=== PATIENT | female | born 1950 | race Caucasian/White ===

== ENCOUNTER → 2017-10-07 08:41 | Outpatient (CLI) | payer BC, SELFPAY ==
--- NOTE | 2017-10-07 08:47 | NM_ITS ---
CLINICAL: 66-year-old female with reported history of carcinoma of the breast. WHOLE BODY 99m Tc MDP RADIONUCLIDE BONE SCINTIGRAPHY COMPARISON: None available FINDINGS: Following the intravenous administration of 26.2 mCi of 99m Tc MDP, whole body bone images reveal: 1. Increased radiopharmaceutical concentration is multifocally apparent in the bilateral ribs, thoracic and lumbar spine, focally demonstrated in the proximal sternum, left acetabulum, right frontal-temporal and left occipital calvarium. 2. Enhanced uptake is visualized in the bilateral knees, right-left midfoot, the visualized left hand, wrist articulations bilaterally. 3. The remaining skeletal structures are scintigraphically unremarkable with normal-appearing renal images and urinary bladder activity identified. NM/Bone Scan Whole Body IMPRESSION: 1. The increased radiopharmaceutical concentration identified in the axial skeletal structures and bilateral calvarium is consistent with skeletal metastatic disease. 2. Degenerative arthritis is otherwise defined in the bilateral knees, mid foot bilaterally, left hand, both wrist articulations. Electronically Signed: Chet Villanueva DO at 12:01 EDT Tel , Service support ,
== END ==
PROVIDERS: Family Provider Internal Medicine; PCP Internal Medicine; Visit Provider Orthopaedic Surgery
DX: M54.5 Low back pain (principal); M54.6 Pain in thoracic spine
CPT/HCPCS: 78306

== ENCOUNTER 2017-11-10 12:03 | Observation (INO) | payer BC, MEDICARE, SELFPAY ==
[2017-11-10] VITALS (12 sets, daily range): BP systolic 105–126; BP diastolic 68–79; PULSE 80–137; RESP 14–18; TEMP 36.3–36.9; O2SAT 95–99; BMI 27.8
--- NOTE | 2017-11-10 12:08 | EKG12_ITS ---
Test Reason : SYNCOPE Blood Pressure : / mmHG Vent. Rate : 127 BPM Atrial Rate : 127 BPM P-R Int : 126 ms QRS Dur : 124 ms QT Int : 336 ms P-R-T Axes : 047 056 -13 degrees QTc Int : 488 ms Sinus tachycardia Right bundle branch block Abnormal ECG Confirmed by BHARGAV SHIN, BOUBACAR ([id number]), manager editorial BARBARA CHILDERS ([id number]) on 11/12/2017 1:28:28 PM Referred By: Confirmed By:BOUBACAR DURANT MD
--- NOTE | 2017-11-10 13:06 | ED.DCSUM_ITS ---
History of Present Illness Chief Complaint: Syncope Informant: Patient, Family Onset: Yesterday Narrative: Patient just finished radiation treatment for cancer in her spine and right femur. She had a lot of diarrhea yesterday, at one point during this, she was on the toilet, she felt lightheaded and passed out, her was nearby and caught her lowering her to the floor without injury, and dragged her to the bedroom where he allowed her to sleep for about an hour. She woke up and felt tired and weak, that was yesterday. Today, no more lightheadedness or passing out, but she feels persistently weak. She is able to stand but only with assistance, thought this was unusual for her, as she is not on chemotherapy, and brought her for these reasons. She has some nausea, feels queasy in her abdomen but no necessary pain, symptoms she has had before but are little more prominent right now. She has been having some reflux symptoms as a result of her radiation and has been put on Nexium twice daily, states that this morning she noticed some chest tightness that is now gone, it was when she was lying down. No vomiting or fevers. Since this episode yesterday, she has been eating and drinking well and good urine output. - Past Medical History (1) GERD (gastroesophageal reflux disease) Status: Chronic (2) Migraine Status: Chronic (3) Breast cancer metastasized to bone Status: Chronic Past Medical History - Allergies and Home Meds Allergies/Adverse Reactions: Allergies alcohol Allergy (Verified 11/10/17 12:06) Rash codeine Allergy (Verified 11/10/17 12:06) Other levofloxacin [From Levaquin] Allergy (Verified 11/10/17 12:06) Rash Penicillins Allergy (Verified 11/10/17 12:06) Rash clarithromycin [From Biaxin] Adverse Reaction (Verified 11/10/17 12:06) Other erythromycin base Adverse Reaction (Verified 11/10/17 12:06) Upset Stomach Home Medications: Home Medications Medication Instructions Recorded Calcium Carbonate/Vitamin D3 1 tab PO BID 12/21/16 [Calcium 500-Vit D3 200 Tablet] Cholecalciferol (Vitamin D3) 1 cap PO DAILY 12/21/16 [D3-2000] Esomeprazole Mag Trihydrate 40 mg PO DAILY 12/21/16 [Nexium] Famotidine [Pepcid AC] 20 mg PO QHS 12/21/16 Multivitamin 1 tab PO DAILY 12/21/16 Naproxen [Naprosyn] 500 mg PO BID PRN #20 tablet 12/21/16 Rizatriptan Benzoate [Maxalt] 10 mg PO PRN PRN 12/21/16 Topiramate [Topamax] 25 mg PO DAILY 12/21/16 Dexamethasone [Decadron] 2 mg PO DAILY 11/10/17 Primary Care Physician: Gretchen Hurt MD [Primary Care Provider] - Surgical History: - - R breast lumpectomy Lives: Spouse/ Significant Other Smoking Status: Never smoker Review of Systems All systems negative except as indicated General: Reports: Malaise. Denies: Fever Gastrointestinal: Reports: Nausea, Diarrhea - gone since yesterday. Denies: Abdominal pain Musculoskeletal: Reports: Back pain - chronic, no different. worse w/ movement. Denies: Swelling, Extremity Pain Physical Exam Vital Signs/Narrative: Vital Signs Temp Pulse Resp BP Pulse Ox 11/10/17 12:03 97.3 F L 137 H 14 108/79 96 Inital Vital Signs reviewed: Yes General: Well nourished, Well developed Head: Normocephalic, Atraumatic Eyes: Perrl, EOMI ENT: Moist mucous membranes, No rhinorrhea Neck: Supple, Nontender Cardiovascular: Regular rate, Regular rhythm, No murmurs, Tachycardia - mild Respiratory: No distress, CTA bilaterally, Chest nontender Abdomen: Soft, Nontender, Nondistended, Normal bowel sounds Back: Nontender, Normal Inspection, - - painful ROM, needs assistance to sit up , but able Extremities: Nontender, No edema Skin: Normal color, No rash Neurological: Alert, Oriented x3, Cranial nerves II-XII grossly intact, Normal Strength, Normal Sensation Psychological: Normal affect Diagnostic/Tx/Re-eval Laboratory Tests 11/10/17 11/10/17 12:15 12:15 WBC 1.5 L RBC 4.75 Hgb 13.8 Hct 38.9 MCV 81.9 MCH 29.1 MCHC 35.5 RDW 13.5 RDW Differential 38.6 Plt Count 116 L MPV 8.7 Immature Gran % (Auto) 2.000 H Neut % (Auto) 69.4 Lymph % (Auto) 12.9 L [place] % (Auto) 14.3 H Eos % (Auto) 0.7 Baso % (Auto) 0.7 Absolute Neuts (auto) 1.0 L Absolute Lymphs (auto) 0.19 L Total Counted Not Reportable Differential Comment SCANNED Diff Path Review May foll Sodium 131 L Potassium 2.6 L* Chloride 94 L Carbon Dioxide 26.0 Anion Gap 11 BUN 28 H Creatinine 0.68 Estim Creat Clear Calc 41.99 Est GFR (MDRD) Af Amer 111 Est GFR (MDRD) Non-Af 92 BUN/Creatinine Ratio 41.3 H Glucose 121 H Calcium 8.3 L Total Bilirubin 1.20 H AST 32 ALT 18 Alkaline Phosphatase 213 H Total Protein 5.7 L Albumin 2.5 L Globulin 3.2 Albumin/Globulin Ratio 0.8 L - Medical Decision Making Patient's potassium is 2.6. This would explain her significant weakness. She states that she could stand but only with significant assistance and feels too weak to go home. I discussed with Dr. Vicente for admission/inpatient observation , I started IV and oral potassium on her. Her kidney function is normal. ED Disposition - Plan for ED Patient: Disposition: Acute Care Hospital [facility] Chief Complaint: Syncope Diagnosis: Hypokalemia, Acute diarrhea, Generalized weakness
[2017-11-10] MEDS: 0.9% Normal Saline 1,000 ML 999 ML IV (13:33)
[2017-11-10] MEDS: Ondansetron ODT 4 MG Tablet 8 MG PO (13:34)
[2017-11-10] MEDS: Mag Hydrox/Al Hydrox/Simeth 30 ML UDC PO (13:34)
[2017-11-10 13:48] LABS: ALB/GLOB Ratio 0.8 RATIO (0.9-2.4); AST(SGOT) 32 U/L (15-37); Alanine Aminotransfer ALT/SGPT 18 U/L (13-56); Albumin, Serum 2.5 g/dL (3.2-5.0); Alkaline Phosphatase 213 U/L (45-117); Anion Gap 11 (5-15); BUN 28 mg/dL (7-18); BUN/Creat Ratio 41.3 RATIO (10-20); Calcium,Total 8.3 mg/dL (8.5-10.1); Chloride 94 mmol/L (98-107); Creatinine, Serum 0.68 mg/dL (0.55-1.02); EST Glomerular Filtration Rate 92 mL/min (>60); Est Glom Filt Rate - Afr Amer 111 mL/min (>60); Estimated Creatinine Clearance 41.99 ml/min; Globulin 3.2 g/dL (2.2-4.2); Glucose 121 mg/dL (74-106); Potassium 2.6 mmol/L (3.5-5.1); Protein, Total 5.7 g/dL (6.4-8.2); Sodium Level 131 mmol/L (136-145)
[2017-11-10 13:59] LABS: Absolute Lymphocyte Count 0.19 X10^3/ul (0.83-4.51); Basophil# 0.01 X10^3/uL; Basophil% 0.7 % (0-1); Eosinophil# 0.01 X10^3/uL; Eosinophils% 0.7 % (0-5); Hematocrit 38.9 % (37-47); Lymphocyte # 0.19 X10^3/ul (4.0); Lymphocyte % 12.9 % (19-41); Mean Corpuscular Volume 81.9 fL (81-99); Mean Platelet Vol. 8.7 fl (6.2-12.0); Monocyte# 0.21 X10^3/uL; Monocyte% 14.3 % (0-10); Neutrophil # 1.02 X10^3/uL (2.7-7.7); Neutrophil % 69.4 % (47-70); Platelet Count 116 K/mm3 (150-450); RBC Distribution Width CV 13.5 % (11.6-14.6); RBC Distribution Width SD 38.6 fl (35.1-43.9); Red Blood Count 4.75 M/mm3 (4.2-5.4); White Blood Count 1.5 K/mm3 (4.4-11.0)
[2017-11-10 14:00] LABS: Differential Indicated SCAN CRITERIA MET; POSITIVE COUNT YES; POSITIVE DIFFERENTIAL YES; POSITIVE MORPHOLOGY YES
[2017-11-10 14:01] LABS: Hemoglobin 13.8 g/dl (12.0-15.0); Mean Corp Hgb Conc 35.5 g/gl (32-36); Mean Corpuscular Hgb 29.1 pg (27.0-32.0)
[2017-11-10 14:10] LABS: Differential Comment SCANNED
--- NOTE | 2017-11-10 15:06 | NURSING ---
MED SURG OBS HYPOKALEMIA, DEHYDRATION AFTER CHEMO SELENE
--- NOTE | 2017-11-10 15:22 | NURSING ---
DR MORTON IN ER
[2017-11-10 15:25] LABS: Magnesium 1.9 mg/dL (1.6-2.6); Phosphorus 2.5 mg/dL (2.5-4.9)
--- NOTE | 2017-11-10 15:54 | HP.PCM_ITS ---
Problem List (1) GERD (gastroesophageal reflux disease) Status: Chronic (2) Migraine Status: Chronic (3) Breast cancer metastasized to bone Status: Chronic (4) Hypokalemia Status: Acute (5) Acute diarrhea Status: Acute (6) Generalized weakness Status: Acute History of Present Illness Date of Admission: 11/10/17 Chief Complaint: Generalized weakness and syncope yesterday The patient is a 67 year old F with history of seizure breast, diagnosed in 2010 , follows Dr. 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 She had 2-3 watery diarrhea and she also passed out when she stood up but her caught up and she did not fall. In ED, she was found very dehydrated. Orthostatic does not show postural hypotension. Potassium was found very low, K2.6 EKG shows sinus tachycardia with right bundle branch block at 1 27 bpm. Previous EKG in July 2012 shows sinus bradycardia with right bundle block. [] Past Medical History Past Medical History (Chronic Problems): Chronic Problems GERD (gastroesophageal reflux disease) (Chronic) Migraine (Chronic) Breast cancer metastasized to bone (Chronic) Allergies alcohol Allergy (Verified 11/10/17 12:06) Rash codeine Allergy (Verified 11/10/17 12:06) Other levofloxacin [From Levaquin] Allergy (Verified 11/10/17 12:06) Rash Penicillins Allergy (Verified 11/10/17 12:06) Rash clarithromycin [From Biaxin] Adverse Reaction (Verified 11/10/17 12:06) Other erythromycin base Adverse Reaction (Verified 11/10/17 12:06) Upset Stomach Home Medications: Ambulatory Orders Medication Instructions Recorded Calcium Carbonate/Vitamin D3 1 tab PO BID 12/21/16 [Calcium 500-Vit D3 200 Tablet] Cholecalciferol (Vitamin D3) 1 cap PO DAILY 12/21/16 [D3-2000] Esomeprazole Mag Trihydrate 40 mg PO DAILY 12/21/16 [Nexium] Famotidine [Pepcid AC] 20 mg PO QHS 12/21/16 Multivitamin 1 tab PO DAILY 12/21/16 Naproxen [Naprosyn] 500 mg PO BID PRN #20 tablet 12/21/16 Rizatriptan Benzoate [Maxalt] 10 mg PO PRN PRN 12/21/16 Topiramate [Topamax] 25 mg PO DAILY 12/21/16 Dexamethasone [Decadron] 2 mg PO DAILY 11/10/17 Surgical History: - - R breast lumpectomy Lives: Spouse/ Significant Other Smoking Status: Never smoker - *Family History Paternal History Items: No pertinent history Review of Systems Constitutional: Denies: Chills, Fever, Weight Change HEENT: Denies: Head Aches, Sinus Congestion, Sinus Drainage Cardiovascular: Reports: Syncope. Denies: Chest Pain, Palpitations Respiratory: Denies: Cough, Shortness of breath at rest, Sputum production Gastrointestinal: Reports: Diarrhea. Denies: Abdominal Pain, Nausea, Vomiting Genitourinary: Denies: Dysuria Musculoskeletal: Denies: Joint Pain, Joint Tenderness Skin: Denies: Rash, Wounds Neurological: Denies: Numbness, Tingling, Focal weakness Psychiatric: Denies: Anxiety, Depression, Homicidal Ideations, Suicidal Ideations Hematologic/ Lymphatic: Denies: Easy Bruising, Easy Bleeding VTE Information - Inpt Only VTE Present on Admission: No VTE Mechan Device Prophylaxis: SCD's VTE Pharm Prophylaxis ordered?: Yes Patient Problems: Active and Suspected Problems Hypokalemia (Acute) Acute diarrhea (Acute) Generalized weakness (Acute) - Physical Exam General: Alert, Oriented x3, Cooperative HEENT: Atraumatic, PERRLA, EOMI, Normocephalic Oral: Dry Mucosa Neck: Supple, No JVD, Negative Carotid Bruits Lungs: Clear to auscultation, Normal air movement, No rhonchi, No wheeze, No rales Cardiovascular: Regular rate, Regular Rhythm, Normal S1, Normal S2, No murmurs Abdomen: Bowel Sounds Present, Soft, Non Tender Extremities: No edema, Capillary Refill Less than 3 Seconds Skin: No rashes, No breakdown Musculoskeletal: Arthritic Changes, Muscle Wasting, Tenderness - Over thoracic spine Neurological: Cranial nerves II-XII grossly intact, Neuro grossly intact Psych/Mental Status: Normal Affect, Appropriate Vital Signs Temp Pulse Resp BP Pulse Ox 97.3 F L 85 14 106/70 99 11/10/17 12:03 11/10/17 15:09 11/10/17 15:09 11/10/17 15:09 11/10/17 15:09 Oxygen Delivery Method Room Air Assessment/Plan Active and Suspected Problems Hypokalemia (Acute) Acute diarrhea (Acute) Generalized weakness (Acute) The patient is a 67 year old F with history of seizure breast, diagnosed in 2010 , follows Dr. 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 She had 2-3 watery diarrhea and she also passed out when she stood up but her caught up and she did not fall. In ED, she was found very dehydrated. Orthostatic does not show postural hypotension. Potassium was found very low, K2.6 EKG shows sinus tachycardia with right bundle branch block at 1 27 bpm. Previous EKG in July 2012 shows sinus bradycardia with right bundle block. Patient denies chest pain, any change in breathing, palpitation or diaphoresis. No history of coronary artery disease. [] 1. Syncope most probably secondary to dehydration from diarrhea: Patient is being admitted in MedSur floor on telemetry. IV fluid rehydration with normal saline. Monitor intake and output. Orthostatic vital check tomorrow a.m. 2D echo tomorrow a.m. 2. Acute hypokalemia most probably from diarrhea: Potassium replacement. Monitor BMP tomorrow a.m. 3. Acute hypovolemic hypotonic hyponatremia: Sodium 131. Baseline runs around 139-141. On IV fluid normal saline as mentioned above 4. CA breast with metastases to bone, stage IV on radiotherapy. Patient follows Dr. Hoffman. Other chronic comorbidities include migraine, GERD. Controlled. Patient does not have headache now. Home medication reconciliation done. Patient is on PPI and famotidine. DVT prophylaxis, moderate risk: On heparin 500 Danae's twice daily and bilateral SCDs. Laboratory Results 11/10/17 12:15: WBC 1.5 L, RBC 4.75, Hgb 13.8, Hct 38.9, MCV 81.9, MCH 29.1, MCHC 35.5, RDW 13.5, RDW Differential 38.6, Plt Count 116 L, MPV 8.7, Immature Gran % (Auto) 2.000 H, Neut % (Auto) 69.4, Lymph % (Auto) 12.9 L, [place] % (Auto) 14.3 H, Eos % (Auto) 0.7, Baso % (Auto) 0.7, Absolute Neuts (auto) 1.0 L, Absolute Lymphs (auto) 0.19 L, Total Counted Not Reportable, Differential Comment SCANNED, Diff Path Review October11/10/17 12:15: Sodium 131 L, Potassium 2.6 L*, Chloride 94 L, Carbon Dioxide 26.0, Anion Gap 11, BUN 28 H, Creatinine 0.68, Estim Creat Clear Calc 41.99, Est GFR (MDRD) Af Amer 111, Est GFR (MDRD) Non-Af 92, BUN/Creatinine Ratio 41.3 H, Glucose 121 H, Calcium 8.3 L, Total Bilirubin 1.20 H, AST 32, ALT 18, Alkaline Phosphatase 213 H, Total Protein 5.7 L, Albumin 2.5 L, Globulin 3.2, Albumin/Globulin Ratio 0.8 L 11/10/17 12:15: Phosphorus 2.5, Magnesium 1.9 Code Visit OBSV E&M: 22813 Initial observation care L3
--- NOTE | 2017-11-10 16:11 | ECHOD_ITS ---
Reason For Study: Syncope Procedure This was a 2D Doppler, Color Flow transthoracic echocardiogram. The exam was of adequate technical quality. Exam performed portable in patient room. Left Ventricle Normal LV size. Left ventricular systolic function is hyperdynamic. The estimated ejection fraction is 75 %. No evidence for diastolic dysfunction. No regional wall motion abnormalities noted. Right Ventricle Normal RV size. Normal systolic function. Atria Normal left atrium. Normal right atrium. No doppler evidence for ASD. Mitral Valve There is no mitral annular calcification. Mild mitral valve prolapse. Trivial mitral valve insufficiency. Tricuspid Valve Normal tricuspid valve. Trivial tricuspid valve insufficiency. Aortic Valve Trisinus/trileaflet aortic valve. Normal aortic valve. Pulmonic Valve Normal pulmonic valve. Great Vessels Normal sized aortic root. Pericardium/Pleural No pericardial effusion. MMode/2D Measurements & Calculations LVIDd: 3.5 cm IVSd: 1.1 cm Ao root diam: 2.6 cm LVIDs: 1.6 cm LVPWd: 1.1 cm LA dimension: 2.7 cm FS: 54.5 % LAV(MOD-bp): 21.6 ml LA A4 area: 9.1 cm2 RA A4 area: 7.8 cm2 LAV(MOD-bp) Indexed: 12.7 ml/m2 LAV(MOD-sp2): 23.9 ml LAV(MOD-sp4): 18.8 ml Doppler Measurements & Calculations MV E max jerry: 60.0 cm/sec Lat Peak E' Jerry: 9.0 cm/sec Med Peak E' Jerry: 6.1 cm/sec MV A max jerry: 85.3 cm/sec E/E' lat: 6.7 E/E' med: 9.9 MV E/A: 0.70 Ao V2 max: 166.4 cm/sec LV V1 max: 126.1 cm/sec PA V2 max: 153.1 cm/sec Ao max P.1 mmHg LV V1 max P.4 mmHg Interpretation Summary Left ventricular systolic function is hyperdynamic. The estimated ejection fraction is 75 %. Mild mitral valve prolapse. Trivial mitral valve insufficiency. Trivial tricuspid valve insufficiency. No evidence for diastolic dysfunction. Ordering Physician: Eliseo Vicente Referring Physician: Gretchen Hurt Performed By: Kaylynn Zimmer RDCS
[2017-11-10] MEDS: 0.9% Normal Saline 1,000 ML 150 ML IV ×2 (16:30→22:13)
[2017-11-10] MEDS: Heparin Injection (Vial) 5,000 UNIT/ML VIAL 5000 UNIT SC (18:43)
[2017-11-10 18:57] LABS: Bacteria 0 SEEN /hpf (None Seen); Mucous, Urine 0 SEEN /hpf (<or=2+); Red Blood Cells-Urine 0 SEEN /hpf (0-5)
[2017-11-10 19:13] LABS: Color, Urine Yellow (Yellow); Glucose, Dipstick Normal (Normal); Ketone-Dipstick Negative (Negative); Leukocyte Esterase-Dipstick Negative /ul (Negative); Nitrite-Dipstick Negative (Negative); Occult Blood-Urine Negative /ul (Negative); Protein-Dipstick Negative (Negative); Urine Bilirubin Dipstick Negative (Negative); Urine Clarity Sl. Cloudy (Clear); Urine Urobilinogen Normal (Normal)
[2017-11-10 19:19] LABS: Squamous Epithelial Cells - UA 0-5 SEEN /hpf (5-10); White Blood Cells 0-5 SEEN /hpf (0-5)
[2017-11-10] MEDS: Famotidine 20 MG Tablet PO (22:15)
[2017-11-10] MEDS: Calcium Carb/Vitamin D 1 TABLET Tablet PO (22:15)
[2017-11-10] MEDS: Topiramate 25 MG Tablet PO (22:54)
[2017-11-11] VITALS (15 sets, daily range): BP systolic 117–143; BP diastolic 59–106; PULSE 80–130; RESP 16–18; TEMP 36.4–37.1; O2SAT 96–99
[2017-11-11] MEDS: 0.9% Normal Saline 1,000 ML 150 ML IV (04:57)
--- NOTE | 2017-11-11 06:10 | NURSING ---
while doing orthostatic vitals pt became very anxious. when returned to bed calmed down heart rate wnl
[2017-11-11 06:39] LABS: Hematocrit 32.7 % (37-47); Hemoglobin 11.5 g/dl (12.0-15.0); Mean Corp Hgb Conc 35.2 g/gl (32-36); Mean Corpuscular Hgb 29.6 pg (27.0-32.0); Mean Corpuscular Volume 84.3 fL (81-99); Mean Platelet Vol. 8.2 fl (6.2-12.0); Platelet Count 73 K/mm3 (150-450); RBC Distribution Width SD 42.2 fl (35.1-43.9); Red Blood Count 3.88 M/mm3 (4.2-5.4)
[2017-11-11 06:40] LABS: Differential Indicated MANUAL DIFF; POSITIVE COUNT YES; POSITIVE DIFFERENTIAL YES; POSITIVE MORPHOLOGY YES; White Blood Count 1.2 K/mm3 (4.4-11.0)
[2017-11-11 06:41] LABS: Anion Gap 7 (5-15); BUN 16 mg/dL (7-18); Calcium,Total 7.6 mg/dL (8.5-10.1); Chloride 105 mmol/L (98-107); Creatinine, Serum 0.32 mg/dL (0.55-1.02); EST Glomerular Filtration Rate 218 mL/min (>60); Est Glom Filt Rate - Afr Amer 263 mL/min (>60); Estimated Creatinine Clearance 41.99 ml/min; Glucose 76 mg/dL (74-106); Potassium 3.3 mmol/L (3.5-5.1); Sodium Level 138 mmol/L (136-145)
[2017-11-11 07:28] LABS: Lymphocyte 22 % (19-41); Metamyelocyte 1 % (0-1); Neutrophil-Band 35 % (0-5); Neutrophil-Segmented 42 % (47-70); Nucleated Red Bld Cells,Manual 3 % (0-5); Total Cells Counted 100 (MANUAL DIFF)
[2017-11-11 07:29] LABS: Platelet Estimate SLT DEC (ADEQ); Red Cell Morphology NORM C+C NORMAL (NORM C&C)
[2017-11-11 07:30] LABS: Differential Comment M
[2017-11-11] MEDS: Multivitamins,Therapeutic Tablet 1 TABLET PO (07:44)
--- NOTE | 2017-11-11 09:35 | PN_ITS ---
Patient Problems: Active and Suspected Problems Hypokalemia (Acute) Acute diarrhea (Acute) Generalized weakness (Acute) Subjective: Chief complaint: Follow-up after admission for syncopal episode, acute diarrheal illness, hypokalemia, hyponatremia, leukopenia, neutropenia and thrombocytopenia. Patient seen and examined. No acute events overnight. She is still complaining of diarrhea, 3 times since last night. Denied nausea vomiting. She complains of mild abdominal cramps. Denies fever chills. Denies urinary symptoms. No chest pain or shortness of breath. Denied dizziness or lightheadedness. She is afebrile, blood pressure stable, pulse ox is maintained on room air. - Physical Exam General: Alert, Oriented x3, Cooperative, No apparent distress HEENT: Atraumatic, PERRLA, EOMI Oral: Moist Mucosa, No Gingival or Mucosal Lesions/ Ulcerations Neck: Supple, No JVD, Negative Carotid Bruits, Trachea Midline, Thyroid Normal Size and Texture Lungs: Clear to auscultation, No rhonchi, No wheeze, No rales, Diminished Cardiovascular: Regular rate, Regular Rhythm, Normal S1, Normal S2, No murmurs Abdomen: Bowel Sounds Present, Soft, Non Tender, Non-Distended, No Hepato- splenomegaly Extremities: No clubbing, No cyanosis, No edema Skin: No rashes, No breakdown Lymphatic: No Cervical, Supraclavicular, or Inguinal Adenopathy Neurological: Cranial nerves II-XII grossly intact, Motor Exam 5/5 strength throughout Psych/Mental Status: Normal Affect, Appropriate, Alert and oriented to time, place, person, mood and affect Vital Signs Temp Pulse Resp BP Pulse Ox 98.3 F 90 16 133/83 H 99 11/11/17 02:31 11/11/17 06:50 11/11/17 02:31 11/11/17 06:50 11/11/17 06:50 Oxygen Delivery Method Room Air Weight: 151 lb 14.376 oz Body Mass Index (BMI) 27.8 Orthostatic Vital Signs Start: 11/10/17 16:50 Freq: 0600 Status: Active Protocol: Activity Type Activity Date Activity User E-Sign Co-Sign Detail Recorded Client Recorded Date Recorded By Document 11/11/17 06:08 [facility] [id number] 11/11/17 06:10 [place] 11/11/17 06:08 Orthostatic Vitals Standing -Blood Pressure (90/60-120/80) 140/100 H -Extremity Use Left Arm -Pulse Rate (60-100) 130 H Sitting -Blood Pressure (90/60-120/80) 143/106 H -Extremity Use Left Arm -Pulse Rate (60-100) 106 H Lying -Blood Pressure (90/60-120/80) 134/74 H -Extremity Use Left Arm -Pulse Rate (60-100) 87 Intake and Output for Last 24 Hours 11/09/17 11/10/17 11/11/17 23:59 23:59 23:59 Intake Total 585 / 585 1805 / 1805 Output Total 250 / 250 300 / 300 Balance 335 / 335 1505 / 1505 Laboratory Tests Past 24 Hrs 11/10/17 11/10/17 11/11/17 16:46 18:45 05:44 WBC 1.2 L* RBC 3.88 L Hgb 11.5 L Hct 32.7 L MCV 84.3 MCH 29.6 MCHC 35.2 RDW 14.0 RDW Differential 42.2 Plt Count 73 L MPV 8.2 Neut % (Auto) Not Reportable Absolute Neuts (auto) Not Reportable Total Counted 100 Neutrophils % (Manual) 42 L Band Neutrophils % 35 H Lymphocytes % (Manual) 22 Metamyelocytes % 1 Nucleated RBCs/100 WBC 3 Differential Comment M Diff Path Review May foll Platelet Estimate SLT DEC RBC Morphology NORM C+C Sodium Potassium Chloride Carbon Dioxide Anion Gap BUN Creatinine Estim Creat Clear Calc Est GFR (MDRD) Af Amer Est GFR (MDRD) Non-Af BUN/Creatinine Ratio Glucose Calcium Troponin I 0.036 Urine Color Yellow Urine Clarity Sl. Cloudy Urine pH 7.0 Ur Specific [place] 1.010 Urine Protein Negative Urine Glucose (UA) Normal Urine Ketones Negative Urine Occult Blood Negative Urine Nitrite Negative Urine Bilirubin Negative Urine Urobilinogen Normal Ur Leukocyte Esterase Negative Urine RBC 0 SEEN Urine WBC 0-5 SEEN Ur Squamous Epith Cells 0-5 SEEN Urine Bacteria 0 SEEN Urine Mucus 0 SEEN 11/11/17 05:44 WBC RBC Hgb Hct MCV MCH MCHC RDW RDW Differential Plt Count MPV Neut % (Auto) Absolute Neuts (auto) Total Counted Neutrophils % (Manual) Band Neutrophils % Lymphocytes % (Manual) Metamyelocytes % Nucleated RBCs/100 WBC Differential Comment Diff Path Review Platelet Estimate RBC Morphology Sodium 138 Potassium 3.3 L Chloride 105 Carbon Dioxide 26.0 Anion Gap 7 BUN 16 Creatinine 0.32 L Estim Creat Clear Calc 41.99 Est GFR (MDRD) Af Amer 263 Est GFR (MDRD) Non-Af 218 BUN/Creatinine Ratio 50.0 H Glucose 76 Calcium 7.6 L Troponin I Urine Color Urine Clarity Urine pH Ur Specific [place] Urine Protein Urine Glucose (UA) Urine Ketones Urine Occult Blood Urine Nitrite Urine Bilirubin Urine Urobilinogen Ur Leukocyte Esterase Urine RBC Urine WBC Ur Squamous Epith Cells Urine Bacteria Urine Mucus Medical Necessity - Tobacco Use Smoking Status: Never smoker Tobacco Use: Non-smoker Assessment/Plan Active and Suspected Problems Hypokalemia (Acute) Acute diarrhea (Acute) Generalized weakness (Acute) This is a 67 years old female patient presented to the emergency room because of syncope, weakness and diarrhea and she was found to have severe hypokalemia, hyponatremia, leukopenia, neutropenia and thrombocytopenia. #1 syncopal episode: Dehydration because of acute diarrhea. Today, blood pressure stabilized. She denied dizziness or lightheadedness. She is on IV fluids. 2D echocardiogram revealed ejection fraction 75%, LV function is hyperdynamic. Plan: Encourage oral intake, change IV fluids to normal saline with potassium chloride at 75 cc/h, repeat orthostatic vitals tomorrow morning, repeat CBC and BMP tomorrow morning, PT OT evaluation and treatment. #2 acute diarrheal illness: She still symptomatic having diarrhea. Denied abdominal pain, nausea vomiting. Denies fever chills. Plan: Stool for C. difficile, stool for enteric pathogens, continue hydration. #3 hypokalemia/hyponatremia: Attributed to acute diarrhea in addition to HCTZ that she has been taking. Serum phosphorus and magnesium are normal. She is on potassium replacement orally as well as IV fluids. Potassium improved from 2.6 on admission up to 3.2 this morning. Plan: Change IV fluids to normal saline with IV potassium chloride at 75 cc/h, DC. Potassium, repeat BMP tomorrow morning. #4 leukopenia/neutropenia/thrombocytopenia: Likely because of radiation therapy and breast cancer that metastasized to bone, thoracic spine and also could be worsened by hemodilution she has been on large amounts of IV fluids.. She is afebrile, no evidence of infection. No evidence of bleeding. Plan: Neutropenic precautions, repeat CBC with differential tomorrow morning. #5 metastatic breast cancer, with metastases to bone, stage IV: Completed radiation therapy, plan to start chemotherapy in the near future, she follows up with Dr. Hoffman as outpatient. #6 DVT prophylaxis: Subcu heparin. This note was generated with [employer] dictation software. It may contain incorrect words, spelling, and punctuation that were not noted in checking the note before signing. Code Visit Inpatient E&M: 99643 Subs Hosp L3
[2017-11-11] MEDS: Pantoprazole Sodium 40 MG Tablet PO (10:07)
[2017-11-11] MEDS: Calcium Carb/Vitamin D 1 TABLET Tablet PO ×2 (10:08→22:07)
[2017-11-11] MEDS: Heparin Injection (Vial) 5,000 UNIT/ML VIAL 5000 UNIT SC ×2 (10:08→22:07)
[2017-11-11 11:06] LABS: Pathologist Review Reviewed
[2017-11-11 11:08] LABS: Pathologist Review Reviewed
--- NOTE | 2017-11-11 12:36 | CASEMGMT ---
Social Work Note NORA Linares updated this worker that pt has weakness and that PT has seen pt and that the recommendation is for further skilled therapy. NORA Linares states that pt is agreeable to home health care. SW updated NORA Dougherty of this. Plan: MARISA Coronado PRODUCTION TEAM MANAGER, PIGMENT MAKING SUPERVISOR
--- NOTE | 2017-11-11 14:23 | CASEMGMT ---
RN TERRANCE DC Planning Assessment completed, see link. Home care recommended by PT/OT. -Intro role of CM to patient in room. States she is normally independent, however increased weakness recently. R -RN TERRANCE discussed home care. pt is agreeable, no preference. [facility] and able to staff. Referral faxed. Pt updated and agency/phone # entered in DC appointments. Copy given to pt. [facility] PH: [phone] FX: [phone]
--- NOTE | 2017-11-11 16:16 | CHAPLAIN ---
Type of Pastoral Visit _x__ Initial Visit ___ Follow-up Visit ___ On-call Visit ___ General Patient Visit ___ Spiritual Assessment ___ Family Conference ___ Bereavement ___ Rapid Response ___ Code Blue ___ Other (describe below) Pastoral Care Referral From _x__ Patient ___ Family ___ Nurse ___ Physician ___ Avionics Manager ___ Election Supervisor ___ Other (describe below) Sacrament/Intervention _x__ Active listening ___ Anointing ___ Congregational ___ Bereavement ___ Communion ___ Lorenza exploration ___ ___ Life review _x__ Prayer ___ Reconciliation ___ Sacrament of Sick _x__ Supportive presence ___ Wedding ___ Other (describe below) Pastoral Comments
[2017-11-11] MEDS: Topiramate 25 MG Tablet PO (22:07)
[2017-11-11] MEDS: Famotidine 20 MG Tablet PO (22:07)
[2017-11-12] VITALS (9 sets, daily range): BP systolic 120–140; BP diastolic 55–101; PULSE 90–146; RESP 16–18; TEMP 37.1–37.2; O2SAT 97–98
[2017-11-12 05:58] LABS: Hematocrit 31.8 % (37-47); Mean Corp Hgb Conc 34.6 g/gl (32-36); Mean Corpuscular Hgb 29.6 pg (27.0-32.0); Mean Corpuscular Volume 85.5 fL (81-99); Mean Platelet Vol. 8.3 fl (6.2-12.0); Platelet Count 67 K/mm3 (150-450); RBC Distribution Width CV 14.4 % (11.6-14.6); RBC Distribution Width SD 43.8 fl (35.1-43.9); Red Blood Count 3.72 M/mm3 (4.2-5.4)
[2017-11-12 06:11] LABS: Anion Gap 8 (5-15); BUN 14 mg/dL (7-18); BUN/Creat Ratio 60.1 RATIO (10-20); Calcium,Total 7.6 mg/dL (8.5-10.1); Chloride 107 mmol/L (98-107); Creatinine, Serum 0.23 mg/dL (0.55-1.02); EST Glomerular Filtration Rate 314 mL/min (>60); Est Glom Filt Rate - Afr Amer 380 mL/min (>60); Estimated Creatinine Clearance 41.99 ml/min; Glucose 89 mg/dL (74-106); Potassium 4.2 mmol/L (3.5-5.1); Sodium Level 140 mmol/L (136-145)
--- NOTE | 2017-11-12 06:13 | NURSING ---
while standing to preform orthostatic BP pt's heart rate and BP became elevate. Improved after returning to bed
[2017-11-12 06:52] LABS: Lymphocyte 16 % (19-41); Neutrophil-Band 20 % (0-5); Neutrophil-Segmented 64 % (47-70); Total Cells Counted 25 (MANUAL DIFF)
[2017-11-12 06:55] LABS: Differential Indicated MANUAL DIFF; POSITIVE COUNT YES; POSITIVE DIFFERENTIAL YES; POSITIVE MORPHOLOGY YES; White Blood Count 1.4 K/mm3 (4.4-11.0)
[2017-11-12 07:04] LABS: Absolute Neutrophil Count 1.1 X10^3/uL (2.0-7.7)
[2017-11-12 07:05] LABS: Absolute Lymphocyte Count 0.22 X10^3/ul (0.83-4.51)
--- NOTE | 2017-11-12 07:56 | PCM.PROGNOTE ---
Patient Problems: Active and Suspected Problems Hypokalemia (Acute) Acute diarrhea (Acute) Generalized weakness (Acute) Subjective: Chief complaint: Follow-up after admission for syncopal episode, acute diarrheal illness, abdominal pain/cramping, hypokalemia, hyponatremia, leukopenia, neutropenia and thrombocytopenia. Patient seen and examined. No acute events overnight. She is still complaining of abdominal pain described as cramping, could not eat for the last few days. Denied nausea or vomiting. She has no more diarrhea. Her vital signs are stable. - Physical Exam General: Alert, Oriented x3, Cooperative, No apparent distress HEENT: Atraumatic, PERRLA, EOMI Oral: Moist Mucosa, No Gingival or Mucosal Lesions/ Ulcerations Neck: Supple, No JVD, Negative Carotid Bruits, Trachea Midline, Thyroid Normal Size and Texture Lungs: Clear to auscultation, No rhonchi, No wheeze, No rales, Diminished Cardiovascular: Regular rate, Regular Rhythm, Normal S1, Normal S2, No murmurs, PMI Normal Abdomen: Bowel Sounds Present, Soft, Non-Distended, No Hepato-splenomegaly, Tender - Generalized mild tenderness, no guarding or rigidity. Extremities: No clubbing, No cyanosis, No edema Skin: No rashes, No breakdown Lymphatic: No Cervical, Supraclavicular, or Inguinal Adenopathy Neurological: Cranial nerves II-XII grossly intact, Neuro grossly intact Psych/Mental Status: Normal Affect, Appropriate Vital Signs Temp Pulse Resp BP Pulse Ox 98.7 F 90 16 122/70 H 97 11/12/17 02:15 11/12/17 06:20 11/12/17 02:15 11/12/17 06:20 11/12/17 02:15 Oxygen Delivery Method Room Air Weight: 151 lb 14.376 oz Body Mass Index (BMI) 27.8 Orthostatic Vital Signs Start: 11/10/17 16:50 Freq: 0600 Status: Active Protocol: Activity Type Activity Date Activity User E-Sign Co-Sign Detail Recorded Client Recorded Date Recorded By Document 11/12/17 06:11 [facility] [id number] 11/12/17 06:12 [facility] 11/12/17 06:11 Orthostatic Vitals Standing -Blood Pressure (90/60-120/80) 140/101 H -Extremity Use Right Arm -Pulse Rate (60-100) 146 H Sitting -Blood Pressure (90/60-120/80) 120/95 H -Extremity Use Right Arm -Pulse Rate (60-100) 134 H Lying -Blood Pressure (90/60-120/80) 124/80 H -Extremity Use Right Arm -Pulse Rate (60-100) 108 H Intake and Output for Last 24 Hours 11/10/17 11/11/17 11/12/17 23:59 23:59 23:59 Intake Total 585 / 585 4367 / 4367 875 / 875 Output Total 250 / 250 300 / 300 Balance 335 / 335 4067 / 4067 875 / 875 Laboratory Tests Past 24 Hrs 11/11/17 11/12/17 11/12/17 05:44 05:24 05:24 WBC 1.4 L* RBC 3.72 L Hgb 11.0 L Hct 31.8 L MCV 85.5 MCH 29.6 MCHC 34.6 RDW 14.4 RDW Differential 43.8 Plt Count 67 L MPV 8.3 Neut % (Auto) Not Reportable Absolute Neuts (auto) 1.1 L Absolute Lymphs (auto) 0.22 L Total Counted 25 Neutrophils % (Manual) 64 Band Neutrophils % 20 H Lymphocytes % (Manual) 16 L Diff Path Review Reviewed October Sodium 140 Potassium 4.2 Chloride 107 Carbon Dioxide 25.0 Anion Gap 8 BUN 14 Creatinine 0.23 L Estim Creat Clear Calc 41.99 Est GFR (MDRD) Af Amer 380 Est GFR (MDRD) Non-Af 314 BUN/Creatinine Ratio 60.1 H Glucose 89 Calcium 7.6 L Medical Necessity - Tobacco Use Smoking Status: Never smoker Tobacco Use: Non-smoker Assessment/Plan Active and Suspected Problems Hypokalemia (Acute) Acute diarrhea (Acute) Generalized weakness (Acute) This is a 67 years old female patient presented to the emergency room because of syncope, weakness and diarrhea and she was found to have severe hypokalemia, hyponatremia, leukopenia, neutropenia and thrombocytopenia. #1 syncopal episode: Dehydration because of acute diarrhea. Today, blood pressure stabilized. She denied dizziness or lightheadedness. Repeat orthostatic vitals this morning was unremarkable. She is on IV fluids. 2D echocardiogram revealed ejection fraction 75%, LV function is hyperdynamic. Patient is not eating because of abdominal cramps and discomfort. Plan to start her on Bentyl, diet as tolerated. #2 acute diarrheal illness: No stool sample sent for C. difficile or enteric pathogens. Denied abdominal pain, nausea vomiting. Denies fever chills. Resolved. 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 [employer] is not working. She has not been eating for the last 2 days. She is on Decadron. After discussion with Dr. Hoffman, we will start her on Bentyl every 6 hours, IV morphine ?1. #4 hypokalemia/hyponatremia: Attributed to acute diarrhea in addition to HCTZ that she has been taking. Serum phosphorus and magnesium are normal. Potassium replaced and corrected, today's potassium is 4.2. #5 leukopenia/neutropenia/thrombocytopenia: Likely because of radiation therapy and breast cancer that metastasized to bone, thoracic spine. No evidence of bleeding, infection. Absolute neutrophil count is 1100, it was not reportable yesterday. #6 metastatic breast cancer, with metastases to bone, stage IV: Completed radiation therapy, plan to start chemotherapy in the near future, she follows up with Dr. Hoffman as outpatient. #7 DVT prophylaxis: Subcu heparin. This note was generated with [employer] software. It may contain incorrect words, spelling, and punctuation that were not noted in checking the note before signing.
[2017-11-12] MEDS: Dicyclomine 10 MG Capsule PO ×2 (08:17→11:51)
[2017-11-12] MEDS: Morphine 4 MG/ML Syringe 1 MG IV (08:17)
[2017-11-12] MEDS: 0.9% Normal Saline 1,000 ML 75 ML IV (08:18)
[2017-11-12] MEDS: Multivitamins,Therapeutic Tablet 1 TABLET PO (08:19)
[2017-11-12] MEDS: Pantoprazole Sodium 40 MG Tablet PO (10:50)
[2017-11-12] MEDS: Calcium Carb/Vitamin D 1 TABLET Tablet PO (10:50)
[2017-11-12] MEDS: Heparin Injection (Vial) 5,000 UNIT/ML VIAL 5000 UNIT SC (10:50)
[2017-11-12 12:16] LABS: Pathologist Review Reviewed
--- NOTE | 2017-11-12 12:52 | PCM.DC ---
- Discharge Diagnoses Current Active Problems: Current Active and Chronic Problems GERD (gastroesophageal reflux disease) (Chronic) Migraine (Chronic) Breast cancer metastasized to bone (Chronic) Hypokalemia (Acute) Acute diarrhea (Acute) Generalized weakness (Acute) You will use the following diet at home:: Other - light diet, advance as tolerated. Your food should be the consistency of: Regular Discharge Activity: Return to Normal Activity Weight Bearing Status: Weight bearing as tolerated Call your doctor if you observe: Fever of 101 or Higher, Shortness of breath, Dizziness, Fainting spells, Chest pain, Increased palpitations (irregular heartbeat), Uncontrolled pain Allergies/Adverse Reactions: Allergies alcohol Allergy (Verified 11/10/17 12:06) Rash codeine Allergy (Verified 11/10/17 12:06) Other levofloxacin [From Levaquin] Allergy (Verified 11/10/17 12:06) Rash Penicillins Allergy (Verified 11/10/17 12:06) Rash clarithromycin [From Biaxin] Adverse Reaction (Verified 11/10/17 12:06) Other erythromycin base Adverse Reaction (Verified 11/10/17 12:06) Upset Stomach Medications to take at Discharge Calcium Carbonate/Vitamin D3 [Calcium 500-Vit D3 200 Tablet] 1 tab PO DAILY 12/21/16 Cholecalciferol (Vitamin D3) [D3-2000] 2,000 unit PO DAILY 12/21/16 Esomeprazole Mag Trihydrate [Nexium] 40 mg PO DAILY 12/21/16 Famotidine [Pepcid AC] 20 mg PO QHS 12/21/16 Rizatriptan Benzoate [Maxalt] 10 mg PO PRN PRN 12/21/16 Topiramate [Topamax] 25 mg PO QHS 12/21/16 Dexamethasone [Decadron] 2 mg PO DAILY 11/10/17 Hydrochlorothiazide [Hctz] 25 mg PO DAILY 11/10/17 Multivitamins,Therapeutic [Multivitamin] 1 tablet PO DAILY 11/10/17 Potassium Chloride [Klor-Con M20] 20 meq PO BID 11/10/17 Dicyclomine HCl [Bentyl] 10 mg PO Q6H PRN PRN #30 cap 11/12/17 The following prescriptions were given: Dicyclomine HCl [Bentyl] 10 mg PO Q6H PRN PRN #30 cap PRN Reason: abdominal pain, cramps. Primary Care Physician: Gretchen Hurt MD [Primary Care Provider] - Please follow up with your Primary Care Physician in: 1 week. Please Follow Up With: Poncho Hoffman DO When: please call his office. Please Follow Up With: [facility] When: [phone]
--- NOTE | 2017-11-12 15:30 | PCM.DC.SUM ---
Discharge Date and Diagnosis Date of Admission: 11/10/17 Date of Discharge: 11/12/17 - Primary Discharge Diagnosis #1 syncopal episode, attributed to vasovagal syncope due to dehydration and acute diarrhea. 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 #3 hypokalemia/hyponatremia. #4 leukopenia/neutropenia/thrombocytopenia. - Secondary Discharge Diagnosis Chronic Problems GERD (gastroesophageal reflux disease) (Chronic) Migraine (Chronic) Breast cancer metastasized to bone (Chronic) Hospital Course and Treatment Operations: None Procedures: None Summary of Care Provided: This is a 67 years old female patient presented to the emergency room because of syncope, abdominal pain and cramps, weakness and diarrhea and she was found to have severe hypokalemia, hyponatremia, leukopenia, neutropenia and thrombocytopenia. #1 syncopal episode: Attributed to vasovagal syncope due to dehydration and low blood pressure. Treated with IV fluids for hydration and her blood pressure did improve. Repeat orthostatic vitals were negative for orthostatic hypotension. 2D echocardiogram revealed ejection fraction 75%, LV function is hyperdynamic. Patient discharged home in a stable medical condition, recommended to make sure that she hydrated herself, continued on her chronic home medication without any changes. 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 No stool sample sent for C. difficile or enteric pathogens because patient has no more diarrhea.Patient treated with IV fluids, IV antiemetics and Bentyl. On the day of discharge, started on Bentyl and did work and her abdominal pain and cramps improved and she was able to eat and tolerate regular diet. #4 hypokalemia/hyponatremia: Attributed to acute diarrhea in addition to HCTZ that she has been taking. Both potassium and sodium replaced and corrected appropriately. Serum phosphorus and magnesium are normal. #5 leukopenia/neutropenia/thrombocytopenia: Likely because of radiation therapy and breast cancer that metastasized to bone, thoracic spine. No evidence of bleeding, infection. Absolute neutrophil count is 1100 on the day of discharge. #6 metastatic breast cancer, with metastases to bone, stage IV: Completed radiation therapy, plan to start chemotherapy in the near future, she follows up with Dr. Hoffman as outpatient. Patient discharged home in a stable medical condition, discharged on Bentyl 10 mg every 6 as needed, continued on her chronic home medication without any changes including Decadron and potassium supplement, plan to follow-up with PCP in 1 week, order given to repeat CBC and BMP in 5 days, recommended follow-up with oncology according to the Dr. Hoffman. This note was generated with [employer] dictation software. It may contain incorrect words, spelling, and punctuation that were not noted in checking the note before signing. Discharge Activity: Return to Normal Activity Weight Bearing Status: Weight bearing as tolerated Call your doctor if you observe: Fever of 101 or Higher, Shortness of breath, Dizziness, Fainting spells, Chest pain, Increased palpitations (irregular heartbeat), Uncontrolled pain Home Medications: Medications to take at Discharge Calcium Carbonate/Vitamin D3 [Calcium 500-Vit D3 200 Tablet] 1 tab PO DAILY 12/21/16 Cholecalciferol (Vitamin D3) [D3-2000] 2,000 unit PO DAILY 12/21/16 Esomeprazole Mag Trihydrate [Nexium] 40 mg PO DAILY 12/21/16 Famotidine [Pepcid AC] 20 mg PO QHS 12/21/16 Rizatriptan Benzoate [Maxalt] 10 mg PO PRN PRN 12/21/16 Topiramate [Topamax] 25 mg PO QHS 12/21/16 Dexamethasone [Decadron] 2 mg PO DAILY 11/10/17 Hydrochlorothiazide [Hctz] 25 mg PO DAILY 11/10/17 Multivitamins,Therapeutic [Multivitamin] 1 tablet PO DAILY 11/10/17 Potassium Chloride [Klor-Con M20] 20 meq PO BID 11/10/17 Dicyclomine HCl [Bentyl] 10 mg PO Q6H PRN PRN #30 cap 11/12/17 Following Prescrptions Were Given to Patient: Dicyclomine HCl [Bentyl] 10 mg PO Q6H PRN PRN #30 cap PRN Reason: abdominal pain, cramps. Primary Care Physician: Gretchen Hurt MD [Primary Care Provider] - Please follow up with your Primary Care Physician in: 1 week. Please Follow Up With: Poncho Hoffman DO When: please call his office. [facility] When[facility] [phone] Disposition: Home with Home Health Minutes spent on discharge:: 32 Patient Condition:: Stable Medical Necessity - Tobacco Use Smoking Status: Never smoker Tobacco Use: Non-smoker Meaningful Use Info Meaningful Use Diagnoses (Choose all that apply): None applicable Code Visit Inpatient E&M: 83838 Disch Hosp
--- NOTE | 2017-11-12 15:35 | DS.PCM_ITS ---
Discharge Date and Diagnosis Date of Admission: 11/10/17 Date of Discharge: 11/12/17 - Primary Discharge Diagnosis #1 syncopal episode, attributed to vasovagal syncope due to dehydration and acute diarrhea. 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 #3 hypokalemia/hyponatremia. #4 leukopenia/neutropenia/thrombocytopenia. - Secondary Discharge Diagnosis Chronic Problems GERD (gastroesophageal reflux disease) (Chronic) Migraine (Chronic) Breast cancer metastasized to bone (Chronic) Hospital Course and Treatment Operations: None Procedures: None Summary of Care Provided: This is a 67 years old female patient presented to the emergency room because of syncope, abdominal pain and cramps, weakness and diarrhea and she was found to have severe hypokalemia, hyponatremia, leukopenia, neutropenia and thrombocytopenia. #1 syncopal episode: Attributed to vasovagal syncope due to dehydration and low blood pressure. Treated with IV fluids for hydration and her blood pressure did improve. Repeat orthostatic vitals were negative for orthostatic hypotension. 2D echocardiogram revealed ejection fraction 75%, LV function is hyperdynamic. Patient discharged home in a stable medical condition, recommended to make sure that she hydrated herself, continued on her chronic home medication without any changes. 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 No stool sample sent for C. difficile or enteric pathogens because patient has no more diarrhea.Patient treated with IV fluids, IV antiemetics and Bentyl. On the day of discharge, started on Bentyl and did work and her abdominal pain and cramps improved and she was able to eat and tolerate regular diet. #4 hypokalemia/hyponatremia: Attributed to acute diarrhea in addition to HCTZ that she has been taking. Both potassium and sodium replaced and corrected appropriately. Serum phosphorus and magnesium are normal. #5 leukopenia/neutropenia/thrombocytopenia: Likely because of radiation therapy and breast cancer that metastasized to bone, thoracic spine. No evidence of bleeding, infection. Absolute neutrophil count is 1100 on the day of discharge. #6 metastatic breast cancer, with metastases to bone, stage IV: Completed radiation therapy, plan to start chemotherapy in the near future, she follows up with Dr. Hoffman as outpatient. Patient discharged home in a stable medical condition, discharged on Bentyl 10 mg every 6 as needed, continued on her chronic home medication without any changes including Decadron and potassium supplement, plan to follow-up with PCP in 1 week, order given to repeat CBC and BMP in 5 days, recommended follow-up with oncology according to the Dr. Hoffman. This note was generated with [employer] dictation software. It may contain incorrect words, spelling, and punctuation that were not noted in checking the note before signing. Discharge Activity: Return to Normal Activity Weight Bearing Status: Weight bearing as tolerated Call your doctor if you observe: Fever of 101 or Higher, Shortness of breath, Dizziness, Fainting spells, Chest pain, Increased palpitations (irregular heartbeat), Uncontrolled pain Home Medications: Medications to take at Discharge Calcium Carbonate/Vitamin D3 [Calcium 500-Vit D3 200 Tablet] 1 tab PO DAILY Cholecalciferol (Vitamin D3) [D3-2000] 2,000 unit PO DAILY 12/21/16 Esomeprazole Mag Trihydrate [Nexium] 40 mg PO DAILY 12/21/16 Famotidine [Pepcid AC] 20 mg PO QHS 12/21/16 Rizatriptan Benzoate [Maxalt] 10 mg PO PRN PRN 12/21/16 Topiramate [Topamax] 25 mg PO QHS 12/21/16 Dexamethasone [Decadron] 2 mg PO DAILY 11/10/17 Hydrochlorothiazide [Hctz] 25 mg PO DAILY 11/10/17 Multivitamins,Therapeutic [Multivitamin] 1 tablet PO DAILY 11/10/17 Potassium Chloride [Klor-Con M20] 20 meq PO BID 11/10/17 Dicyclomine HCl [Bentyl] 10 mg PO Q6H PRN PRN #30 cap 11/12/17 Following Prescrptions Were Given to Patient: Dicyclomine HCl [Bentyl] 10 mg PO Q6H PRN PRN #30 cap PRN Reason: abdominal pain, cramps. Primary Care Physician: Gretchen Hurt MD [Primary Care Provider] - Please follow up with your Primary Care Physician in: 1 week. Please Follow Up With: Poncho Hoffman DO When: please call his office. [facility]: [phone] Disposition: Home with Home Health Minutes spent on discharge:: 32 Patient Condition:: Stable Medical Necessity - Tobacco Use Smoking Status: Never smoker Tobacco Use: Non-smoker Meaningful Use Info Meaningful Use Diagnoses (Choose all that apply): None applicable Code Visit Inpatient E&M: 36995 Disch Hosp
== END 2017-11-12 13:44 | disposition home health service (06) ==
LOC: ED 14:35 → MS3 15:27
PROVIDERS: Admitting Provider Internal Medicine; Emergency Provider Emergency Medicine; Family Provider Internal Medicine; PCP Internal Medicine; Visit Provider Hospitalist
DX: R55 Syncope and collapse (principal); E86.0 Dehydration; K21.9 Gastro-esophageal reflux disease without esophagitis; C50.919 Malignant neoplasm of unspecified site of unspecified female breast; C79.51 Secondary malignant neoplasm of bone; E87.6 Hypokalemia; E87.1 Hypo-osmolality and hyponatremia; G43.909 Migraine, unspecified, not intractable, without status migrainosus; R19.7 Diarrhea, unspecified; D69.6 Thrombocytopenia, unspecified; D70.9 Neutropenia, unspecified; D72.819 Decreased white blood cell count, unspecified; Z79.899 Other long term (current) drug therapy
CPT/HCPCS: 36415; 80048; 80053; 81001; 83735; 84100; 84484; 85025; 93005; 93306; 96361; 96372; 96374; 97110; 97162; 97165; 97802; 99218; 99284; J7030; G0378

== ENCOUNTER 2018-11-06 10:25 | Emergency (ER) | payer MEDICARE, OTHER, SELFPAY ==
[2018-11-06] VITALS (7 sets, daily range): BP systolic 140–176; BP diastolic 91–101; PULSE 94–118; RESP 16–27; TEMP 36.8; O2SAT 95–99; BMI 27.4
--- NOTE | 2018-11-06 10:48 | EKG12_ITS ---
Test Reason : SOB Blood Pressure : / mmHG Vent. Rate : 099 BPM Atrial Rate : 099 BPM P-R Int : 144 ms QRS Dur : 142 ms QT Int : 398 ms P-R-T Axes : 030 020 -02 degrees QTc Int : 510 ms Normal sinus rhythm Right bundle branch block Cannot rule out Inferior infarct , age undetermined Abnormal ECG Confirmed by EVA SHIN, TARIK ([id number]), editor managing newspaper FLORENTIN LEYVA ([id number]) on 11/09/2018 1:46:07 PM Referred By: VERA Confirmed By:TARIK VELASQUEZ MD
--- NOTE | 2018-11-06 10:48 | CT_ITS ---
STUDY: CTA CHEST REASON FOR EXAM: Female, 68 years old. Shortness of breath RADIATION DOSAGE (If Supplied By Facility): CTDIvol = ( 11.23 ) mGy, DLP = ( 348.27 ) mGycm TECHNIQUE: The examination was performed with the intravenous administration of 75CC IV Isovue 370. Post-processing of the angiographic images was performed, with multiplanar reformation and 3D reconstruction. Individualized dose optimization techniques were used for this CT. COMPARISON: None. FINDINGS: Normal enhancement of the main pulmonary artery and right and left pulmonary arteries. Normal enhancement of the bilateral peripheral pulmonary arteries. There is no demonstrated pulmonary embolism. Normal thoracic aorta and visualized great vessels. There is no demonstrated aortic dissection. Normal heart and pericardium. Mediastinal and left hilar calcifications. Normal visualized trachea and bronchi. The lungs are well expanded. Mild patchy groundglass densities are noted of the upper lobes. Mild bibasilar atelectasis. Moderate bilateral pleural effusions. Normal chest wall structures. Diffuse bony metastasis. Small hiatal hernia. CT/CTA Chest W/WO Contrast IMPRESSION: No demonstrated pulmonary embolism or arterial dissection. Moderate bilateral pleural effusions with mild basilar atelectasis. Mild patchy groundglass densities in the upper lobes. Small hiatal hernia. Diffuse bony metastasis. Electronically Signed: Iker Thompson DO at 12:38 EDT Tel [phone], Service support ,
--- NOTE | 2018-11-06 10:55 | ED.DCSUM_ITS ---
- ER Visit Summary Date of Service: 11/06/18 Chief Complaint: Shortness of breath History of Present Illness: The patient is a 68 F presents for shortness of breath for the last 2 days. Patient is short of breath at rest and it is worse with exertion. Patient has had a cough for 1 week and also has lightheadedness. She was seen at the urgent care 3 days ago, and a chest x-ray was read as negative for pneumonia but possible fluid around the lungs. 1 week ago she had ultrasounds of her lower extremities evaluate for DVT due to leg swelling. Patient is on a chemotherapy medication that Dr. Hoffman was concerned could be contributing to the extremity edema and she discontinued it 2 days ago. Patient is being treated for metastatic breast cancer. She is not on any blood thinners. She is currently on an antibiotic for the cough but does not know the name. No fever, chest pain, abdominal pain, nausea or vomiting or other complaints at this time. Physical Examination: Vital signs: afebrile, hemodynamically stable, 95% on nasal cannula 2 L General: well nourished, well developed, in mild distress Skin: warm, dry, no rash, no pallor HEENT: normocephalic and atraumatic; PERRL, EOMI, moist mucous membranes Cardiovascular: Tachycardic rate and rhythm without murmurs, mild nonpitting peripheral edema, 2+ pulses all distal extremities Respiratory: Mild increased work of breathing, lungs are clear to auscultation bilaterally, no rales, rhonchi or wheezing Abdominal: Abdomen is soft, nontender with normoactive bowel sounds, no guarding or rebound, no masses MSK: Moves all extremities, no deformities, normal strength Neuro: Awake and alert, oriented ?4. No facial droop, sensation and motor function intact and symmetric Test Results: Abnormal Lab Results 11/06/18 11/06/18 11/06/18 11:00 11:00 11:00 WBC 5.0 RBC 4.68 Hgb 12.9 Hct 37.1 MCV 79.3 L MCH 27.6 MCHC 34.8 RDW 14.3 RDW Differential 40.1 Plt Count 289 MPV 8.3 Immature Gran % (Auto) 0.200 Neut % (Auto) 68.0 Lymph % (Auto) 15.7 L [place] % (Auto) 9.1 Eos % (Auto) 6.8 H Baso % (Auto) 0.2 Absolute Neuts (auto) 3.4 Absolute Lymphs (auto) 0.79 L Total Counted Not Reportable PT 13.7 INR 1.1 APTT 38.2 H Sodium 134 L Potassium 3.1 L Chloride 99 Carbon Dioxide 25.0 Anion Gap 10 BUN 5 L Creatinine 0.67 Estim Creat Clear Calc 41.40 Est GFR (MDRD) Af Amer 112 Est GFR (MDRD) Non-Af 93 BUN/Creatinine Ratio 7.5 L Glucose 116 H Calcium 8.4 L Troponin I < 0.015 Clinical Impression(s) from Imaging Studies Chest CTA 11/06/18 10:48 IMPRESSION: No demonstrated pulmonary embolism or arterial dissection. Moderate bilateral pleural effusions with mild basilar atelectasis. Mild patchy groundglass densities in the upper lobes. Small hiatal hernia. Diffuse bony metastasis. Electronically Signed: Iker Thompson DO at 12:38 EDT Tel [phone], Service support , Medications Given Discontinued Medications Diphenhydramine HCl (Benadryl) 50 mg IV X1 ONE Stop: 11/06/18 10:50 Last Admin: 11/06/18 11:14 Dose: 50 mg Sodium Chloride () 500 mls @ 999 mls/hr IV .Q31M ONE Last Admin: 11/06/18 11:12 Dose: 999 mls/hr Methylprednisolone (Solu-Medrol) 125 mg IV X1 ONE Stop: 11/06/18 10:50 Last Admin: 11/06/18 11:12 Dose: 125 mg Emergency Department Course and Treatment: Patient's presentation with shortness of breath and metastatic cancer is concerning for possible pulmonary embolism. Patient developed a rash from contrast dye but has successfully tolerated it with pretreatment. Patient was given methylprednisolone and Benadryl as pretreatment for contrast. EKG showed a right bundle branch block, consistent with patient's prior EKGs. No leukocytosis. Labs were unremarkable. Troponin negative. CTA showed bilateral moderate-sized pleural effusions but no evidence of pulmonary embolism or dissection. Also no evidence of pneumonia. Patient had no adverse effects from the dye. Patient was discussed with Dr. Fernando, who stated patient could follow-up outpatient for further management of the pleural effusions. Patient was reevaluated and ambulated without becoming symptomatic. She did not have any significant acute desaturation during ambulation. Patient felt comfortable going home. She has an appointment in the morning with Dr. Hoffman already. She will keep this appointment and will return if any worsening of condition. Discharged home in no distress. Treatment Plan: [] Disposition: [] Impression: Dyspnea, bilateral pleural effusions, metastatic breast cancer This note was generated with [employer] dictation software. It may contain incorrect words, spelling, and punctuation that were not noted in review of the chart prior to signing ED Disposition - Plan for ED Patient: Disposition: Home or Assisted Living Instructions: ED Dyspnea Shortness of Breath, ED Effusion Pleural Referrals: Gretchen Hurt MD [Primary Care Provider] - Poncho Hoffman DO [STAFF PHYSICIAN] - 1 Day for another exam Additional Instructions: Please keep your appointment tomorrow morning with Dr. Hoffman. If at any time you have worsening shortness of breath or any other concerning symptoms, return immediately to the emergency department for another evaluation.
[2018-11-06 11:08] LABS: Absolute Lymphocyte Count 0.79 X10^3/ul (0.83-4.51); Absolute Neutrophil Count 3.4 X10^3/uL (2.0-7.7); Basophil# 0.01 X10^3/uL; Basophil% 0.2 % (0-1); Eosinophil# 0.34 X10^3/uL; Eosinophils% 6.8 % (0-5); Hematocrit 37.1 % (37-47); Hemoglobin 12.9 g/dl (12.0-15.0); Lymphocyte # 0.79 X10^3/ul (4.0); Lymphocyte % 15.7 % (19-41); Mean Corp Hgb Conc 34.8 g/gl (32-36); Mean Corpuscular Hgb 27.6 pg (27.0-32.0); Mean Corpuscular Volume 79.3 fL (81-99); Mean Platelet Vol. 8.3 fl (6.2-12.0); Monocyte# 0.46 X10^3/uL; Monocyte% 9.1 % (0-10); Neutrophil # 3.42 X10^3/uL (2.7-7.7); POSITIVE COUNT NO; POSITIVE DIFFERENTIAL NO; POSITIVE MORPHOLOGY NO; Platelet Count 289 K/mm3 (150-450); RBC Distribution Width CV 14.3 % (11.6-14.6); RBC Distribution Width SD 40.1 fl (35.1-43.9); Red Blood Count 4.68 M/mm3 (4.2-5.4)
[2018-11-06] MEDS: DiphenhydrAMINE 50 MG/ML Syringe IV (11:14)
[2018-11-06 11:31] LABS: Anion Gap 10 (5-15); BUN 5 mg/dL (7-18); BUN/Creat Ratio 7.5 RATIO (10-20); Calcium,Total 8.4 mg/dL (8.5-10.1); Chloride 99 mmol/L (98-107); Creatinine, Serum 0.67 mg/dL (0.55-1.02); EST Glomerular Filtration Rate 93 mL/min (>60); Est Glom Filt Rate - Afr Amer 112 mL/min (>60); Glucose 116 mg/dL (74-106); Potassium 3.1 mmol/L (3.5-5.1); Sodium Level 134 mmol/L (136-145)
[2018-11-06 11:57] LABS: International Normalized Ratio 1.1; Prothrombin Time (Protime)PT. 13.7 SECONDS (11.7-14.9)
[2018-11-06 11:58] LABS: Partial Thromboplast Time 38.2 Seconds (24.1-36.2)
--- NOTE | 2018-11-06 14:49 | ED.RN ---
pt tolerated ambulation with pulse ox. denies dizziness. steady gait.
== END 2018-11-06 14:51 | disposition home or self-care (01) ==
PROVIDERS: Emergency Provider Emergency Medicine; Family Provider Internal Medicine; PCP Internal Medicine
DX: J90 Pleural effusion, not elsewhere classified (principal); R06.00 Dyspnea, unspecified; C50.919 Malignant neoplasm of unspecified site of unspecified female breast; C79.51 Secondary malignant neoplasm of bone; R42 Dizziness and giddiness; R60.0 Localized edema; K44.9 Diaphragmatic hernia without obstruction or gangrene; J98.11 Atelectasis; I45.10 Unspecified right bundle-branch block; Z79.899 Other long term (current) drug therapy; R06.02 Shortness of breath
CPT/HCPCS: 71275; 80048; 84484; 85025; 85610; 85730; 93005; 96361; 96374; 96375; 99284; J7030; J7040; Q9967; A4216

== ENCOUNTER 2019-02-14 11:43 | Inpatient (IN) | payer MEDICARE, OTHER, SELFPAY ==
[2018-11-06 10:26] VITALS: BMI 27.4
[2019-02-14] VITALS (10 sets, daily range): BP systolic 113–139; BP diastolic 65–102; PULSE 91–115; RESP 16–20; TEMP 36.6–37.1; O2SAT 92–99; BMI 27.2; BMI 26.9
--- NOTE | 2019-02-14 12:05 | EKG12_ITS ---
Test Reason : SOB Blood Pressure : / mmHG Vent. Rate : 103 BPM Atrial Rate : 103 BPM P-R Int : 118 ms QRS Dur : 134 ms QT Int : 390 ms P-R-T Axes : 033 007 -20 degrees QTc Int : 510 ms Sinus tachycardia Right bundle branch block T wave abnormality, consider inferior ischemia Abnormal ECG Confirmed by LOWELL RUTH ([id number]), video effects editor JAMESON VALENCIA ([id number]) on 02/20/2019 2:20:54 PM Referred By: Angelique Lezama Confirmed By:LOWELL RUTH
[2019-02-14 13:12] LABS: Absolute Lymphocyte Count 1.82 X10^3/uL (0.83-4.51); Absolute Neutrophil Count 16.2 X10^3/uL (2.0-7.7); Basophil# 0.15 X10^3/uL; Basophil% 0.7 % (0-1); Eosinophil# 0.05 X10^3/uL; Eosinophils% 0.2 % (0-5); Hematocrit 33.5 % (37-47); Hemoglobin 10.9 g/dL (12.0-15.0); Lymphocyte # 1.82 X10^3/ul (4.0); Lymphocyte % 8.4 % (19-41); Mean Corp Hgb Conc 32.5 g/dL (32-36); Mean Corpuscular Hgb 32.7 pg (27.0-32.0); Mean Corpuscular Volume 100.6 fL (81-99); Mean Platelet Vol. 10.8 fl (6.2-12.0); Monocyte# 2.48 X10^3/uL; Monocyte% 11.4 % (0-10); Neutrophil # 16.24 X10^3/uL (2.7-7.7); Neutrophil % 75.1 % (47-70); POSITIVE COUNT YES; POSITIVE DIFFERENTIAL YES; POSITIVE MORPHOLOGY YES; Platelet Count 73 K/mm3 (150-450); RBC Distribution Width CV 25.4 % (11.6-14.6); RBC Distribution Width SD 92.1 fl (35.1-43.9); Red Blood Count 3.33 M/mm3 (4.2-5.4); White Blood Count 21.7 K/mm3 (4.4-11.0)
[2019-02-14 13:13] LABS: NRBC Flagged by Analyzer 5.9 % (0-5)
[2019-02-14 13:14] LABS: Differential Indicated SCAN CRITERIA MET
--- NOTE | 2019-02-14 13:25 | RAD_ITS ---
STUDY: X-RAY CHEST REASON FOR EXAM: Female, 68 years old. Metastatic breast cancer TECHNIQUE: PA and lateral views of the chest. COMPARISON: CT scan of 11/06/2018 FINDINGS: New mild to moderate left and small right pleural effusion. There is new focus of linear atelectasis in the left midlung. Mild to moderate left and mild right subsegmental atelectasis versus infiltrate in the lung bases. Course interstitial prominence which may be due to chronic changes. Heart size is prominent. There are diffuse degenerative changes of the visualized thoracic spine. Scattered foci of metastatic osseous lesions. There is no demonstrated abnormality of the visualized soft tissue structures of the upper abdomen. RAD/Chest PA and Lateral IMPRESSION: New mild to moderate left and small right pleural effusion. There is new focus of linear atelectasis in the left midlung. Mild to moderate left and mild right subsegmental atelectasis versus infiltrate in the lung bases. Course interstitial prominence which may be due to chronic changes. Scattered foci of metastatic osseous lesions. Electronically Signed: Eric Mcgrath MD at 13:43 EDT Tel [phone], Service support ,
[2019-02-14 13:28] LABS: Anion Gap 7 (5-15); BUN 16 mg/dL (7-18); BUN/Creat Ratio 23.5 RATIO (10-20); Calcium,Total 8.9 mg/dL (8.5-10.1); Chloride 107 mmol/L (98-107); Creatinine, Serum 0.68 mg/dL (0.55-1.02); EST Glomerular Filtration Rate 91 mL/min (>60); Est Glom Filt Rate - Afr Amer 110 mL/min (>60); Glucose 98 mg/dL (74-106); Potassium 3.4 mmol/L (3.5-5.1); Sodium Level 139 mmol/L (136-145)
[2019-02-14 13:40] LABS: Anisocytosis 2+; Polychromasia 1+
[2019-02-14 13:41] LABS: BNP,B-Type NATRIURETIC PEPTIDE 73.1 pg/mL (0-100); Platelet Estimate MOD DEC (ADEQ)
[2019-02-14] MEDS: Ceftriaxone 1 GM/50 ML BAG IV (14:15)
--- NOTE | 2019-02-14 14:19 | NURSING ---
DR DUMONT FOR DR CHAMBERS
--- NOTE | 2019-02-14 14:26 | PCM.HP.STD ---
Problem List (1) Dyspnea Status: Acute Qualifiers: Dyspnea type: unspecified Qualified Code(s): R06.00 - Dyspnea, unspecified (2) GERD (gastroesophageal reflux disease) Status: Chronic Qualifiers: Esophagitis presence: esophagitis presence not specified Qualified Code(s): K21.9 - Gastro-esophageal reflux disease without esophagitis (3) Migraine Status: Chronic Qualifiers: Migraine type: unspecified Intractability: not intractable (4) Breast cancer metastasized to bone Status: Chronic Qualifiers: Laterality: right Qualified Code(s): C50.911 - Malignant neoplasm of unspecified site of right female breast; C79.51 - Secondary malignant neoplasm of bone (5) Hypokalemia Status: Acute History of Present Illness Date of Admission: 02/14/19 Chief Complaint: Progressive SOB on going for months The patient is a 68 year old F with past medical history of metastatic breast CA, ER positive, on taxol chemotherapy, status post palliative radiation therapy, follows with Dr. Hoffman, in the outpatient who comes in with progressive shortness of breath. Patient was sent from 's office with progressive shortness of breath. Patient is currently on Taxol therapy. (See Dr. Hoffman's office note in chart). She complains of having shortness of breath ongoing for more than 3 months. Over the last 1 to 2 weeks she has been extra fatigued and very short of breath with minimal exertion. She denied any chest pain. She has minimal cough which is unproductive. She denied any fever. She was empirically treated with antibiotics 1 week prior to her admission. Work-up in the outpatient has suggested no PE but showed bilateral pleural effusion. Patient has been on Lasix which was recently increased. She also recently completed a brief prednisone taper for potential pneumonitis induced by Everolimus. The prednisone treatment was tapered due to severe acid reflux. She was sent here from the oncology office for possible thoracocentesis. In the ED, her vitals was temp 97.8F, HR 115, RR 20, BP 130/87, Spo2 86% on room air. Her blood work showed WBC count of 21.7, down from 23.3 in the outpatient, neutrophilia present, hemoglobin 10.9, platelet count was 73, Na 139, potassium 3.4, chloride 107, bicarbonate 25, BUN 16, creatinine 0.68, calcium was 1.5, troponin was 0.015, BNP 73.1 Chest x-ray showed new mild to moderate left and small right pleural effusion, new focus of linear atelectasis in the left midlung, mild to moderate left and mild right subsegmental atelectasis versus infiltrate, diffuse degenerative changes of the thoracic spine with scattered foci of metastatic osseous lesions. Past Medical History Past Medical History (Chronic Problems): Chronic Problems GERD (gastroesophageal reflux disease) (Chronic) Migraine (Chronic) Breast cancer metastasized to bone (Chronic) Allergies alcohol Allergy (Verified 02/14/19 11:47) Rash codeine Allergy (Verified 02/14/19 11:47) Other doxycycline Allergy (Verified 02/14/19 11:47) Swelling levofloxacin [From Levaquin] Allergy (Verified 02/14/19 11:47) Rash Penicillins Allergy (Verified 02/14/19 11:47) Rash clarithromycin [From Biaxin] Adverse Reaction (Verified 02/14/19 11:47) Other erythromycin base Adverse Reaction (Verified 02/14/19 11:47) Upset Stomach Home Medications: Ambulatory Orders Medication Instructions Recorded Cholecalciferol (Vitamin D3) 2,000 unit PO DAILY 12/21/16 [D3-2000] Esomeprazole Mag Trihydrate 40 mg PO DAILY 12/21/16 [Nexium] Topiramate [Topamax] 25 mg PO QHS 12/21/16 Multivitamins,Therapeutic 1 tablet PO DAILY 11/10/17 [Multivitamin] Rizatriptan Benzoate [Maxalt] 10 mg PO DAILY PRN PRN 11/06/18 traMADol [Ultram (G)] 50 mg PO Q6H PRN PRN 11/06/18 Famotidine [Pepcid AC] 20 mg PO QHS 02/14/19 Furosemide [Lasix] 20 mg PO BID 02/14/19 Losartan Potassium [Cozaar] 25 mg PO DAILY 02/14/19 Surgical History: hysterectomy, total knee arthroplasty - Bilateral knee replacement, tonsillectomy, - - R breast lumpectomy, status post tubal ligation, Psychiatric History: No pertinent psych hx Lives: Spouse/ Significant Other Smoking Status: Never smoker Tobacco Use: Non-smoker Alcohol: None Drugs: None - *Family History Paternal History Items: No pertinent history Maternal History Items: Cancer - Breast cancer, Diabetes Sibling History Items: Cancer - Breast cancer Review of Systems Constitutional: Reports: Weakness, Fatigue. Denies: Anorexia, Chills, Fever, Malaise, Weight Change Eyes: Denies: Blurred vision, Cataracts, Conjunctivae Inflammation, Double vision, Pain, Redness, Vision Change HEENT: Denies: Difficulty Hearing, Difficulty Swallowing, Head Aches, Hearing Changes, Sinus Congestion, Sinus Drainage Cardiovascular: Denies: Chest Pain, Claudication, Orthopnea, Palpitations, Paroxysmal Noc. Dyspnea Respiratory: Reports: Cough, Shortness of Breath, Shortness of breath at rest, Shortness of breath upon exertion. Denies: Sputum production Gastrointestinal: Denies: Abdominal Pain, Constipation - Occasional, Hematemesis, Nausea, Vomiting Genitourinary: Denies: Dysuria Musculoskeletal: Denies: Joint Pain, Joint stiffness, Joint swelling, Joint Tenderness Skin: Denies: Rash, Wounds Neurological: Denies: Numbness, Tingling, Focal weakness Psychiatric: Denies: Anxiety, Depression, Homicidal Ideations, Suicidal Ideations Hematologic/ Lymphatic: Denies: Easy Bruising, Easy Bleeding VTE Information - Inpt Only VTE Present on Admission: No VTE Pharm Prophylaxis ordered?: Yes Patient Problems: Active and Suspected Problems Dyspnea (Acute) - Physical Exam General: Alert, Oriented x3, Cooperative, No apparent distress, - - on 2L oxygen HEENT: Atraumatic, PERRLA, EOMI, Normocephalic, - - chemotherapy related alopecia Oral: Moist Mucosa Neck: Supple Lungs: Clear to auscultation, Normal air movement Cardiovascular: Regular rate, Regular Rhythm, Normal S1, Normal S2, No murmurs Abdomen: Bowel Sounds Present, Soft, Non Tender, Non-Distended, No Hepato-splenomegaly Extremities: Edema - Trace bilateral edema Skin: No rashes, No breakdown Musculoskeletal: No Tenderness to Palpation of Joints or Extremities Lymphatic: No Cervical, Supraclavicular, or Inguinal Adenopathy Neurological: Cranial nerves II-XII grossly intact, Neuro grossly intact Psych/Mental Status: Normal Affect, Appropriate Vital Signs Temp Pulse Resp BP Pulse Ox 97.9 F 101 H 18 139/86 H 96 02/14/19 12:05 02/14/19 12:05 02/14/19 12:05 02/14/19 12:05 02/14/19 12:05 Oxygen Delivery Method Room Air Weight: 67.585 kg Body Mass Index (BMI) 27.2 Laboratory Tests Past 24 Hrs 02/14/19 02/14/19 02/14/19 13:00 13:00 13:00 WBC 21.7 H RBC 3.33 L Hgb 10.9 L Hct 33.5 L MCV 100.6 H MCH 32.7 H MCHC 32.5 RDW Std Deviation 92.1 H RDW Coeff of Gus 25.4 H Plt Count 73 L MPV 10.8 Immature Gran % (Auto) 4.200 H Neut % (Auto) 75.1 H Lymph % (Auto) 8.4 L [place] % (Auto) 11.4 H Eos % (Auto) 0.2 Baso % (Auto) 0.7 Absolute Neuts (auto) 16.2 H Absolute Lymphs (auto) 1.82 Nucleated RBC % 5.9 H Diff Path Review May foll Platelet Estimate MOD DEC Polychromasia 1+ Anisocytosis 2+ Sodium 139 Potassium 3.4 L Chloride 107 Carbon Dioxide 25.0 Anion Gap 7 BUN 16 Creatinine 0.68 Estim Creat Clear Calc 41.40 Est GFR (MDRD) Af Amer 110 Est GFR (MDRD) Non-Af 91 BUN/Creatinine Ratio 23.5 H Glucose 98 Lactic Acid Calcium 8.9 Troponin I < 0.015 B-Natriuretic Peptide 73.1 02/14/19 13:50 WBC RBC Hgb Hct MCV MCH MCHC RDW Std Deviation RDW Coeff of Gus Plt Count MPV Immature Gran % (Auto) Neut % (Auto) Lymph % (Auto) [place] % (Auto) Eos % (Auto) Baso % (Auto) Absolute Neuts (auto) Absolute Lymphs (auto) Nucleated RBC % Diff Path Review Platelet Estimate Polychromasia Anisocytosis Sodium Potassium Chloride Carbon Dioxide Anion Gap BUN Creatinine Estim Creat Clear Calc Est GFR (MDRD) Af Amer Est GFR (MDRD) Non-Af BUN/Creatinine Ratio Glucose Lactic Acid Pending Calcium Troponin I B-Natriuretic Peptide Assessment/Plan All Active Problems Hypokalemia (Acute) Acute diarrhea (Acute) Generalized weakness (Acute) Dyspnea (Acute) 68 year old F with past medical history of metastatic breast CA, ER positive, on taxol chemotherapy, status post palliative radiation therapy, follows with Dr. Hoffman, in the outpatient who comes in with progressive shortness of breath 1. Dyspnea likely related to probable CAP vs atelectasis vs bilateral pleural effusions vs cardiomyopathy, chronic, progressively getting worse over last 2 weeks. Patient is currently saturating well on 2L oxygen. Previous 2D echo showed EF of 75%. Plan: Admit to PCU, monitor on telemetry, continue on oxygen therapy, encourage use of incentive spirometer and PEEP, wean off for SPO2 more than 94% Pulmonology consult, ultrasound-guided thoracocentesis with diagnostic labs, 2d-CHO 2. Probable sepsis secondary to CAP, has elevated heart rate, WBC count of 21.7, possible source of infection - Pneumonia. Although her white cell count seems to be coming down compared to labs in the outpatient. Patient reportedly also recently completed a short course of steroid and empiric antibiotics No fevers reported by patient. However in the light of patient's immunocompromise state, and persistence of symptoms, will continue treatment for community-acquired pneumonia with IV ceftriaxone and azithromycin, blood cultures are pending, will check urine legionella and streptococcal antigen. Continue to encourage use of incentive spirometer. 3. Hypokalemia, K 3.4, replace, recheck in a.m. 4. Thrombocytopenia, plt count is 76, likely chemotherapy related, will hold off use of heparin products for DVT prophylaxis 5. Metastatic breast CA, ER positive, on Taxol chemotherapy, status post palliative radiation, follows with oncology in the outpatient 6. Hypertension, controlled, continue on losartan, continue to monitor vitals 7. DVT PPx-SCDs, on account of thrombocytopenia. 8. Code Status: Discussed in detail with the patient explaining the various types of CODE STATUS-full code, DNR CCA, DNR CC. Her who is the POA was present. Patient states she is sure she wants to be a DNR. At thisw point, she is not uncertain if she will be a CCA or CC. She will discuss with her further and let the team know. All other questions were answered. Time spent discussing CODE STATUS 17 minutes Code Visit Inpatient E&M: 44846 Init Hosp L3 Procedures: 59679 Advncd Care Plan 30 Min
[2019-02-14 14:29] LABS: Lactic Acid 1.5 mmol/L (0.4-2.0)
--- NOTE | 2019-02-14 14:29 | NURSING ---
PCU SEPSIS, CAP PAINTSIL
--- NOTE | 2019-02-14 14:31 | ED.VISSUMM ---
- ER Visit Summary Date of Service: 02/14/19 Chief Complaint: [Shortness of breath] History of Present Illness: The patient is a 68 F [presents with shortness of breath started 2 weeks ago. Patient has had a cough but mostly nonproductive. She denies any fever. Denies any chest pain. Patient's last chemotherapy was 4 weeks ago and she is currently being treated for metastatic breast cancer. Patient several weeks ago was believed to have pneumonitis related to her p.o. chemotherapy regimen that seem to respond to prednisone. Patient recently had a CTA of the chest to rule out PE within the last 2 weeks that was negative for PE but did show some small bilateral pleural effusions. Patient complains of exertional dyspnea and dyspnea at rest at times.] Physical Examination: [HEENT-PERRLA, EOMI. Cranial nerves II through XII grossly intact. TMs clear. Mucous membranes moist. No adenopathy. Cardiovascular-regular rate and rhythm without murmur or ectopy Lungs-diminished in the bases bilaterally with rales in both bases. No accessory muscle use or retractions. No conversational dyspnea. Abdomen-normoactive bowel sounds, soft, nontender, no rebound or rigidity, no peritoneal signs. Extremities-intact ?4, normal range of motion, normal pulses, atraumatic] Test Results: [EKG obtained arrival shows sinus tachycardia with a ventricular rate of [address] changes and a right bundle branch block. CBC with differential and awaken at 21.7, hemoglobin 11, hematocrit 33, platelets 73. Chemistries unremarkable. Troponin is less than 0.015. BNP was 73. Chest x-ray was obtained and showed small bilateral effusions with possible bibasilar infiltrates.] Emergency Department Course and Treatment: [She was started on Rocephin and Zithromax. Patient had blood cultures ordered.] Treatment Plan: [Patient will be admitted as with ambulation in the department her O2 sat dropped to 87 to 88% on room air.] Disposition: [Admit] Impression: Pneumonia Hypoxemia ] This note was generated with [employer] dictation software. It may contain incorrect words, spelling, and punctuation that were not noted in review of the chart prior to signing ED Disposition - Plan for ED Patient: Referrals: Gretchen Hurt MD [Primary Care Provider] -
[2019-02-14] MEDS: 0.9% Normal Saline 1,000 ML 15 ML IV (14:42)
--- NOTE | 2019-02-14 15:33 | ECHOD_ITS ---
Reason For Study: Dyspnea/SOB Procedure This was a 2D Doppler, Color Flow transthoracic echocardiogram. Myocardial strain analysis was performed in this exam to aid in the assessment of cardiac function. Exam performed portable in patient room. Left Ventricle Normal size and thickness. The estimated ejection fraction is 75 %. Stage 1 diastolic dysfunction. The global longitudinal strain = -20.9 % (normal). No regional wall motion abnormalities noted. Right Ventricle Normal size and thickness. Normal systolic function. Atria Normal left atrium. Normal right atrium. Normal atrial septum. Mitral Valve The mitral valve is structurally normal. No prolapse or stenosis seen. Tricuspid Valve Normal tricuspid valve. Unable to estimate RV systolic pressure due to insufficient tricuspid regurgitant envelope. Aortic Valve Normal aortic valve. Trisinus/trileaflet aortic valve. Pulmonic Valve Normal pulmonic valve. Great Vessels Normal aortic root. Normal arch. Normal inferior vena cava. Inferior vena cava collapse with sniff. Pericardium/Pleural No pericardial effusion. MMode/2D Measurements & Calculations LVIDd: 4.1 cm IVSd: 0.92 cm LA dimension: 3.5 cm LVIDs: 1.9 cm LVPWd: 1.0 cm RVDd: 2.9 cm FS: 54.8 % LAV(MOD-bp): 38.7 ml LA A4 area: 15.3 cm2 RA A4 area: 11.1 cm2 LAV(MOD-bp) Indexed: 23.0 ml/m2 LAV(MOD-sp2): 35.8 ml LAV(MOD-sp4): 39.9 ml Time Measurements MV dec time: 0.19 sec Doppler Measurements & Calculations MV E max jerry: 66.3 cm/sec Lat Peak E' Jerry: 14.8 cm/sec Med Peak E' Jerry: 7.9 cm/sec MV A max jerry: 100.8 cm/sec E/E' lat: 4.5 E/E' med: 8.4 MV E/A: 0.66 MV V2 max: 113.9 cm/sec MV P1/2t max jerry: 90.6 cm/sec Ao V2 max: 165.5 cm/sec MV max P.2 mmHg MV P1/2t: 69.3 msec Ao max P.0 mmHg MV V2 mean: 65.5 cm/sec MV dec slope: 383.1 cm/sec2 Ao V2 mean: 105.1 cm/sec MV mean P.0 mmHg MVA(P1/2t): 3.2 cm2 Ao mean P.2 mmHg MV V2 VTI: 23.9 cm Ao V2 VTI: 28.8 cm LV V1 max: 137.0 cm/sec PA V2 max: 104.2 cm/sec LV V1 max P.5 mmHg LV V1 mean P.0 mmHg LV V1 mean: 78.1 cm/sec LV V1 VTI: 22.0 cm Interpretation Summary The estimated ejection fraction is 75 %. Stage 1 diastolic dysfunction. Unable to estimate RV systolic pressure due to insufficient tricuspid regurgitant envelope. The global longitudinal strain = -20.9 % (normal). Compared to echo report dated 11/11/2017, no appreciable changes noted. Ordering Physician: Angelique Lezama Referring Physician: Gretchen Hurt Performed By: Vinnie Gavin RCS
[2019-02-14] MEDS: 0.9% Normal Saline 1,000 ML 100 ML IV (16:38)
[2019-02-14] MEDS: Ondansetron 4 MG/2 ML Vial IV (17:18)
[2019-02-14] MEDS: Potassium Chloride 10mEq/100mL 10 MEQ/100 ML IV.SOLN. 100 MEQ IV BOLUS ×2 (18:32→19:20)
[2019-02-14] MEDS: Topiramate 25 MG Tablet PO (21:26)
[2019-02-14] MEDS: Famotidine 20 MG Tablet PO (21:26)
[2019-02-14] MEDS: traMADol 50 MG Tablet PO (22:56)
[2019-02-15] VITALS (14 sets, daily range): BP systolic 102–134; BP diastolic 52–77; PULSE 99–110; RESP 16–18; TEMP 36.5–36.9; O2SAT 91–95
[2019-02-15] MEDS: 0.9% Normal Saline 1,000 ML 100 ML IV (02:35)
[2019-02-15 06:22] LABS: Absolute Lymphocyte Count 1.51 X10^3/uL (0.83-4.51); Absolute Neutrophil Count 13.2 X10^3/uL (2.0-7.7); Basophil# 0.12 X10^3/uL; Basophil% 0.7 % (0-1); Eosinophil# 0.16 X10^3/uL; Eosinophils% 0.9 % (0-5); Hematocrit 27.6 % (37-47); Hemoglobin 8.9 g/dL (12.0-15.0); International Normalized Ratio 1.6; Lymphocyte # 1.51 X10^3/ul (4.0); Lymphocyte % 8.2 % (19-41); Mean Corp Hgb Conc 32.2 g/dL (32-36); Mean Corpuscular Hgb 33.6 pg (27.0-32.0); Mean Corpuscular Volume 104.2 fL (81-99); Mean Platelet Vol. 12.2 fl (6.2-12.0); Monocyte# 2.62 X10^3/uL; Monocyte% 14.2 % (0-10); Neutrophil # 13.15 X10^3/uL (2.7-7.7); Neutrophil % 71.3 % (47-70); POSITIVE COUNT YES; POSITIVE DIFFERENTIAL YES; POSITIVE MORPHOLOGY YES; Platelet Count 60 K/mm3 (150-450); Prothrombin Time (Protime)PT. 18.5 SECONDS (11.7-14.9); RBC Distribution Width CV 25.4 % (11.6-14.6); RBC Distribution Width SD 94.3 fl (35.1-43.9); Red Blood Count 2.65 M/mm3 (4.2-5.4); White Blood Count 18.4 K/mm3 (4.4-11.0)
[2019-02-15 06:23] LABS: Partial Thromboplast Time 50.6 Seconds (24.1-36.2)
[2019-02-15 06:39] LABS: AST(SGOT) 145 U/L (15-37); Alanine Aminotransfer ALT/SGPT 71 U/L (13-56); Albumin, Serum 2.1 g/dL (3.2-5.0); Alkaline Phosphatase 264 U/L (45-117); Anion Gap 7 (5-15); BUN 13 mg/dL (7-18); BUN/Creat Ratio 23.5 RATIO (10-20); Calcium,Total 8.1 mg/dL (8.5-10.1); Chloride 110 mmol/L (98-107); Creatinine, Serum 0.55 mg/dL (0.55-1.02); EST Glomerular Filtration Rate 115 mL/min (>60); Est Glom Filt Rate - Afr Amer 140 mL/min (>60); Globulin 2.2 g/dL (2.2-4.2); Glucose 82 mg/dL (74-106); LDH 363 U/L (84-246); Potassium 3.8 mmol/L (3.5-5.1); Protein, Total 4.3 g/dL (6.4-8.2); Sodium Level 141 mmol/L (136-145)
[2019-02-15 06:44] LABS: NRBC Flagged by Analyzer 6.4 % (0-5)
[2019-02-15 06:45] LABS: Differential Indicated SCAN CRITERIA MET
[2019-02-15 06:50] LABS: Macrocytosis 3+; Platelet Estimate MOD DEC (ADEQ); Polychromasia 1+
[2019-02-15 06:51] LABS: Differential Comment SCANNED
[2019-02-15] MEDS: Multivitamins,Therapeutic Tablet 1 TABLET PO (08:32)
[2019-02-15] MEDS: Ceftriaxone 1 GM/50 ML BAG IV (09:46)
--- NOTE | 2019-02-15 09:50 | CON.PCM_ITS ---
Problem List (1) Pleural effusion Status: Acute (2) GERD (gastroesophageal reflux disease) Status: Chronic Qualifiers: Esophagitis presence: esophagitis presence not specified Qualified Code(s): K21.9 - Gastro-esophageal reflux disease without esophagitis (3) Migraine Status: Chronic Qualifiers: Migraine type: unspecified Intractability: not intractable (4) Breast cancer metastasized to bone Status: Chronic Qualifiers: Laterality: right Qualified Code(s): C50.911 - Malignant neoplasm of unspecified site of right female breast; C79.51 - Secondary malignant neoplasm of bone (5) Hypokalemia Status: Acute (6) Acute diarrhea Status: Acute (7) Generalized weakness Status: Acute (8) Dyspnea Status: Acute Qualifiers: Dyspnea type: unspecified Qualified Code(s): R06.00 - Dyspnea, unspecified Reason for Consult Date of Consultation: 02/15/19 Reason for Consultation: Pleural effusion History of Present Illness: The patient is a 68 year old F, with past medical history listed below, who presented [facility] on 02/14/2019 secondary to progressive shortness of breath. Patient reportedly has had a protracted course of approximately 2 to 4 weeks. Patient does have metastatic breast cancer and is being followed by Dr. Hoffman. Patient reportedly had had some pneumonitis related to some p.o. chemo 2 to 4 weeks ago. Patient was placed on prednisone therapy with significant improvement, but developed significant GERD symptoms and was unable to continue. Patient did have a CTA of the chest at [facility] 2 weeks ago that was reportedly negative for PE, but did show bilateral pleural effusions. Patient states that over the course the last 2 weeks patient has had worsening dyspnea on exertion and even dyspnea at rest at times. Patient does have a cough that is nonproductive in nature. Patient does report that deep inhalation leads to more cough. In the ER, patient was noted to have tachycardia at 103 bpm and an elevated leukocytosis of 21.7. Platelets were low at 73, but no bleeding was reported. Chest x-ray did show bilateral pleural effusions. Patient was initiated on empiric antibiotics and admitted to the hospital for evaluation. Since admission to the hospital, patient reports she is subjectively unchanged compared to previous. Patient has been doing well on room air at rest. Patient states that she is never had a pleural effusion previously. Patient has never had a thoracentesis. Did discuss with Dr. Hoffman at the bedside to confirm recent history. Patient denies any history of smoking or illicit drug use. Patient does report occasional alcohol intake. Patient denies any exposure to asbestos or TB. Patient did have a bird for a brief period in the past. Patient states that she has had an albuterol inhaler before and pulmonary function test, but she is unaware of the results. Patient reportedly has had significant lower extremity edema. Patient estimates that she has been on Lasix therapy for approximately 3 weeks with some improvement in lower extremity edema. Did review CODE STATUS with patient. Patient states I want to get another 10 years and is willing to do whatever is necessary. Patient will be made a full code. Past Medical History Past Medical History (Chronic Problems): Chronic Problems GERD (gastroesophageal reflux disease) (Chronic) Migraine (Chronic) Breast cancer metastasized to bone (Chronic) Allergies alcohol Allergy (Verified 02/14/19 15:39) Rash--alcohol wipes doxycycline Allergy (Verified 02/14/19 15:07) Angioedema levofloxacin [From Levaquin] Allergy (Verified 02/14/19 11:47) Rash Penicillins Allergy (Verified 02/14/19 11:47) Rash clarithromycin [From Biaxin] Adverse Reaction (Verified 02/14/19 15:39) stomach pains codeine Adverse Reaction (Verified 02/14/19 15:39) Upset Stomach erythromycin base Adverse Reaction (Verified 02/14/19 11:47) Upset Stomach Home Medications: Ambulatory Orders Medication Instructions Recorded Cholecalciferol (Vitamin D3) 2,000 unit PO DAILY 12/21/16 [D3-2000] Esomeprazole Mag Trihydrate 40 mg PO DAILY 12/21/16 [Nexium] Topiramate [Topamax] 25 mg PO QHS 12/21/16 Multivitamins,Therapeutic 1 tablet PO DAILY 11/10/17 [Multivitamin] Rizatriptan Benzoate [Maxalt] 10 mg PO DAILY PRN PRN 11/06/18 traMADol [Ultram (G)] 50 mg PO Q6H PRN PRN 11/06/18 Famotidine [Pepcid AC] 20 mg PO QHS 02/14/19 Furosemide [Lasix] 20 mg PO BID 02/14/19 Losartan Potassium [Cozaar] 25 mg PO DAILY 08/20/19 Surgical History: hysterectomy, total knee arthroplasty - Bilateral knee replacement, tonsillectomy, - - R breast lumpectomy, status post tubal ligation, Psychiatric History: No pertinent psych hx Lives: Spouse/ Significant Other Smoking Status: Never smoker Tobacco Use: Non-smoker Alcohol: None Drugs: None - *Family History Paternal History Items: No pertinent history Maternal History Items: Cancer - Breast cancer, Diabetes Sibling History Items: Cancer - Breast cancer Review of Systems Comment: See HPI, otherwise negative x10 systems. Patient Problems: Active and Suspected Problems Dyspnea (Acute) Pleural effusion (Acute) Objective: Chest x-ray was personally reviewed and does show bilateral pleural effusions, left greater than right. CT scan mentioned in HPI was not available for personal review. - Physical Exam General: Alert, Oriented x3, Cooperative, No apparent distress, Well developed, Well nourished, - - Alopecia. Appears stated age. No conversational dyspnea. HEENT: Atraumatic, PERRLA, EOMI, Normocephalic, - - Slightly pale conjunctiva. Oral: Moist Mucosa, No Gingival or Mucosal Lesions/ Ulcerations Neck: Supple, No JVD, No Nodes, Trachea Midline Lungs: No rhonchi, No wheeze, Diminished - Left greater than right base, Rales - Left base, - - Dullness to percussion on the left base Cardiovascular: Regular rate, Regular Rhythm, Normal S1, Normal S2, No murmurs, No rub noted, No Gallop Abdomen: Bowel Sounds Present, Soft, Non Tender, Non-Distended Extremities: No clubbing, No cyanosis, Edema - Left greater than right lower extremity Skin: No rashes, No breakdown Musculoskeletal: No Tenderness to Palpation of Joints or Extremities Lymphatic: No Cervical, Supraclavicular, or Inguinal Adenopathy Neurological: Cranial nerves II-XII grossly intact, Neuro grossly intact, Motor Exam 5/5 strength throughout Psych/Mental Status: Alert and oriented to time, place, person, mood and affect Vital Signs Temp Pulse Resp BP Pulse Ox 36.9 C 99 18 102/52 L 94 02/15/19 03:25 02/15/19 07:53 02/15/19 03:25 02/15/19 03:25 02/15/19 07:46 Oxygen Flow Rate (L/min) 2 Oxygen Delivery Method Room Air Weight: 68.4 kg Body Mass Index (BMI) 26.9 Intake and Output for Last 24 Hours 02/13/19 02/14/19 02/15/19 23:59 23:59 23:59 Intake Total 1713.33 / 1713.33 606.67 / 606.67 Output Total 150 / 150 Balance 1563.33 / 1563.33 606.67 / 606.67 Laboratory Tests Past 24 Hrs 02/14/19 02/14/19 02/14/19 13:00 13:00 13:00 WBC 21.7 H RBC 3.33 L Hgb 10.9 L Hct 33.5 L MCV 100.6 H MCH 32.7 H MCHC 32.5 RDW Std Deviation 92.1 H RDW Coeff of Gus 25.4 H Plt Count 73 L MPV 10.8 Immature Gran % (Auto) 4.200 H Neut % (Auto) 75.1 H Lymph % (Auto) 8.4 L Rhea % (Auto) 11.4 H Eos % (Auto) 0.2 Baso % (Auto) 0.7 Absolute Neuts (auto) 16.2 H Absolute Lymphs (auto) 1.82 Nucleated RBC % 5.9 H Differential Comment Diff Path Review May foll Platelet Estimate MOD DEC Polychromasia 1+ Anisocytosis 2+ Macrocytosis PT INR APTT Sodium 139 Potassium 3.4 L Chloride 107 Carbon Dioxide 25.0 Anion Gap 7 BUN 16 Creatinine 0.68 Estim Creat Clear Calc 41.40 Est GFR (MDRD) Af Amer 110 Est GFR (MDRD) Non-Af 91 BUN/Creatinine Ratio 23.5 H Glucose 98 Lactic Acid Calcium 8.9 Total Bilirubin AST ALT Alkaline Phosphatase Lactate Dehydrogenase Troponin I < 0.015 B-Natriuretic Peptide 73.1 Total Protein Albumin Globulin Albumin/Globulin Ratio Blood Type Antibody Screen 02/14/19 02/15/19 02/15/19 13:50 05:30 05:30 WBC 18.4 H RBC 2.65 L Hgb 8.9 L Hct 27.6 L MCV 104.2 H MCH 33.6 H MCHC 32.2 RDW Std Deviation 94.3 H RDW Coeff of Gus 25.4 H Plt Count 60 L MPV 12.2 H Immature Gran % (Auto) 4.700 H Neut % (Auto) 71.3 H Lymph % (Auto) 8.2 L Rhea % (Auto) 14.2 H Eos % (Auto) 0.9 Baso % (Auto) 0.7 Absolute Neuts (auto) 13.2 H Absolute Lymphs (auto) 1.51 Nucleated RBC % 6.4 H Differential Comment SCANNED Diff Path Review May foll Platelet Estimate MOD DEC Polychromasia 1+ Anisocytosis Macrocytosis 3+ PT INR APTT Sodium 141 Potassium 3.8 Chloride 110 H Carbon Dioxide 24.0 Anion Gap 7 BUN 13 Creatinine 0.55 Estim Creat Clear Calc 41.40 Est GFR (MDRD) Af Amer 140 Est GFR (MDRD) Non-Af 115 BUN/Creatinine Ratio 23.5 H Glucose 82 Lactic Acid 1.5 Calcium 8.1 L Total Bilirubin 1.70 H AST 145 H ALT 71 H Alkaline Phosphatase 264 H Lactate Dehydrogenase 363 H Troponin I B-Natriuretic Peptide Total Protein 4.3 L Albumin 2.1 L Globulin 2.2 Albumin/Globulin Ratio 1.0 Blood Type Antibody Screen 02/15/19 02/15/19 05:30 09:40 WBC RBC Hgb Hct MCV MCH MCHC RDW Std Deviation RDW Coeff of Gus Plt Count MPV Immature Gran % (Auto) Neut % (Auto) Lymph % (Auto) Rhea % (Auto) Eos % (Auto) Baso % (Auto) Absolute Neuts (auto) Absolute Lymphs (auto) Nucleated RBC % Differential Comment Diff Path Review Platelet Estimate Polychromasia Anisocytosis Macrocytosis PT 18.5 H INR 1.6 APTT 50.6 H Sodium Potassium Chloride Carbon Dioxide Anion Gap BUN Creatinine Estim Creat Clear Calc Est GFR (MDRD) Af Amer Est GFR (MDRD) Non-Af BUN/Creatinine Ratio Glucose Lactic Acid Calcium Total Bilirubin AST ALT Alkaline Phosphatase Lactate Dehydrogenase Troponin I B-Natriuretic Peptide Total Protein Albumin Globulin Albumin/Globulin Ratio Blood Type Pending Antibody Screen Pending Clinical Impression(s) from Imaging Studies Chest X-Ray 02/14/19 13:25 IMPRESSION: New mild to moderate left and small right pleural effusion. There is new focus of linear atelectasis in the left midlung. Mild to moderate left and mild right subsegmental atelectasis versus infiltrate in the lung bases. Course interstitial prominence which may be due to chronic changes. Scattered foci of metastatic osseous lesions. Electronically Signed: Eric Mcgrath MD at 13:43 EDT Tel [phone], Service support , Assessment/Plan All Active Problems Hypokalemia (Acute) Acute diarrhea (Acute) Generalized weakness (Acute) Dyspnea (Acute) Pleural effusion (Acute) RECOMMENDATIONS: 1. Agree with diagnostic/therapeutic thoracentesis 2. Will add culture and cytology to diagnostic studies 3. Walking oximetry prior to discharge 4. Defer transfusions to oncology IMPRESSIONS: 1. Respiratory insufficiency secondary to CAP versus bilateral pleural effusions versus cardiomyopathy Unclear etiology at this time. Patient does have significant bilateral pleural effusions that are noted. Patient does have a recent history of pneumonitis secondary to chemotherapy. Patient has never had a thoracentesis, so a diagnostic and therapeutic thoracentesis would be reasonable at this time. Previous echocardiograms have shown diastolic dysfunction, so this can also be an etiology. Will add cytology and culture given patient's immunocompromised status and history of metastatic breast cancer. If cytology is positive, evaluation for Pleurx catheter could be investigated if this recurs. Patient is undergoing active chemotherapy at this time. Further recommendations pending thoracentesis results. 2. Possible community-acquired pneumonia in immunocompromised state Patient is currently receiving IV antibiotics. Patient appears to be tolerating penicillin well without any difficulties. Antigens are currently pending. Patient does have a pleural effusion, which makes evaluation of infiltrates difficult. This would be very difficult to differentiate from pneum onitis secondary to chemotherapy in the acute setting. 3. Metastatic breast cancer/hypertension/hypokalemia/anemia/thrombocytopenia Complicates care, management, recovery and prognosis. Oncology has seen the patient. Blood pressure is well controlled at this time. Defer any transfusions to oncology. Code Visit Inpatient E&M: 38231 Init Hosp L3
[2019-02-15] MEDS: Losartan Potassium 25 MG Tablet PO (09:51)
[2019-02-15] MEDS: Pantoprazole Sodium 40 MG Tablet PO (09:51)
[2019-02-15] MEDS: Ondansetron 4 MG/2 ML Vial IV (11:41)
--- NOTE | 2019-02-15 13:04 | CASEMGMT ---
RN CM REPORTING CONSULTANT CM to room to meet with patient for initial transition planning/care coordination assessment. NORA CARLOS introduced self and role at [facility]. Pt voices understanding and consents to assessment at this time. Pt resting in bed in no distress at this time. Pt is A/O at this time and answers all questions appropriately. Care providers, pharmacy, and demographics verified/updated at this time. PCP: Blu Specialists: Yasmin Reeves Pharmacy: [facility] Insurance: MCR, MMO [facility] Prescription Benefit: Yes Living Will/HPOA: Has both LW and HCPOA, who is her , Toan. She states her is planning on bringing in copies to be placed in pt's file. LNOK: Living Arrangements: Lives with in one-story home w/2 steps to enter. States is independent with personal ADL's. and pt share home mgmt tasks. Transportation: Pt states drives self and states no transportation concerns at this time. will drive pt home @ D/C. DME: Denies using any DME and denies needs. States if she would need anything @ discharge, she has no preference of DME company. HHC/SNF: No history of SNF. [facility]. Denies needs for HHC @ discharge. PT/OT evals pending. Pt wishes to return home and states has no concerns with going home at time of discharge. Pt voices no further concerns/needs at this time. Advised pt to ask for CM if any further questions/concerns/needs arise. Voices understanding. PLAN: Home w/family support and discharge plans in place. CM to follow for any further discharge planning/needs. PT/OT evals pending. Citlali SHI RN, CM
--- NOTE | 2019-02-15 13:28 | PCM.PROGNOTE ---
Patient Problems: Active and Suspected Problems Dyspnea (Acute) Pleural effusion (Acute) Subjective: Patient seen and examined. Undergoing echocardiogram. Lying flat and denies significant shortness of breath. On room air. Reports her shortness of breath is worsened with activity. - Physical Exam General: Alert, Oriented x3, Cooperative HEENT: Atraumatic, PERRLA, EOMI, Normocephalic Neck: Supple, No JVD, Negative Carotid Bruits Lungs: Clear to auscultation, Diminished Cardiovascular: Regular rate, Regular Rhythm, Normal S1, Normal S2, No murmurs Abdomen: Bowel Sounds Present, Soft, Non Tender, Non-Distended Extremities: No clubbing, No cyanosis, No edema, Capillary Refill Less than 3 Seconds Skin: No rashes, No breakdown Musculoskeletal: No Tenderness to Palpation of Joints or Extremities Neurological: Cranial nerves II-XII grossly intact, Neuro grossly intact Psych/Mental Status: Normal Affect, Appropriate Vital Signs Temp Pulse Resp BP Pulse Ox 97.7 F L 101 H 16 124/77 H 95 02/15/19 13:18 02/15/19 13:18 02/15/19 13:18 02/15/19 13:18 02/15/19 13:18 Oxygen Flow Rate (L/min) 2 Oxygen Delivery Method Room Air Weight: 150 lb 12.739 oz Body Mass Index (BMI) 26.9 Intake and Output for Last 24 Hours 02/13/19 02/14/19 02/15/19 23:59 23:59 23:59 Intake Total 1713.33 / 1713.33 1315.00 / 1315.00 Output Total 150 / 150 Balance 1563.33 / 1563.33 1315.00 / 1315.00 Laboratory Tests Past 24 Hrs 02/14/19 02/14/19 02/14/19 13:00 13:00 13:00 WBC RBC Hgb Hct MCV MCH MCHC RDW Std Deviation RDW Coeff of Gus Plt Count MPV Immature Gran % (Auto) Neut % (Auto) Lymph % (Auto) Sheridan % (Auto) Eos % (Auto) Baso % (Auto) Absolute Neuts (auto) Absolute Lymphs (auto) Nucleated RBC % Differential Comment Diff Path Review May foll Platelet Estimate MOD DEC Polychromasia 1+ Anisocytosis 2+ Macrocytosis PT INR APTT Sodium 139 Potassium 3.4 L Chloride 107 Carbon Dioxide 25.0 Anion Gap 7 BUN 16 Creatinine 0.68 Estim Creat Clear Calc 41.40 Est GFR (MDRD) Af Amer 110 Est GFR (MDRD) Non-Af 91 BUN/Creatinine Ratio 23.5 H Glucose 98 Lactic Acid Calcium 8.9 Total Bilirubin AST ALT Alkaline Phosphatase Lactate Dehydrogenase Troponin I < 0.015 B-Natriuretic Peptide 73.1 Total Protein Albumin Globulin Albumin/Globulin Ratio Blood Type Antibody Screen 02/14/19 02/15/19 02/15/19 13:50 05:30 05:30 WBC 18.4 H RBC 2.65 L Hgb 8.9 L Hct 27.6 L MCV 104.2 H MCH 33.6 H MCHC 32.2 RDW Std Deviation 94.3 H RDW Coeff of Gus 25.4 H Plt Count 60 L MPV 12.2 H Immature Gran % (Auto) 4.700 H Neut % (Auto) 71.3 H Lymph % (Auto) 8.2 L Sheridan % (Auto) 14.2 H Eos % (Auto) 0.9 Baso % (Auto) 0.7 Absolute Neuts (auto) 13.2 H Absolute Lymphs (auto) 1.51 Nucleated RBC % 6.4 H Differential Comment SCANNED Diff Path Review May foll Platelet Estimate MOD DEC Polychromasia 1+ Anisocytosis Macrocytosis 3+ PT INR APTT Sodium 141 Potassium 3.8 Chloride 110 H Carbon Dioxide 24.0 Anion Gap 7 BUN 13 Creatinine 0.55 Estim Creat Clear Calc 41.40 Est GFR (MDRD) Af Amer 140 Est GFR (MDRD) Non-Af 115 BUN/Creatinine Ratio 23.5 H Glucose 82 Lactic Acid 1.5 Calcium 8.1 L Total Bilirubin 1.70 H AST 145 H ALT 71 H Alkaline Phosphatase 264 H Lactate Dehydrogenase 363 H Troponin I B-Natriuretic Peptide Total Protein 4.3 L Albumin 2.1 L Globulin 2.2 Albumin/Globulin Ratio 1.0 Blood Type Antibody Screen 02/15/19 02/15/19 05:30 09:40 WBC RBC Hgb Hct MCV MCH MCHC RDW Std Deviation RDW Coeff of Gus Plt Count MPV Immature Gran % (Auto) Neut % (Auto) Lymph % (Auto) Sheridan % (Auto) Eos % (Auto) Baso % (Auto) Absolute Neuts (auto) Absolute Lymphs (auto) Nucleated RBC % Differential Comment Diff Path Review Platelet Estimate Polychromasia Anisocytosis Macrocytosis PT 18.5 H INR 1.6 APTT 50.6 H Sodium Potassium Chloride Carbon Dioxide Anion Gap BUN Creatinine Estim Creat Clear Calc Est GFR (MDRD) Af Amer Est GFR (MDRD) Non-Af BUN/Creatinine Ratio Glucose Lactic Acid Calcium Total Bilirubin AST ALT Alkaline Phosphatase Lactate Dehydrogenase Troponin I B-Natriuretic Peptide Total Protein Albumin Globulin Albumin/Globulin Ratio Blood Type B POSITIVE Antibody Screen NEGATIVE Medical Necessity - Tobacco Use Smoking Status: Never smoker Tobacco Use: Non-smoker Assessment/Plan All Active Problems Hypokalemia (Acute) Acute diarrhea (Acute) Generalized weakness (Acute) Dyspnea (Acute) Pleural effusion (Acute) 1. Probable sepsis secondary to community acquired pneumonia-chest x-ray on admission with mild to moderate left and small pleural effusion. Mild right subsegmental atelectasis versus infiltrate in the lung bases. Patient with leukocytosis, tachycardia and tachypnea on admission. Not noted to be hypoxic. Afebrile. Continue IV Rocephin and IV azithromycin. Albuterol and DuoNeb aerosols. Blood cultures pending. 2. Progressive dyspnea-suspect multifactorial, secondary to #1 versus pleural effusions. Echo with diastolic dysfunction as well. Echocardiogram demonstrates an EF of 75%, stage I diastolic dysfunction. Chest x-ray with pleural effusions as noted above. Plan to undergo diagnostic and therapeutic thoracentesis. 2 units of FFP ordered given elevated INR and low platelets. 3. Hypokalemia-replaced per protocol, resolved. 4. Elevated liver profile-unclear etiology. Will obtain liver ultrasound. 5. Metastatic breast CA- follows with Dr. Hoffman. Oncology consulted. 6. Pancytopenia secondary to chemotherapy- trend CBC. 7. Hypertension-stable, continue home losartan regimen. DVT prophylaxis-SCDs, pharmacologic prophylaxis contraindicated This patient was seen by ERNESTINE Shah under the supervision of Dr. Rutledge.
[2019-02-15 13:46] LABS: Pathologist Review Reviewed
[2019-02-15 13:49] LABS: Pathologist Review Reviewed
--- NOTE | 2019-02-15 13:49 | US_ITS ---
STUDY: ABDOMINAL ULTRASOUND - RIGHT UPPER QUADRANT REASON FOR VISIT: Female, 68 years old. Elevated LFTs TECHNIQUE: Ultrasound evaluation of the right upper quadrant was performed with real-time and static carlos-scale imaging. TECHNICAL QUALITY: Adequate. COMPARISON: None. FINDINGS: Liver: The liver measures 16.1 cm. There is diffusely increased echogenicity of the liver. The bile ducts are within normal limits. There is hepatic color flow. The direction of portal flow is hepatopetal. There is no demonstrated mass lesion. Gallbladder: Normal distended gallbladder. The gallbladder wall measures 2 mm. There is a negative sonographic Marley's sign. There is no pericholecystic fluid. There are no gallstones. Common Bile Duct (C.B.D.): The common bile duct measures 5 mm. Pancreas: Normal size of the head, body and tail of the pancreas. There is normal echogenicity of the pancreas. There is no demonstrated pancreatic mass or cyst. Right Kidney: Normal size of the right kidney. The right kidney measures 10 x 4.6 x 4.1 cm. Normal renal cortex. The right cortex measures 1 cm. There is a cyst measuring 1.5 x 1.3 cm. There is no right hydronephrosis. US/Liver IMPRESSION: Enlarged fatty infiltrated liver.. Small right renal cyst Incidental finding of mild ascites and mild pleural fluid Electronically Signed: Dez Paulino MD at 20:28 EDT , Service support ,
--- NOTE | 2019-02-15 14:21 | CHAPLAIN ---
introduction to patient and role of logistics supply officer; pt has visitors at this time and asks logistics supply officer to come back tomorrow
[2019-02-15] MEDS: Topiramate 25 MG Tablet PO (23:05)
[2019-02-15] MEDS: Famotidine 20 MG Tablet PO (23:05)
[2019-02-16] VITALS (7 sets, daily range): BP systolic 103–133; BP diastolic 52–83; PULSE 98–107; RESP 14–16; TEMP 36.6–37.3; O2SAT 92–98
[2019-02-16 06:07] LABS: Hematocrit 28.3 % (37-47); Hemoglobin 9.1 g/dL (12.0-15.0); Mean Corp Hgb Conc 32.2 g/dL (32-36); Mean Corpuscular Hgb 33.6 pg (27.0-32.0); Mean Corpuscular Volume 104.4 fL (81-99); POSITIVE MORPHOLOGY YES; Platelet Count 55 K/mm3 (150-450); RBC Distribution Width CV 25.5 % (11.6-14.6); RBC Distribution Width SD 94.2 fl (35.1-43.9); Red Blood Count 2.71 M/mm3 (4.2-5.4); White Blood Count 17.2 K/mm3 (4.4-11.0)
[2019-02-16 06:09] LABS: Scan Indicated on CBC? Y/N YES- FLAGS NOTED
[2019-02-16 06:13] LABS: International Normalized Ratio 1.4; Prothrombin Time (Protime)PT. 17.3 SECONDS (11.7-14.9)
[2019-02-16 06:35] LABS: Differential Comment SCANNED
--- NOTE | 2019-02-16 07:49 | PN_ITS ---
Patient Problems: Active and Suspected Problems Dyspnea (Acute) Pleural effusion (Acute) Subjective: Patient did okay overnight. No subjective change in overall condition. Patient is reportedly to receive a thoracentesis early this morning. Patient is excited to get it done. Patient denies any pleuritic chest pain at this time. No bleeding has been reported. Patient has remained on room air overnight. Objective: Echocardiogram shows an EF of 75% with diastolic dysfunction and little signifi cant change compared to previous. Liver ultrasound showed a fatty liver with some mild ascites. - Physical Exam General: Alert, Oriented x3, Cooperative, No apparent distress, Well developed, Well nourished, - - Alopecia. No conversational dyspnea. HEENT: Atraumatic, PERRLA, EOMI, Normocephalic, - - No scleral icterus or injection noted. Oral: Moist Mucosa, No Gingival or Mucosal Lesions/ Ulcerations Neck: Supple, No JVD, No Nodes, Trachea Midline Lungs: No rhonchi, No wheeze, Diminished - Left greater than right base Cardiovascular: Regular rate, Regular Rhythm, Normal S1, Normal S2, No murmurs, No rub noted, No Gallop Abdomen: Bowel Sounds Present, Soft, Non Tender, Non-Distended Extremities: No clubbing, No cyanosis, Capillary Refill Less than 3 Seconds, Edema - Slightly improved Skin: No rashes, No breakdown Musculoskeletal: No Tenderness to Palpation of Joints or Extremities Lymphatic: No Cervical, Supraclavicular, or Inguinal Adenopathy Neurological: Cranial nerves II-XII grossly intact, Neuro grossly intact, Motor Exam 5/5 strength throughout Psych/Mental Status: Alert and oriented to time, place, person, mood and affect Vital Signs Temp Pulse Resp BP Pulse Ox 37.3 C 106 H 16 103/52 L 92 02/16/19 03:13 02/16/19 03:13 02/16/19 03:13 02/16/19 03:13 02/16/19 03:13 Oxygen Flow Rate (L/min) 2 Oxygen Delivery Method Room Air Weight: 69.7 kg Body Mass Index (BMI) 26.9 Intake and Output for Last 24 Hours 02/14/19 02/15/19 02/16/19 23:59 23:59 23:59 Intake Total 1713.33 / 1713.33 1835.00 / 1835.00 0 / 0 Output Total 150 / 150 150 / 150 Balance 1563.33 / 1563.33 1835.00 / 1835.00 -150 / -150 Laboratory Tests Past 24 Hrs 02/14/19 02/15/19 02/15/19 13:00 05:30 09:40 WBC RBC Hgb Hct MCV MCH MCHC RDW Std Deviation RDW Coeff of Gus Plt Count MPV Differential Comment Diff Path Review Reviewed Reviewed PT INR Blood Type B POSITIVE Antibody Screen NEGATIVE 02/16/19 02/16/19 05:50 05:50 WBC 17.2 H RBC 2.71 L Hgb 9.1 L Hct 28.3 L MCV 104.4 H MCH 33.6 H MCHC 32.2 RDW Std Deviation 94.2 H RDW Coeff of Gus 25.5 H Plt Count 55 L MPV 11.0 Differential Comment SCANNED Diff Path Review PT 17.3 H INR 1.4 Blood Type Antibody Screen Clinical Impression(s) from Imaging Studies Liver Ultrasound 02/15/19 13:49 IMPRESSION: Enlarged fatty infiltrated liver.. Small right renal cyst Incidental finding of mild ascites and mild pleural fluid Electronically Signed: Dez Paulino MD at 20:28 EDT , Service support , Medical Necessity - Tobacco Use Smoking Status: Never smoker Tobacco Use: Non-smoker Assessment/Plan All Active Problems Hypokalemia (Acute) Acute diarrhea (Acute) Generalized weakness (Acute) Dyspnea (Acute) Pleural effusion (Acute) RECOMMENDATIONS: 1. Agree with diagnostic/therapeutic thoracentesis 2. Await diagnostic studies 3. Walking oximetry prior to discharge 4. Defer transfusions to oncology IMPRESSIONS: 1. Respiratory insufficiency secondary to CAP versus bilateral pleural effusions versus cardiomyopathy Unclear etiology at this time. Patient does have significant bilateral pleural effusions that are noted. Patient does have a recent history of pneumonitis secondary to chemotherapy. Patient has never had a thoracentesis, so a diagnostic and therapeutic thoracentesis would be reasonable at this time. Current echocardiogram has shown diastolic dysfunction, so this can also be an etiology. Will add cytology and culture given patient's immunocompromised status and history of metastatic breast cancer. If cytology is positive, evaluation for Pleurx catheter could be investigated as an outpatient if this recurs. Patient is undergoing active chemotherapy at this time. Light's criteria can be altered by diuresis. Further recommendations pending thoracentesis results. 2. Possible community-acquired pneumonia in immunocompromised state Patient is currently receiving IV antibiotics. Patient appears to be tolerating penicillin well without any difficulties. Antigens are currently pending. Patient does have a pleural effusion, which makes evaluation of in filtrates difficult. This would be very difficult to differentiate from pneumonitis secondary to chemotherapy in the acute setting. 3. Metastatic breast cancer/hypertension/hypokalemia/anemia/thrombocytopenia Complicates care, management, recovery and prognosis. Oncology has seen the patient. Blood pressure is well controlled at this time. Defer any transfusions to oncology. Code Visit Inpatient E&M: 90705 Subs Hosp L2
--- NOTE | 2019-02-16 08:00 | US_ITS ---
PROCEDURE: ULTRASOUND GUIDED THORACENTESIS. DATE: 02/16/2019. CLINICAL INDICATION: Pleural effusion. PHYSICIAN: Dr. Eric Mcgrath M.D. PROCEDURE: The risks, benefits, and alternatives to the procedure were explained to the patient. The specific risks of bleeding, infection, and pneumothorax requiring chest tube insertion were discussed and accepted. Written informed consent was obtained. Ultrasonographic evaluation of the left lower pleural space was carried out. An adequate pocket was identified. The patient was placed in the sitting, upright position. The overlying skin was prepped and draped in sterile fashion. 1% lidocaine was administered subcutaneously for local anesthesia. Under ultrasound guidance, a 5 Ni[place]an thoracentesis needle/catheter system was advanced into the left posterior lower pleural fluid collection. Approximately 350 mL of whitish fluid was drained. The catheter was removed, and a sterile dressing was applied. A specimen was collected and sent to the laboratory for analysis, as requested by the referring clinician. The patient tolerated the procedure well. A chest x-ray was ordered, with no pneumothorax observed posterior arthrodesis. US/Thoracentesis W US IMPRESSION: Successful ultrasound guided left thoracentesis with total of 350 cc of whitish fluid obtained from the left inferior pleural space. Electronically Signed: Eric Mcgrath MD at 11:33 EDT Tel [phone], Service support ,
--- NOTE | 2019-02-16 08:45 | RAD_ITS ---
STUDY: X-RAY CHEST REASON FOR EXAM: Female, 68 years old. Post thoracentesis, after removal of 350 cc of whitish pleural fluid from the left side TECHNIQUE: Inspiration view COMPARISON: None. FINDINGS: No evidence of mediastinal shift or pneumothorax. Significant improvement of the left pleural effusion. Residual atelectasis versus infiltrate in the left lower lung, and to a lesser extent in the right lower lung. Small remaining pleural effusion bilaterally. Course interstitial prominence which may be due to chronic changes. Heart size is prominent. There are diffuse degenerative changes of the visualized thoracic spine. Scattered foci of metastatic osseous lesions. There is no demonstrated abnormality of the visualized soft tissue structures of the upper abdomen. RAD/Chest Insp/Exp 2 View IMPRESSION: No evidence of mediastinal shift or pneumothorax post left thoracentesis. Significant improvement of the left pleural effusion. Residual atelectasis versus infiltrate in the left lower lung, and to a lesser extent in the right lower lung. Small remaining pleural effusion bilaterally. Electronically Signed: Eric Mcgrath MD at 9:31 EDT Tel [phone], Service support ,
--- NOTE | 2019-02-16 09:00 | FLU_PTH ---
PATIENT: SEAMUS LINDER LOC: [facility] U#:[id number] AGE/SX: 68/F ROOM: [facility] RE02/14/[address]: Dr. Shawn Garsia DO : 1950 BED: 1 DIS: 02/16/2019 SPEC #: [id number] RECD: 02/16/19 10:19 STATUS: SHORTY REQ #: [id number] DARRELL: 02/16/19 09:[address]: Shawn Garsia DEPT: CYTOLOGY RECD BY: Chidi Tobias ENTERED: 02/16/19 10:19 SP TYPE: Fluid OTHR DR: MD Dr. Sukhdeep King MD Dr. Chitra Ganta, MD Dr. Paul Masci, DO Tissues: THORACIC FLUID Procedures: Special Stain Group II Surgery Specimen Level IV Cytospin Fluid HEADER OPERATION: Thoracentesis PRE-OP DIAGNOSIS: Pleural effusion TISSUE SUBMITTED: Thoracentesis fluid for cytology DIAGNOSIS CYTOLOGY Thoracentesis fluid for cytology (cytospin): Negative for malignant cells. SJ:rg 02/17/19 COMMENT Clinical correlation and appropriate follow up are necessary. CYTOLOGY STUDY Slides are reviewed. CYTOLOGY GROSS Received is 100 ml of yellow cloudy fluid labeled with the patient's name and and designated per the requisition as thoracentesis. Submitted for cytology preparation including cell block. / 02/16/19 TC:5 CPT: 92353, 08983
[2019-02-16 09:10] LABS: Cytology, Body Fluid / CSF SEE PATHOLOGY REPORT
[2019-02-16] MEDS: Pantoprazole Sodium 40 MG Tablet PO (09:29)
[2019-02-16] MEDS: Multivitamins,Therapeutic Tablet 1 TABLET PO (09:29)
[2019-02-16] MEDS: Losartan Potassium 25 MG Tablet PO (09:30)
[2019-02-16] MEDS: Ceftriaxone 1 GM/50 ML BAG IV (09:31)
[2019-02-16] MEDS: 0.9% NaCl Peripheral Flush Adult/Peds IV (09:31)
[2019-02-16 09:54] LABS: Glucose, Body Fluid 97 mg/dL (40-70); LDH,Body Fluid 83 Units/l (Not Establ.)
[2019-02-16 10:02] LABS: Body Fluid Mononuclear WBC # 0.339 10^3/uL; Body Fluid Mononuclear WBC % 91.8 %; Body Fluid Polynuclear WBC % 8.2 %; Body Fluid Total Cells Counted 0.509 10^3/ul (0.000-0.000); White Blood Count/Body Fluid 0.369 10^3/uL
[2019-02-16 10:38] LABS: Appearance/Body Fluid CLOUDY; Auto B Fluid Analyzer BKGD Ct COUNTS W/IN LIMITS (W/IN LIMITS); Color/Body Fluid LT YEL; Red Cell Count/Body Fluid 1715 /mm3; Source- Body Fluid THORACENTESIS
--- NOTE | 2019-02-16 11:26 | CASEMGMT ---
SW completed palliative care screening consult, pt scores a 3 at this time. A referral to palliative care is not indicated at this time. Should be be admitted to the hospital again, it may appropriate at that time. KESHIA Johnson
[2019-02-16 11:27] LABS: Lymphocytes 36 %; Macrophages 34 %; Monocytes 10 %; Neutrophil (Segs) 8 %; Other Cell Type/BF 12 %
[2019-02-16 11:29] LABS: Body Fluid QC Type(s) BF1Q,BF2Q
--- NOTE | 2019-02-16 12:45 | RAD_ITS ---
STUDY: X-RAY CHEST REASON FOR EXAM: Female, 68 years old. Post thoracentesis, 4 hours assessment TECHNIQUE: Inspiration or expiration views COMPARISON: 02/16/2019 at 8:52 AM. FINDINGS: No evidence of mediastinal shift or pneumothorax. Residual atelectasis versus infiltrate in the left lower lung, and to a lesser extent in the right lower lung. Small remaining pleural effusion bilaterally. Coarse interstitial prominence which may be due to chronic changes. Heart size is prominent. There are diffuse degenerative changes of the visualized thoracic spine. Scattered foci of metastatic osseous lesions. There is no demonstrated abnormality of the visualized soft tissue structures of the upper abdomen. RAD/Chest Insp/Exp 2 View IMPRESSION: No evidence of mediastinal shift or pneumothorax post left thoracentesis, at 4 hours after procedure. Residual atelectasis versus infiltrate in the left lower lung, and to a lesser extent in the right lower lung. Small remaining pleural effusion bilaterally. Electronically Signed: Eric Mcgrath MD at 13:04 EDT Tel [phone], Service support ,
--- NOTE | 2019-02-16 13:24 | PCM.PROGNOTE ---
Patient Problems: Active and Suspected Problems Dyspnea (Acute) Pleural effusion (Acute) Subjective: No SOB at rest or exertion. No cough. Patient ambulated without issue today. Not requiring o2. No wheezing. No fever/chill. Tolerated thora without pain or issues. - Physical Exam General: Alert, Oriented x3, Cooperative HEENT: Atraumatic, PERRLA, EOMI, Normocephalic Neck: Supple, No JVD, Negative Carotid Bruits Lungs: Normal air movement, No rales - RLL, RML Cardiovascular: Regular rate, No murmurs Abdomen: Bowel Sounds Present, Soft, Non Tender Extremities: Capillary Refill Less than 3 Seconds, Edema - 1-2 + pitting edema BLE Skin: No rashes, No breakdown Musculoskeletal: No Tenderness to Palpation of Joints or Extremities Neurological: Cranial nerves II-XII grossly intact Psych/Mental Status: Normal Affect, Appropriate, Alert and oriented to time, place, person, mood and affect Vital Signs Temp Pulse Resp BP Pulse Ox 98.3 F 98 14 120/58 L 92 02/16/19 09:15 02/16/19 09:15 02/16/19 09:15 02/16/19 09:15 02/16/19 09:15 Oxygen Flow Rate (L/min) 2 Oxygen Delivery Method [4] Room Air Oxygen Delivery Method [3] Room Air Oxygen Delivery Method [2] Room Air Oxygen Delivery Method [1 ( Room Air Initial Baseline)] Oxygen Delivery Method Room Air Weight: 153 lb 10.595 oz Body Mass Index (BMI) 26.9 Intake and Output for Last 24 Hours 02/14/19 02/15/19 02/16/19 23:59 23:59 23:59 Intake Total 1713.33 / 1713.33 1835.00 / 1835.00 425 / 425 Output Total 150 / 150 450 / 450 Balance 1563.33 / 1563.33 1835.00 / 1835.00 -25 / -25 Microbiology Past 72 Hours 02/16/19 09:00 Gram Stain - Final Fluid - Thoracentesis Fluid Laboratory Tests Past 24 Hrs 02/14/19 02/15/19 02/15/19 13:00 05:30 09:40 WBC RBC Hgb Hct MCV MCH MCHC RDW Std Deviation RDW Coeff of Gus Plt Count MPV Differential Comment Diff Path Review Reviewed Reviewed PT INR Fluid Source Fluid Color Fluid Appearance Fluid WBC Fluid RBC Fluid Tot Cell Count Fld Polynuclear WBCs # Fld Polynuclear WBCs % Fluid Mononuclear WBCs Fld Mononuclear WBCs % Fluid Neutrophils Fluid Lymphocytes Fluid Monocytes Fluid Macrophages Fluid Other Cells Fl Pathologist Comment Fluid Glucose Fluid Total Protein Fluid LDH Fluid Comment 2 Miscellaneous Cytology Blood Type B POSITIVE Antibody Screen NEGATIVE 02/16/19 02/16/19 02/16/19 05:50 05:50 09:00 WBC 17.2 H RBC 2.71 L Hgb 9.1 L Hct 28.3 L MCV 104.4 H MCH 33.6 H MCHC 32.2 RDW Std Deviation 94.2 H RDW Coeff of Gus 25.5 H Plt Count 55 L MPV 11.0 Differential Comment SCANNED Diff Path Review PT 17.3 H INR 1.4 Fluid Source Fluid Color Fluid Appearance Fluid WBC Fluid RBC Fluid Tot Cell Count Fld Polynuclear WBCs # Fld Polynuclear WBCs % Fluid Mononuclear WBCs Fld Mononuclear WBCs % Fluid Neutrophils Fluid Lymphocytes Fluid Monocytes Fluid Macrophages Fluid Other Cells Fl Pathologist Comment Fluid Glucose 97 H Fluid Total Protein 2.0 Fluid LDH 83 Fluid Comment 2 Miscellaneous Cytology Blood Type Antibody Screen 02/16/19 02/16/19 09:00 09:00 WBC RBC Hgb Hct MCV MCH MCHC RDW Std Deviation RDW Coeff of Gus Plt Count MPV Differential Comment Diff Path Review PT INR Fluid Source THORACENTESIS Fluid Color LT YEL Fluid Appearance CLOUDY Fluid WBC 0.369 Fluid RBC 1715 Fluid Tot Cell Count 0.509 H Fld Polynuclear WBCs # 0.030 Fld Polynuclear WBCs % 8.2 Fluid Mononuclear WBCs 0.339 Fld Mononuclear WBCs % 91.8 Fluid Neutrophils 8 Fluid Lymphocytes 36 Fluid Monocytes 10 Fluid Macrophages 34 Fluid Other Cells 12 Fl Pathologist Comment May follow Fluid Glucose Fluid Total Protein Fluid LDH Fluid Comment 2 SEE COMMENT Miscellaneous Cytology Pending Blood Type Antibody Screen Medical Necessity - Tobacco Use Smoking Status: Never smoker Tobacco Use: Non-smoker Assessment/Plan All Active Problems Hypokalemia (Acute) Acute diarrhea (Acute) Generalized weakness (Acute) Dyspnea (Acute) Pleural effusion (Acute) 1. Suspected sepsis 2/2 CAP, however in immunocompromised patient with breast cancer who has recently received chemo and neulasta - continue abx. Pulm following. Thora of left side today - 350cc white fluid out. Dyspnea resolved. F/u Xray with residual pleural effusions, right sided ? infiltrate, atelectasis. WBC improved. No fever. Echo EF 75% 2. Metastatic breast cancer - pt of Dr. Hoffman. Consulted. 3. Abnormal LFTs - Liver US with mild ascites, fatty liver, small right renal cyst. Repeat in AM. ? 2/2 sepsis. 4. Pancytopenia 2/2 chemo - leukocytosis may be a result of neulasta 5. HTN- stable. DVT ppx SCDs DC planning: Await fluid path This patient was seen by Anton Thompson PA-C under the supervision of Dr. Garsia.
--- NOTE | 2019-02-16 14:07 | DCINST_ITS ---
- Discharge Diagnoses Current Active Problems: Current Active and Chronic Problems Dyspnea (Acute) Pleural effusion (Acute) You will use the following diet at home:: No restrictions Your food should be the consistency of: Regular Your liquids should be the consistency of: Regular/Thin Discharge Activity: Return to Normal Activity Allergies/Adverse Reactions: Allergies alcohol Allergy (Verified 02/14/19 15:39) Rash--alcohol wipes doxycycline Allergy (Verified 02/14/19 15:07) Angioedema levofloxacin [From Levaquin] Allergy (Verified 02/14/19 11:47) Rash Penicillins Allergy (Verified 02/14/19 11:47) Rash clarithromycin [From Biaxin] Adverse Reaction (Verified 02/14/19 15:39) stomach pains codeine Adverse Reaction (Verified 02/14/19 15:39) Upset Stomach erythromycin base Adverse Reaction (Verified 02/14/19 11:47) Upset Stomach Medications to take at Discharge Cholecalciferol (Vitamin D3) [D3-2000] 2,000 unit PO DAILY 12/21/16 Esomeprazole Mag Trihydrate [Nexium] 40 mg PO DAILY 12/21/16 Topiramate [Topamax] 25 mg PO QHS 12/21/16 Multivitamins,Therapeutic [Multivitamin] 1 tablet PO DAILY 11/10/17 Rizatriptan Benzoate [Maxalt] 10 mg PO DAILY PRN PRN 11/06/18 traMADol [Ultram] 50 mg PO Q6H PRN PRN 11/06/18 Famotidine [Pepcid AC] 20 mg PO QHS 02/14/19 Furosemide [Lasix] 20 mg PO BID 02/14/19 Losartan Potassium [Cozaar] 25 mg PO DAILY 02/14/19 Primary Care Physician: Gretchen Hurt MD [Primary Care Provider] - Please follow up with your Primary Care Physician in: 2 weeks Test Results: Test results from this visit will be discussed in further detail at your follow- up appointment, if applicable. Please Follow Up With: Sukhdeep Ashford MD When: 1-2 weeks Please Follow Up With: Poncho Hoffman DO When: As directed Proposed Discharge Date: 02/16/19
--- NOTE | 2019-02-16 14:09 | PCM.DC.SUM ---
Discharge Date and Diagnosis - Problem List Patient Problems: Active and Suspected Problems Dyspnea (Acute) Pleural effusion (Acute) Date of Admission: 02/14/19 Date of Discharge: 02/16/19 - Primary Discharge Diagnosis Active and Suspected Problems Pleural effusion, transudative, unclear etiology Pneumonia ruled out Metastatic breast cancer Abnormal LFTs unclear etiology Pancytopenia 2/2 chemo HTN - Secondary Discharge Diagnosis Chronic Problems GERD (gastroesophageal reflux disease) (Chronic) Migraine (Chronic) Breast cancer metastasized to bone (Chronic) Hospital Course and Treatment Imaging Results: US/Thoracentesis W US IMPRESSION: Successful ultrasound guided left thoracentesis with total of 350 cc of whitish fluid obtained from the left inferior pleural space. Echo: Interpretation Summary The estimated ejection fraction is 75 %. Stage 1 diastolic dysfunction. Unable to estimate RV systolic pressure due to insufficient tricuspid regurgitant envelope. The global longitudinal strain = -20.9 % (normal). Compared to echo report dated 11/11/2017, no appreciable changes noted. RAD/Chest PA and Lateral IMPRESSION: New mild to moderate left and small right pleural effusion. There is new focus of linear atelectasis in the left midlung. Mild to moderate left and mild right subsegmental atelectasis versus infiltrate in the lung bases. Course interstitial prominence which may be due to chronic changes. Scattered foci of metastatic osseous lesions. US/Liver IMPRESSION: Enlarged fatty infiltrated liver.. Small right renal cyst Incidental finding of mild ascites and mild pleural fluid RAD/Chest Insp/Exp 2 View IMPRESSION: No evidence of mediastinal shift or pneumothorax post left thoracentesis. Significant improvement of the left pleural effusion. Residual atelectasis versus infiltrate in the left lower lung, and to a lesser extent in the right lower lung. Small remaining pleural effusion bilaterally. RAD/Chest Insp/Exp 2 View IMPRESSION: No evidence of mediastinal shift or pneumothorax post left thoracentesis, at 4 hours after procedure. Residual atelectasis versus infiltrate in the left lower lung, and to a lesser extent in the right lower lung. Small remaining pleural effusion bilaterally. Consults: Dejon - Pulmonology Masci - oncology Operations: None Procedures: 2-D Echocardiogram, Thoracentesis Summary of Care Provided: Hospital course: The patient is a 68 year old F with past medical history as above most notably for metastatic breast cancer with osseous lesions in the thoracic spine, who presented to the emergency room with shortness of breath, nonproductive cough, progressive dyspnea over the last 3months. She had had chemotherapy about 4 weeks prior for metastatic breast cancer per Dr. Hoffman. She also had had a CTA of the chest within the last 2 weeks that did not show a PE, however did show small bilateral pleural effusions at that time. He also been treated as an outpatient empirically with antibiotics for a week with no improvement. She had had her Lasix recently increased as well and had also been on a brief prednisone taper for suspected pneumonitis induced by Everolimus. She was found to have significant leukocytosis however she had recently received Neulasta, she did have chest x-ray demonstrating mild to moderate left and small right pleural effusion, atelectasis versus infiltrate in the bases. She is admitted to the PCU placed on empiric antibiotics for possible underlying pneumonia. She she was taken for thoracentesis and 350 cc of fluid removed. This was transudative. She had resolution of her shortness of breath. She was able to ambulate without any shortness of breath and without oxygen. Is felt that she likely did not have any underlying pneumonia. Is felt that her progressive shortness of breath was related to the pleural effusion, it is unclear what the etiology of the pleural effusion is at this time. She was discharged home in stable condition. She will continue her prior home medications. She was not prescribed antibiotics at this time. She was advised to follow-up with pulmonology in 1 to 2 weeks, oncology as directed, and with her PCP in 2 weeks. This patient was seen by Anton Thompson PA-C under the supervision of Doctor Garsia. [] Patient Problems: Active and Suspected Problems Dyspnea (Acute) Pleural effusion (Acute) - Physical Exam General: Alert, Oriented x3, Cooperative HEENT: Atraumatic, PERRLA, EOMI, Normocephalic Neck: Supple, No JVD, Negative Carotid Bruits Lungs: Normal air movement, No rales - RLL RML Cardiovascular: Regular rate, No murmurs Abdomen: Bowel Sounds Present, Soft, Non Tender Extremities: No edema, Capillary Refill Less than 3 Seconds Skin: No rashes, No breakdown Musculoskeletal: No Tenderness to Palpation of Joints or Extremities Neurological: Cranial nerves II-XII grossly intact Psych/Mental Status: Normal Affect, Appropriate Vital Signs Temp Pulse Resp BP Pulse Ox 98.3 F 98 14 120/58 L 92 02/16/19 09:15 02/16/19 09:15 02/16/19 09:15 02/16/19 09:15 02/16/19 09:15 Oxygen Flow Rate (L/min) 2 Oxygen Delivery Method [4] Room Air Oxygen Delivery Method [3] Room Air Oxygen Delivery Method [2] Room Air Oxygen Delivery Method [1 ( Room Air Initial Baseline)] Oxygen Delivery Method Room Air Weight: 153 lb 10.595 oz Body Mass Index (BMI) 26.9 Intake and Output for Last 24 Hours 02/14/19 02/15/19 02/16/19 23:59 23:59 23:59 Intake Total 1713.33 / 1713.33 1835.00 / 1835.00 425 / 425 Output Total 150 / 150 450 / 450 Balance 1563.33 / 1563.33 1835.00 / 1835.00 -25 / -25 Microbiology Past 72 Hours 02/16/19 09:00 Gram Stain - Final Fluid - Thoracentesis Fluid Laboratory Tests Past 24 Hrs 02/15/19 02/16/19 02/16/19 09:40 05:50 05:50 WBC 17.2 H RBC 2.71 L Hgb 9.1 L Hct 28.3 L MCV 104.4 H MCH 33.6 H MCHC 32.2 RDW Std Deviation 94.2 H RDW Coeff of Gus 25.5 H Plt Count 55 L MPV 11.0 Differential Comment SCANNED PT 17.3 H INR 1.4 Fluid Source Fluid Color Fluid Appearance Fluid WBC Fluid RBC Fluid Tot Cell Count Fld Polynuclear WBCs # Fld Polynuclear WBCs % Fluid Mononuclear WBCs Fld Mononuclear WBCs % Fluid Neutrophils Fluid Lymphocytes Fluid Monocytes Fluid Macrophages Fluid Other Cells Fl Pathologist Comment Fluid Glucose Fluid Total Protein Fluid LDH Fluid Comment 2 Miscellaneous Cytology Blood Type B POSITIVE Antibody Screen NEGATIVE 02/16/19 02/16/19 02/16/19 09:00 09:00 09:00 WBC RBC Hgb Hct MCV MCH MCHC RDW Std Deviation RDW Coeff of Gus Plt Count MPV Differential Comment PT INR Fluid Source THORACENTESIS Fluid Color LT YEL Fluid Appearance CLOUDY Fluid WBC 0.369 Fluid RBC 1715 Fluid Tot Cell Count 0.509 H Fld Polynuclear WBCs # 0.030 Fld Polynuclear WBCs % 8.2 Fluid Mononuclear WBCs 0.339 Fld Mononuclear WBCs % 91.8 Fluid Neutrophils 8 Fluid Lymphocytes 36 Fluid Monocytes 10 Fluid Macrophages 34 Fluid Other Cells 12 Fl Pathologist Comment May follow Fluid Glucose 97 H Fluid Total Protein 2.0 Fluid LDH 83 Fluid Comment 2 SEE COMMENT Miscellaneous Cytology Pending Blood Type Antibody Screen Discharge Diet: No Restrictions Discharge Activity: Return to Normal Activity Home Medications: Medications to take at Discharge Cholecalciferol (Vitamin D3) [D3-2000] 2,000 unit PO DAILY 12/21/16 Esomeprazole Mag Trihydrate [Nexium] 40 mg PO DAILY 12/21/16 Topiramate [Topamax] 25 mg PO QHS 12/21/16 Multivitamins,Therapeutic [Multivitamin] 1 tablet PO DAILY 11/10/17 Rizatriptan Benzoate [Maxalt] 10 mg PO DAILY PRN PRN 11/06/18 traMADol [Ultram] 50 mg PO Q6H PRN PRN 11/06/18 Famotidine [Pepcid AC] 20 mg PO QHS 02/14/19 Furosemide [Lasix] 20 mg PO BID 02/14/19 Losartan Potassium [Cozaar] 25 mg PO DAILY 02/14/19 Primary Care Physician: Gretchen Hurt MD [Primary Care Provider] - Please follow up with your Primary Care Physician in: 2 weeks Please Follow Up With: Sukhdeep Ashford MD When: 1-2 weeks Please Follow Up With: Poncho Hoffman DO When: As directed Disposition: Home Minutes spent on discharge:: 35 Patient Condition:: Stable Medical Necessity - Tobacco Use Smoking Status: Never smoker Tobacco Use: Non-smoker Meaningful Use Info Meaningful Use Diagnoses (Choose all that apply): None applicable
--- NOTE | 2019-02-16 15:39 | CASEMGMT ---
Per Cleopatra MELENDEZ, pt does not qualify for home oxygen at this time. Therapy stated that no further skilled therapy was needed for pt at this time. Pt ready for disposition. Giancarlo MELENDEZ
--- NOTE | 2019-02-17 13:22 | CASEMGMT ---
NORA CARLOS DC PHONE CALL DC DATE: 02/16/19 DC Disposition: Home Diagnosis on Discharge: Pleural effusion LACE/STRATA: 04/30 Intro role of CM to patient via phone. Pt does not have questions re: prescriptions or instructions. F/U appts made. Directions for Dr. Ashford's office given. No further questions. No care improvement suggestions given. Patrick GALEN RN AC
[2019-02-17 14:44] LABS: Pathologist Comment/Body Fluid Reviewed
== END 2019-02-16 15:42 | disposition home or self-care (01) | DRG 186 ==
LOC: ED 12:10 → PCU 14:54
PROVIDERS: Internal Medicine; Internal Medicine Critical Care Medicine; Nurse Practitioner Family; Admitting Provider Internal Medicine; Emergency Provider Emergency Medicine; Family Provider Internal Medicine; PCP Internal Medicine; Referring Provider Internal Medicine; Visit Provider Internal Medicine
DX: J90 Pleural effusion, not elsewhere classified (principal); D61.810 Antineoplastic chemotherapy induced pancytopenia; C79.51 Secondary malignant neoplasm of bone; E87.6 Hypokalemia; T45.1X5A Adverse effect of antineoplastic and immunosuppressive drugs, initial encounter; C50.911 Malignant neoplasm of unspecified site of right female breast; R06.89 Other abnormalities of breathing; R94.5 Abnormal results of liver function studies; I10 Essential (primary) hypertension; Z17.0 Estrogen receptor positive status [ER+]; K21.9 Gastro-esophageal reflux disease without esophagitis; G43.909 Migraine, unspecified, not intractable, without status migrainosus; Z79.899 Other long term (current) drug therapy; Z92.3 Personal history of irradiation
CPT/HCPCS: 32555; 36415; 71046; 76705; 80048; 80053; 82945; 83605; 83615; 83880; 84157; 84484; 85025; 85027; 85610; 85730; 86850; 86900; 86901; 87040; 87070; 87075; 87205; 88108; 88305; 88313; 89050; 93005; 93306; 94667; 94668; 97802; 99285; J7030; P9017; A4216; J2405

== ENCOUNTER 2019-02-25 10:33 | Emergency (ER) | payer MEDICARE, OTHER, SELFPAY ==
[2019-02-14 15:35] VITALS: BMI 26.9
[2019-02-25] VITALS (7 sets, daily range): BP systolic 106–128; BP diastolic 67–86; PULSE 91–122; RESP 16–19; TEMP 36.4–36.7; O2SAT 93–96; BMI 27.2
--- NOTE | 2019-02-25 10:43 | RAD_ITS ---
STUDY: X-RAY CHEST REASON FOR EXAM: Female, 68 years old. Shortness of breath TECHNIQUE: Frontal view of the chest COMPARISON: 02/16/2019 FINDINGS: There is a small left pleural effusion and moderate right pleural effusion with associated atelectasis. These are slightly increased when compared with the prior exam. There are no focal infiltrates. The heart is normal in size. The visualized osseous structures are within normal limits. RAD/Chest 1 View (Portable) IMPRESSION: Small left pleural effusion and moderate right pleural effusion which are slightly increased when compared with the prior exam. Electronically Signed: Jareth Chan, at 11:20 EDT Tel , Service support ,
--- NOTE | 2019-02-25 10:46 | ED.VIS.DYS ---
History of Present Illness Informant: Patient Onset: Days - 2 days Activity at onset: Exertion, Light Activity Timing: Intermittent Quality: Dyspnea on exertion, Orthopnea Current Severity: Moderate Maximum Severity: Severe Worsened by: Coughing, Exertion Relieved by: Nothing Associated Symptoms: Cough Chest Pain: Intermittent, Tightness Narrative: 68-year-old female metastatic breast cancer with metastasis to thoracic spine presents to the emergency department with 2 days of progressively worsening shortness of breath. Earlier this month approximately 2 weeks ago the patient had a thoracentesis and she feels similar to that she is having some tightness mostly on the left side of her chest feels short of breath and has had dyspnea on exertion. No fevers. She has a nonproductive cough. No vomiting or diarrhea. No lightheadedness or dizziness. No leg swelling or pain. PE Risk Factors: Cancer Prior similar symptoms: Yes Recent Illness/Hospitalization: Yes <Fadi Santana - Last Filed: 02/25/19 13:44> <Grady Brothers - Last Filed: 02/25/19 17:14> Chief Complaint: Shortness of Breath Past Medical History Prior records reviewed: Yes Past Medical History: - - Metastatic breast cancer, metastasis to thoracic spine Surgical History: hysterectomy, total knee arthroplasty - Bilateral knee replacement, tonsillectomy, - - R breast lumpectomy, status post tubal ligation, Smoking Status: Never smoker - Family History Maternal Family History: Reports: Cancer - Breast cancer, Diabetes Sibling Family History: Reports: Cancer - Breast cancer Paternal Family History: Reports: No pertinent history <Fadi Santana - Last Filed: 02/25/19 13:44> <Grady Brothers - Last Filed: 02/25/19 17:14> - Allergies and Home Meds Allergies/Adverse Reactions: Allergies alcohol Allergy (Verified 02/25/19 10:34) Rash--alcohol wipes doxycycline Allergy (Verified 02/25/19 10:34) Angioedema levofloxacin [From Levaquin] Allergy (Verified 02/25/19 10:34) Rash Penicillins Allergy (Verified 02/25/19 10:34) Rash clarithromycin [From Biaxin] Adverse Reaction (Verified 02/25/19 10:34) stomach pains codeine Adverse Reaction (Verified 02/25/19 10:34) Upset Stomach erythromycin base Adverse Reaction (Verified 02/25/19 10:34) Upset Stomach Primary Care Physician: Gretchen Hurt MD [Primary Care Provider] - Review of Systems All systems negative except as indicated General: Denies: Chills, Fever Cardiovascular: Reports: Chest pain Respiratory: Reports: Dyspnea, Cough, Dyspnea on exertion. Denies: Sputum <Fadi Santana - Last Filed: 02/25/19 13:44> Physical Exam Vital Signs/Narrative: Vital Signs Temp Pulse Resp BP Pulse Ox 02/25/19 10:34 98.1 F 122 H 16 106/67 93 Inital Vital Signs reviewed: Yes General: Well nourished, Well developed, No Acute Distress Head: Normocephalic, Atraumatic Eyes: Perrl, EOMI ENT: Moist mucous membranes Neck: Supple, Nontender Cardiovascular: Regular rate, Regular rhythm, No murmurs Respiratory: No distress, Chest nontender, Diminished Abdomen: Soft, Nontender, Nondistended, Normal bowel sounds, No masses Back: Nontender Extremities: Nontender, No edema Skin: Normal color, No rash Neurological: Alert, Oriented x3 <Fadi Santana - Last Filed: 02/25/19 13:44> Vital Signs/Narrative: Vital Signs Pulse Resp BP Pulse Ox 02/25/19 14:13 91 17 128/76 H 96 <Grady Brothers - Last Filed: 02/25/19 17:14> Diagnostic/Tx/Re-eval - Rhythm Strip Rhythm Strip: Sinus Rhythm Rate: 101 Ectopy: None - EKG Initial EKG Interpretation: No Acute Injury Pattern, Sinus Tachycardia Prior: Unchanged - Medical Decision Making Patient's chest x-ray shows a small left pleural effusion and a moderate right pleural effusion. Her laboratory work-up is unremarkable. Her EKG shows no signs of ischemia. Her vital signs are stable. She was ambulated with a pulse ox. She maintained 93%. She was not dyspneic. Discussed with patient that at this time even with admission to the hospital would be unable to have thoracentesis until Wednesday because it is a holiday weekend. Therefore we called and scheduled her thoracentesis for Wednesday morning at 9:15 AM here at the hospital. Family comfortable with discharge and following up on Wednesday for thoracentesis. Again she is stable. <Fadi Santana - Last Filed: 02/25/19 13:44> - Medical Decision Making I supervised the PA and have performed my own pertinent history and physical. Results and treatment plan were discussed. HPI: Patient has a history of metastatic breast cancer. She had thoracentesis for a pleural effusion on the left approximately 2 weeks ago. She reports that she has shortness of breath that is worsened over the past 2 days. Is similar to when she needed thoracentesis in the past. She denies any fever or chills. She does have a nonproductive cough. PE: Cardiovascular: Regular rate and rhythm with a 2 out of 6 systolic murmur. Respiratory: No respiratory distress. Mildly decreased air movement at the bases bilaterally. No appreciable crackles. Emergency Department course: Chest x-ray shows the left pleural effusion is slightly larger than medially following the thoracentesis. However, she has a right pleural effusion now. Abnormal Lab Results 02/25/19 02/25/19 02/25/19 11:15 11:15 13:55 WBC 14.4 H RBC 3.52 L Hgb 12.0 Hct 38.8 MCV 110.2 H MCH 34.1 H MCHC 30.9 L RDW Std Deviation 105.8 H RDW Coeff of Gus 26.2 H Plt Count 93 L MPV 13.1 H Immature Gran % (Auto) 3.500 H Neut % (Auto) 75.9 H Lymph % (Auto) 5.9 L Alcorn % (Auto) 14.1 H Eos % (Auto) 0.2 Baso % (Auto) 0.4 Absolute Neuts (auto) 10.9 H Absolute Lymphs (auto) 0.85 Nucleated RBC % 5.8 H Diff Path Review May foll Plt Morphology Comment LARGE Polychromasia 1+ Anisocytosis 3+ PT 19.6 H INR 1.7 APTT 51.0 H Sodium 139 Potassium 4.2 Chloride 106 Carbon Dioxide 25.0 Anion Gap 8 BUN 30 H Creatinine 1.00 Estim Creat Clear Calc 41.40 Est GFR (MDRD) Af Amer 70 Est GFR (MDRD) Non-Af 58 L BUN/Creatinine Ratio 30.0 H Glucose 111 H Calcium 10.0 Troponin I < 0.015 Treatment Plan: At this time I do not think patient needs to be placed on antibiotics. I suspect that her shortness of breath is due to the pleural effusion. She has a pulse ox of 93% while ambulating. She was scheduled for thoracentesis as an outpatient. She is also instructed to follow-up with her shrimp packer this week as previously scheduled. Return to the emergency department for any worsening symptoms. This note was generated with [employer] dictation software. It may contain incorrect words, spelling, and punctuation that were not noted in review of the chart prior to signing. <Grady Brothers - Last Filed: 02/25/19 17:14> ED Disposition <Fadi Santana - Last Filed: 02/25/19 13:44> <Grady Brothers - Last Filed: 02/25/19 17:14> - Plan for ED Patient: Disposition: Home or Assisted Living Diagnosis: Pleural effusion, Breast cancer metastasized to bone Instructions: Pleural Effusion Prescriptions: Ondansetron [Zofran Odt] 4 mg PO Q8H PRN PRN #15 tab PRN Reason: Nausea Prescription Printed Referrals: Gretchen Hurt MD [Primary Care Provider] -
--- NOTE | 2019-02-25 11:00 | EKG12_ITS ---
Test Reason : SOB Blood Pressure : / mmHG Vent. Rate : 106 BPM Atrial Rate : 106 BPM P-R Int : 130 ms QRS Dur : 126 ms QT Int : 368 ms P-R-T Axes : 027 014 -28 degrees QTc Int : 488 ms Sinus tachycardia Right bundle branch block T wave abnormality, consider inferior ischemia Abnormal ECG Confirmed by EVA SHIN, TARIK ([id number]), film editor supervisor JAMESON VALENCIA ([id number]) on 02/28/2019 11:02:32 AM Referred By: KARYN Confirmed By:TARIK VELASQUEZ MD
[2019-02-25] MEDS: Ondansetron 4 MG/2 ML Vial IV ×2 (11:18→13:07)
[2019-02-25 11:33] LABS: Absolute Lymphocyte Count 0.85 X10^3/uL (0.83-4.51); Absolute Neutrophil Count 10.9 X10^3/uL (2.0-7.7); Basophil# 0.06 X10^3/uL; Basophil% 0.4 % (0-1); Eosinophil# 0.03 X10^3/uL; Eosinophils% 0.2 % (0-5); Hematocrit 38.8 % (37-47); Lymphocyte # 0.85 X10^3/ul (4.0); Lymphocyte % 5.9 % (19-41); Mean Corp Hgb Conc 30.9 g/dL (32-36); Mean Corpuscular Hgb 34.1 pg (27.0-32.0); Mean Corpuscular Volume 110.2 fL (81-99); Mean Platelet Vol. 13.1 fl (6.2-12.0); Monocyte# 2.03 X10^3/uL; Monocyte% 14.1 % (0-10); Neutrophil # 10.92 X10^3/uL (2.7-7.7); Neutrophil % 75.9 % (47-70); POSITIVE COUNT YES; POSITIVE DIFFERENTIAL YES; POSITIVE MORPHOLOGY YES; Platelet Count 93 K/mm3 (150-450); RBC Distribution Width CV 26.2 % (11.6-14.6); Red Blood Count 3.52 M/mm3 (4.2-5.4); White Blood Count 14.4 K/mm3 (4.4-11.0)
[2019-02-25 11:38] LABS: Differential Indicated SCAN CRITERIA MET; NRBC Flagged by Analyzer 5.8 % (0-5); RBC Distribution Width SD 105.8 fl (35.1-43.9)
[2019-02-25 11:45] LABS: Anion Gap 8 (5-15); BUN 30 mg/dL (7-18); Chloride 106 mmol/L (98-107); EST Glomerular Filtration Rate 58 mL/min (>60); Est Glom Filt Rate - Afr Amer 70 mL/min (>60); Glucose 111 mg/dL (74-106); Potassium 4.2 mmol/L (3.5-5.1); Sodium Level 139 mmol/L (136-145)
[2019-02-25 11:57] LABS: Anisocytosis 3+; Platelet Morphology LARGE; Polychromasia 1+
[2019-02-25 14:11] LABS: International Normalized Ratio 1.7; Prothrombin Time (Protime)PT. 19.6 SECONDS (11.7-14.9)
[2019-02-28 12:18] LABS: Pathologist Review Reviewed
== END 2019-02-25 14:14 | disposition home or self-care (01) ==
PROVIDERS: Emergency Medicine; Emergency Provider Physician Assistant Medical; Family Provider Internal Medicine; PCP Internal Medicine
DX: J90 Pleural effusion, not elsewhere classified (principal); C50.919 Malignant neoplasm of unspecified site of unspecified female breast; C79.51 Secondary malignant neoplasm of bone; Z79.899 Other long term (current) drug therapy; R06.02 Shortness of breath
CPT/HCPCS: 71045; 80048; 84484; 85025; 85610; 85730; 93005; 96374; 96376; 99285; A4216; J2405

== ENCOUNTER 2019-02-28 14:25 | Inpatient (IN) | payer MEDICARE, OTHER, SELFPAY ==
[2019-02-28] VITALS (8 sets, daily range): BP systolic 103–122; BP diastolic 64–90; PULSE 105–116; RESP 13–20; TEMP 36.6–37.2; O2SAT 84–100; BMI 27.4; BMI 28.4
--- NOTE | 2019-02-28 14:31 | EKG12_ITS ---
Test Reason : SOB Blood Pressure : / mmHG Vent. Rate : 110 BPM Atrial Rate : 110 BPM P-R Int : 142 ms QRS Dur : 128 ms QT Int : 354 ms P-R-T Axes : 021 011 -18 degrees QTc Int : 479 ms Sinus tachycardia Right bundle branch block T wave abnormality, consider inferior ischemia Abnormal ECG Confirmed by LOWELL RUTH ([id number]), editor at large JAMESON VALENCIA ([id number]) on 03/01/2019 1:38:42 PM Referred By: GHANSHYAM Confirmed By:LOWELL RUTH
--- NOTE | 2019-02-28 14:46 | ED.DCSUM_ITS ---
- ER Visit Summary Date of Service: 02/28/19 Chief Complaint: Shortness of breath History of Present Illness: The patient is a 68 F history of breast cancer diagnosed about 8 years ago. Had a lumpectomy at that time. Last year in August was diagnosed with recurrent breast CA with bony metastases. She is had pleural effusions. For the last month she said shortness of breath. Denies any chest pain or hemoptysis. She is currently not on home oxygen. He has no history of COPD. He had a thoracentesis done today without any relief her oxygen was 89% and she was sent down to the ER. She denies any fever or chills. No significant cough. She states she is never had a DVT or PE. She has had leg swelling. He has had a recent hospitalization. Physical Examination: Older female no acute distress. She is hypoxic 89% on room air. HEENT exam unremarkable other than alopecia from her chemotherapy. Much with members. Neck nontender no JVD. Lungs clear to auscultation bilaterally. Mildly diminished in both bases. No rales or rhonchi. No wheezing. Heart tachycardic rate of 105 no murmur. Abdomen is soft and nontender normal bowel sounds no peritoneal signs. Extremities moves all 4. She is 2+ pitting edema both lower extremities equal symmetrical. Calves are nontender. Dorsi and plantar flexion intact. Neurologically she is awake and alert with no focal motor deficits. Test Results: Chest x-ray done earlier after thoracentesis shows bilateral pleural effusions and atelectasis. No significant change. No pneumothorax. EKG shows sinus tachycardia rate of 110 with a right bundle branch block but no signs of ischemia. Her white count was elevated 14 hemoglobin was chronic anemia. Electrolytes showed a potassium of 5.2 BUN of 45 and a creatinine 1.48. Troponin was normal. D-dimer was elevated at 10. Due to patient being hypoxic which may or may not be secondary to her pleural effusions and the elevated d- dimer I am obtaining a CTA of her chest. She has significant risk factors for a PE due to her cancer and also recent hospitalization. Emergency Department Course and Treatment: Older female with history of chemotherapy stopped 4 weeks ago due to generalized weakness. She has known breast CA with bony mets. Today after a paracentesis she still was short of breath and was sent to the ER. She does have hypoxia. Work-up will be pursued. Along with a d-dimer and possible advanced imaging. Repeat exam she is resting comfortably. On oxygen. Her pulse ox on oxygen is 98%. I had a long discussion both her and her . Patient will be turned over the one of the afternoon physicians to check the CTA results and make final disposition. If there is no PE and will determine if the patient is hypoxic and needs to be admitted that way or if she is eligible to be discharged home. She does not have oxygen at home at this time. Treatment Plan: [] Disposition: [] Impression: Acute dyspnea with hypoxia History of breast CA with bone mets History of pleural effusion This note was generated with [employer] dictation software. It may contain incorrect words, spelling, and punctuation that were not noted in review of the chart prior to signing ED Disposition - Plan for ED Patient: Referrals: Gretchen Hurt MD [Primary Care Provider] -
[2019-02-28 14:57] LABS: Absolute Neutrophil Count 10.6 X10^3/uL (2.0-7.7); Basophil# 0.05 X10^3/uL; Basophil% 0.4 % (0-1); Eosinophil# 0.03 X10^3/uL; Eosinophils% 0.2 % (0-5); Hematocrit 32.4 % (37-47); Hemoglobin 10.4 g/dL (12.0-15.0); Lymphocyte % 5.7 % (19-41); Mean Corp Hgb Conc 32.1 g/dL (32-36); Mean Corpuscular Hgb 34.9 pg (27.0-32.0); Mean Corpuscular Volume 108.7 fL (81-99); Monocyte# 2.16 X10^3/uL; Monocyte% 15.4 % (0-10); Neutrophil # 10.57 X10^3/uL (2.7-7.7); Neutrophil % 75.4 % (47-70); POSITIVE COUNT YES; POSITIVE DIFFERENTIAL YES; POSITIVE MORPHOLOGY YES; Platelet Count 90 K/mm3 (150-450); RBC Distribution Width CV 25.9 % (11.6-14.6); Red Blood Count 2.98 M/mm3 (4.2-5.4)
[2019-02-28 15:11] LABS: Anion Gap 8 (5-15); BUN 45 mg/dL (7-18); BUN/Creat Ratio 30.4 RATIO (10-20); Calcium,Total 11.1 mg/dL (8.5-10.1); Chloride 104 mmol/L (98-107); Creatinine, Serum 1.48 mg/dL (0.55-1.02); EST Glomerular Filtration Rate 37 mL/min (>60); Est Glom Filt Rate - Afr Amer 45 mL/min (>60); Estimated Creatinine Clearance 27.97 ml/min; Glucose 90 mg/dL (74-106); Potassium 5.2 mmol/L (3.5-5.1); Sodium Level 137 mmol/L (136-145)
[2019-02-28 15:48] LABS: Anisocytosis 2+; Macrocytosis 2+; Microcytosis 1+; Polychromasia 1+
[2019-02-28 15:49] LABS: Platelet Estimate ADEQUATE (ADEQ); Platelet Morphology LARGE
[2019-02-28 15:50] LABS: Differential Indicated SCAN CRITERIA MET; NRBC Flagged by Analyzer 4.4 % (0-5); RBC Distribution Width SD 102.7 fl (35.1-43.9)
[2019-02-28 16:04] LABS: D-Dimer Quantitative (DVT/PE) 10.06 FEU/ug/m (0.27-0.49)
--- NOTE | 2019-02-28 16:08 | ED.RN ---
Janessa 04.02. notified by this nurse and awaiting new orders. Will continue to monitor.
--- NOTE | 2019-02-28 16:16 | CT_ITS ---
STUDY: CTA CHEST REASON FOR EXAM: Female, 68 years old. Hypoxia RADIATION DOSAGE (If Supplied By Facility): CTDIvol = ( 10.75 ) mGy, DLP = ( 350.42 ) mGycm TECHNIQUE: The examination was performed with the intravenous administration of 75 IV Isovue 300. Post-processing of the angiographic images was performed, with multiplanar reformation and 3D reconstruction. Individualized dose optimization techniques were used for this CT. COMPARISON: None. FINDINGS: Normal enhancement of the main pulmonary artery and right and left pulmonary arteries. Normal enhancement of the bilateral peripheral pulmonary arteries. There is no demonstrated pulmonary embolism. There is atherosclerotic calcification of the aortic arch with tortuosity. There is no demonstrated aortic dissection. Normal heart and pericardium. There are calcifications of the coronary arteries. Normal mediastinum. Normal hilar regions. There are large free-flowing bilateral pleural effusions with associated bibasilar consolidations. Interstitial edema noted in the visualized lung tomas. Normal chest wall structures. Changes throughout the osseous structures suggest diffuse osseous metastasis. Limited cuts through the upper abdomen show fatty liver with ascites CT/CTA Chest W/WO Contrast IMPRESSION: No demonstrated PE, or thoracic aortic aneurysm or dissection. Large free-flowing bilateral pleural effusions with associated bibasilar consolidations. Effusions should be considered malignant. Calcified coronary vessels Diffuse osseous metastasis Electronically Signed: Jame Keating MD at 17:23 EDT , Service support ,
[2019-02-28] MEDS: 0.9% Normal Saline 1,000 ML 999 ML IV (16:28)
--- NOTE | 2019-02-28 17:49 | NURSING ---
DR KURT SALCEDO
--- NOTE | 2019-02-28 17:58 | NURSING ---
MED SURG OBS JOPPERI DYSPNEA, PLEURAL EFFUSIONS, HYPOXIA
--- NOTE | 2019-02-28 18:15 | NURSING ---
NEW ROOM [facility]
--- NOTE | 2019-02-28 18:18 | HP.PCM_ITS ---
Problem List (1) Pleural effusion Status: Acute History of Present Illness Date of Admission: 02/28/19 Chief Complaint: shortness of breath The patient is a 68 year old F presents with shortness of breath. Today, patient was having a left-sided thoracentesis performed for recurrent pleural effusions. Patient was short of breath and was sent to the emergency room where she underwent a work-up for pulmonary embolism which was negative but did show moderate size pleural effusions bilaterally. Patient already had a thoracentesis which removed 50 cc of fluid from the left. Patient states that the procedure was not aborted prematurely and there is no documentation in the thoracentesis notes that it had to be stopped early either. Patient was hypoxic at 89% upon arrival to the emergency room and was placed on oxygen where her pulse ox has remained within normal limits. [] Past Medical History Past Medical History (Chronic Problems): Chronic Problems GERD (gastroesophageal reflux disease) (Chronic) Migraine (Chronic) Breast cancer metastasized to bone (Chronic) Allergies alcohol Allergy (Verified 02/28/19 14:31) Rash--alcohol wipes doxycycline Allergy (Verified 02/28/19 14:31) Angioedema levofloxacin [From Levaquin] Allergy (Verified 02/28/19 14:31) Rash Penicillins Allergy (Verified 02/28/19 14:31) Rash cefdinir Adverse Reaction (Verified 02/28/19 17:13) Nausea clarithromycin [From Biaxin] Adverse Reaction (Verified 02/28/19 14:31) stomach pains codeine Adverse Reaction (Verified 02/28/19 14:31) Upset Stomach erythromycin base Adverse Reaction (Verified 02/28/19 14:31) Upset Stomach Home Medications: Ambulatory Orders Medication Instructions Recorded Cholecalciferol (Vitamin D3) 2,000 unit PO DAILY 12/21/16 [D3-2000] Esomeprazole Mag Trihydrate 40 mg PO DAILY 12/21/16 [Nexium] Topiramate [Topamax] 25 mg PO QHS 12/21/16 Multivitamins,Therapeutic 1 tablet PO DAILY 11/10/17 [Multivitamin] Rizatriptan Benzoate [Maxalt] 10 mg PO DAILY PRN PRN 11/06/18 traMADol [Ultram] 50 mg PO Q6H PRN PRN 11/06/18 Famotidine [Pepcid AC] 20 mg PO QHS 02/14/19 Losartan Potassium [Cozaar] 25 mg PO DAILY 02/14/19 Ondansetron [Zofran Odt] 4 mg PO Q8H PRN PRN #15 tab 02/25/19 Calcium Carb/Vitamin D3/Vit K1 1 ea PO DAILY 02/28/19 [Calcium + D Soft Chewable Tab] Hydrochlorothiazide 12.5 mg PO DAILY PRN 02/28/19 Potassium Chloride [K-Dur] 20 meq PO BID 02/28/19 Surgical History: hysterectomy, total knee arthroplasty - Bilateral knee replacement, tonsillectomy, - - R breast lumpectomy, status post tubal ligation, Psychiatric History: No pertinent psych hx Smoking Status: Never smoker - *Family History Maternal History Items: Cancer - Breast cancer, Diabetes Sibling History Items: Cancer - Breast cancer Paternal History Items: No pertinent history Review of Systems Constitutional: Denies: Anorexia, Chills, Fever Eyes: Denies: Blurred vision, Double vision HEENT: Denies: Head Aches, Sinus Congestion, Sinus Drainage Cardiovascular: Reports: Edema. Denies: Chest Pain, Palpitations Respiratory: Reports: Cough, Shortness of Breath. Denies: Sputum production Gastrointestinal: Reports: Nausea. Denies: Abdominal Pain Genitourinary: Denies: Dysuria Musculoskeletal: Denies: Joint Pain, Joint Tenderness Skin: Denies: Dryness, Jaundice Neurological: Denies: Numbness, Tingling, Focal weakness Psychiatric: Denies: Anxiety, Depression Endocrine: Denies: Change in Body Habitus, Heat/ Cold Intolerance Hematologic/ Lymphatic: Denies: Easy Bruising, Easy Bleeding, Hx of blood clot Comment: A 10 point review of systems were negative except as mentioned in the history of present illness and the other review of systems. VTE Information - Inpt Only VTE Present on Admission: No VTE Mechan Device Prophylaxis: SCD's VTE Pharm Prophylaxis ordered?: No Reason prophylaxis not ordered:: Medical Contraindication - Physical Exam General: Alert, No apparent distress, - - Frail. Afebrile. HEENT: Atraumatic, Normocephalic, - - Bald Oral: Moist Mucosa, No Gingival or Mucosal Lesions/ Ulcerations Neck: No Nodes, Thyroid Normal Size and Texture Lungs: - - Dullness to percussion in the bases Cardiovascular: Regular rate, Regular Rhythm, Normal S1, Normal S2 Abdomen: Bowel Sounds Present, Soft, Non Tender, Distended Extremities: No Calf Tenderness, Edema Skin: No rashes, No breakdown Musculoskeletal: No Tenderness to Palpation of Joints or Extremities, No Muscle Wasting Neurological: Deep Tendon Reflexes 2+/4 and Symmetrical, Sensory exam intact to light touch and pain, - - No clonus Psych/Mental Status: Appropriate, Flat Affect Vital Signs Temp Pulse Resp BP Pulse Ox 36.6 C 112 H 16 113/67 98 02/28/19 14:26 02/28/19 17:41 02/28/19 17:41 02/28/19 17:41 02/28/19 17:41 Oxygen Flow Rate (L/min) 0 Oxygen Delivery Method Nasal Cannula Weight: 68.039 kg Body Mass Index (BMI) 27.4 Intake and Output for Last 24 Hours 02/26/19 02/27/19 02/28/19 23:59 23:59 23:59 Intake Total 1000 / 1000 Balance 1000 / 1000 Laboratory Tests Past 24 Hrs 02/28/19 02/28/19 02/28/19 14:44 14:44 14:44 WBC 14.0 H RBC 2.98 L Hgb 10.4 L Hct 32.4 L MCV 108.7 H MCH 34.9 H MCHC 32.1 RDW Std Deviation 102.7 H RDW Coeff of Gus 25.9 H Plt Count 90 L Immature Gran % (Auto) 2.900 H Neut % (Auto) 75.4 H Lymph % (Auto) 5.7 L [place] % (Auto) 15.4 H Eos % (Auto) 0.2 Baso % (Auto) 0.4 Absolute Neuts (auto) 10.6 H Absolute Lymphs (auto) 0.80 L Nucleated RBC % 4.4 Differential Comment Diff Path Review May foll Platelet Estimate ADEQUATE Plt Morphology Comment LARGE Polychromasia 1+ Anisocytosis 2+ Microcytosis 1+ Macrocytosis 2+ D-Dimer Quant (PE/DVT) Cancelled Sodium 137 Potassium 5.2 H Chloride 104 Carbon Dioxide 25.0 Anion Gap 8 BUN 45 H Creatinine 1.48 H Estim Creat Clear Calc 27.97 Est GFR (MDRD) Af Amer 45 L Est GFR (MDRD) Non-Af 37 L BUN/Creatinine Ratio 30.4 H Glucose 90 Calcium 11.1 H Troponin I < 0.015 02/28/19 15:00 WBC RBC Hgb Hct MCV MCH MCHC RDW Std Deviation RDW Coeff of Gus Plt Count Immature Gran % (Auto) Neut % (Auto) Lymph % (Auto) [place] % (Auto) Eos % (Auto) Baso % (Auto) Absolute Neuts (auto) Absolute Lymphs (auto) Nucleated RBC % Differential Comment Diff Path Review Platelet Estimate Plt Morphology Comment Polychromasia Anisocytosis Microcytosis Macrocytosis D-Dimer Quant (PE/DVT) 10.06 H* Sodium Potassium Chloride Carbon Dioxide Anion Gap BUN Creatinine Estim Creat Clear Calc Est GFR (MDRD) Af Amer Est GFR (MDRD) Non-Af BUN/Creatinine Ratio Glucose Calcium Troponin I CT of the chest was reviewed and showed moderate size bilateral pleural effusions Assessment/Plan All Active Problems Hypokalemia (Acute) Acute diarrhea (Acute) Generalized weakness (Acute) Dyspnea (Acute) Pleural effusion (Acute) 1. Pleural effusions * Previously has been transudate of possible related with underlying heart failure per documentation. Cytology has previously been negative * Plan is to try again for thoracentesis on the fourth. Was attempted on the left but I did explain that if patient and her that this is free- flowing fluid but we will see if interventional radiology can try to get on the right. If not then may need to have some consideration pleurodesis which would need to be performed at a tertiary facility 2. Acute hypoxic respiratory insufficiency * Patient was 89% on room air when she arrived * Likely secondary to the pleural effusions * Check an amatory pulse ox to see if she may qualify for home oxygen 3. Breast cancer, stage IV * Patient sees Dr. Hoffamn, and according to her , patient was to therapy on the fourth. That was to take place in the afternoon. I told him both the measures that she would be able to make that and that may need to be postponed. * I did recommend palliative care and stated that we could at least provide him with some information about how to care. And make sure to clarify that this is not hospice but that would may be beneficial to help with her symptoms while she is undergoing treatment. They are both in agreement to release receiving some additional information about palliative care. 4. VTE prophylaxis: Patient moderate risk given her underlying malignancy. Patient be placed on SCDs as on hold off on chemical prophylaxis given the possible thoracentesis that she may have on the fourth Advanced care planning. Spent an additional 50 minutes discussing CODE STATUS with the patient and her . Informed him of what constitutes full code versus DNR Comfort Care Comfort Care arrest. They wish to discuss further discuss this. Informed her that we will keep her at full CODE STATUS at this point time unless we are otherwise. Code Visit OBSV E&M: 14055 Initial observation care L3 Procedures: 90956 Advncd Care Plan 30 Min
[2019-02-28] MEDS: Topiramate 25 MG Tablet PO (22:13)
[2019-02-28] MEDS: 0.9% NaCl Peripheral Flush Adult/Peds IV ×2 (22:16)
[2019-03-01] VITALS (12 sets, daily range): BP systolic 102–116; BP diastolic 44–67; PULSE 104–136; RESP 16–20; TEMP 36.5–37.2; O2SAT 95–99
[2019-03-01 06:40] LABS: Absolute Lymphocyte Count 0.93 X10^3/uL (0.83-4.51); Absolute Neutrophil Count 8.4 X10^3/uL (2.0-7.7); Basophil# 0.04 X10^3/uL; Basophil% 0.3 % (0-1); Eosinophil# 0.03 X10^3/uL; Eosinophils% 0.3 % (0-5); Hematocrit 31.5 % (37-47); Hemoglobin 10.1 g/dL (12.0-15.0); Lymphocyte # 0.93 X10^3/ul (4.0); Lymphocyte % 7.9 % (19-41); Mean Corp Hgb Conc 32.1 g/dL (32-36); Mean Corpuscular Hgb 35.3 pg (27.0-32.0); Mean Corpuscular Volume 110.1 fL (81-99); Mean Platelet Vol. 13.3 fl (6.2-12.0); Monocyte# 2.13 X10^3/uL; Neutrophil % 71.1 % (47-70); POSITIVE COUNT YES; POSITIVE DIFFERENTIAL YES; POSITIVE MORPHOLOGY YES; Platelet Count 104 K/mm3 (150-450); RBC Distribution Width CV 25.6 % (11.6-14.6); Red Blood Count 2.86 M/mm3 (4.2-5.4); White Blood Count 11.8 K/mm3 (4.4-11.0)
[2019-03-01 06:45] LABS: International Normalized Ratio 1.6; Prothrombin Time (Protime)PT. 18.6 SECONDS (11.7-14.9)
[2019-03-01 07:03] LABS: Anion Gap 9 (5-15); BUN 48 mg/dL (7-18); BUN/Creat Ratio 33.3 RATIO (10-20); Calcium,Total 10.8 mg/dL (8.5-10.1); Chloride 107 mmol/L (98-107); Creatinine, Serum 1.44 mg/dL (0.55-1.02); EST Glomerular Filtration Rate 38 mL/min (>60); Est Glom Filt Rate - Afr Amer 46 mL/min (>60); Estimated Creatinine Clearance 28.75 ml/min; Glucose 76 mg/dL (74-106); Potassium 4.3 mmol/L (3.5-5.1); Sodium Level 140 mmol/L (136-145)
[2019-03-01 07:14] LABS: NRBC Flagged by Analyzer 7.3 % (0-5); RBC Distribution Width SD 103.7 fl (35.1-43.9)
[2019-03-01 07:16] LABS: Differential Indicated SCAN CRITERIA MET
[2019-03-01 07:17] LABS: Differential Comment SCANNED; Macrocytosis 3+; Polychromasia RARE
[2019-03-01 07:18] LABS: Anisocytosis 2+
--- NOTE | 2019-03-01 09:00 | CT_ITS ---
STUDY: CT BRAIN WITHOUT CONTRAST REASON FOR EXAM: Female, 68 years old. Confusion. History of breast cancer. RADIATION DOSAGE (If Supplied By Facility): CTDIvol = ( 44.99 ) mGy, DLP = ( 745.49 ) mGycm TECHNIQUE: Transaxial CT imaging of the brain was performed without administration of intravenous contrast material. Individualized dose optimization techniques were used for this CT. COMPARISON: No relevant priors. FINDINGS: Normal soft tissue structures. Multiple lytic lesions are seen throughout the skull suggestive of a metastatic deposits. There is mild cerebral atrophy with widening of the extra-axial spaces and ventricular dilatation. There are areas of decreased attenuation within the white matter tracts of the supratentorial brain, consistent with microvascular disease changes. Normal basal ganglia and thalami. Normal brainstem. Normal cerebellum. There is no intracranial hemorrhage. There are no findings of an acute ischemic infarction. Atherosclerotic calcification of the cavernous portions of the internal carotid arteries bilaterally. Normal visualized paranasal sinuses. CT/Brain/Head without Contrast IMPRESSION: Chronic involutional changes of the brain. 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 Electronically Signed: Andrews Reeder, at 15:34 EDT , Service support ,
--- NOTE | 2019-03-01 09:06 | PCM.PROGNOTE ---
Patient Problems: Active and Suspected Problems Healthcare-associated pneumonia (Suspected) Encephalopathy (Acute) Subjective: Chief complaint: Follow-up after admission for bilateral pleural effusion, hypoxia and this morning, patient was confused and disoriented consistent with encephalopathy which is acute and also she could have probable healthcare associated pneumonia. Patient seen and examined. She is alert, confused and disoriented. She knows her full name and she answered all questions by saying her name repeatedly. She could not answer what her birthday and where she is active. When I asked her about any pain, she replied by saying her full name. She is afebrile, slightly tachycardic, blood pressure is maintained, pulse ox is 98% on 2 L. - Physical Exam General: Alert, Confused, Disoriented, Lethargic, - - Mildly short of breath. HEENT: Atraumatic, PERRLA, EOMI, Normocephalic Oral: Moist Mucosa, No Gingival or Mucosal Lesions/ Ulcerations Neck: Supple, No JVD, Negative Carotid Bruits, Trachea Midline, Thyroid Normal Size and Texture Lungs: No wheeze, No rales, Diminished, Rhonchi, Short of Breath, - - Decreased breath sounds at the bases, faint crackles bilaterally. Cardiovascular: Regular rate, Regular Rhythm, Normal S1, Normal S2, PMI Normal, Tachycardic Abdomen: Bowel Sounds Present, Soft, Non Tender, Non-Distended, No Hepato-splenomegaly Extremities: No clubbing, No cyanosis, Edema - Trace edema. Skin: No rashes, No breakdown Lymphatic: No Cervical, Supraclavicular, or Inguinal Adenopathy Neurological: Cranial nerves II-XII grossly intact, Motor Exam 5/5 strength throughout Psych/Mental Status: - - Unable to assess, patient is confused and disoriented. Vital Signs Temp Pulse Resp BP Pulse Ox 98.6 F 109 H 16 115/54 L 98 03/01/19 08:01 03/01/19 08:01 03/01/19 08:01 03/01/19 08:03/01/19 08:01 Oxygen Flow Rate (L/min) 2 Oxygen Delivery Method Nasal Cannula Weight: 155 lb 6.814 oz Body Mass Index (BMI) 28.4 Intake and Output for Last 24 Hours 02/27/19 02/28/19 03/01/19 23:59 23:59 23:59 Intake Total 1000 / 1120 120 / 120 Balance 1000 / 1120 120 / 120 Laboratory Tests Past 24 Hrs 02/28/19 02/28/19 02/28/19 14:44 14:44 14:44 WBC 14.0 H RBC 2.98 L Hgb 10.4 L Hct 32.4 L MCV 108.7 H MCH 34.9 H MCHC 32.1 RDW Std Deviation 102.7 H RDW Coeff of Gus 25.9 H Plt Count 90 L MPV Immature Gran % (Auto) 2.900 H Neut % (Auto) 75.4 H Lymph % (Auto) 5.7 L [place] % (Auto) 15.4 H Eos % (Auto) 0.2 Baso % (Auto) 0.4 Absolute Neuts (auto) 10.6 H Absolute Lymphs (auto) 0.80 L Nucleated RBC % 4.4 Differential Comment Diff Path Review May foll Platelet Estimate ADEQUATE Plt Morphology Comment LARGE Polychromasia 1+ Anisocytosis 2+ Microcytosis 1+ Macrocytosis 2+ PT INR D-Dimer Quant (PE/DVT) Cancelled Sodium 137 Potassium 5.2 H Chloride 104 Carbon Dioxide 25.0 Anion Gap 8 BUN 45 H Creatinine 1.48 H Estim Creat Clear Calc 27.97 Est GFR (MDRD) Af Amer 45 L Est GFR (MDRD) Non-Af 37 L BUN/Creatinine Ratio 30.4 H Glucose 90 Calcium 11.1 H Troponin I < 0.015 02/28/19 03/01/19 03/01/19 15:00 05:57 05:57 WBC 11.8 H RBC 2.86 L Hgb 10.1 L Hct 31.5 L MCV 110.1 H MCH 35.3 H MCHC 32.1 RDW Std Deviation 103.7 H RDW Coeff of Gus 25.6 H Plt Count 104 L MPV 13.3 H Immature Gran % (Auto) 2.400 H Neut % (Auto) 71.1 H Lymph % (Auto) 7.9 L [place] % (Auto) 18.0 H Eos % (Auto) 0.3 Baso % (Auto) 0.3 Absolute Neuts (auto) 8.4 H Absolute Lymphs (auto) 0.93 Nucleated RBC % 7.3 H Differential Comment SCANNED Diff Path Review May foll Platelet Estimate Plt Morphology Comment Polychromasia RARE Anisocytosis 2+ Microcytosis Macrocytosis 3+ PT 18.6 H INR 1.6 D-Dimer Quant (PE/DVT) 10.06 H* Sodium Potassium Chloride Carbon Dioxide Anion Gap BUN Creatinine Estim Creat Clear Calc Est GFR (MDRD) Af Amer Est GFR (MDRD) Non-Af BUN/Creatinine Ratio Glucose Calcium Troponin I 03/01/19 05:57 WBC RBC Hgb Hct MCV MCH MCHC RDW Std Deviation RDW Coeff of Gus Plt Count MPV Immature Gran % (Auto) Neut % (Auto) Lymph % (Auto) [place] % (Auto) Eos % (Auto) Baso % (Auto) Absolute Neuts (auto) Absolute Lymphs (auto) Nucleated RBC % Differential Comment Diff Path Review Platelet Estimate Plt Morphology Comment Polychromasia Anisocytosis Microcytosis Macrocytosis PT INR D-Dimer Quant (PE/DVT) Sodium 140 Potassium 4.3 Chloride 107 Carbon Dioxide 24.0 Anion Gap 9 BUN 48 H Creatinine 1.44 H Estim Creat Clear Calc 28.75 Est GFR (MDRD) Af Amer 46 L Est GFR (MDRD) Non-Af 38 L BUN/Creatinine Ratio 33.3 H Glucose 76 Calcium 10.8 H Troponin I Clinical Impression(s) from Imaging Studies Chest CTA 02/28/19 16:16 IMPRESSION: No demonstrated PE, or thoracic aortic aneurysm or dissection. Large free-flowing bilateral pleural effusions with associated bibasilar consolidations. Effusions should be considered malignant. Calcified coronary vessels Diffuse osseous metastasis Electronically Signed: Jame Keating MD at 17:23 EDT , Service support , Medical Necessity - Tobacco Use Smoking Status: Never smoker Assessment/Plan All Active Problems Encephalopathy (Acute) Pleural effusion (Acute) This is a 68 years old female patient admitted because of shortness of breath after she underwent thoracentesis yesterday for chronic recurrent bilateral pleural effusion and she was found to have large bilateral pleural effusion with bilateral basilar consolidation. This morning, patient is confused and disoriented. #1 recurrent bilateral pleural effusion: Status post thoracentesis that was done yesterday, only 50 cc of janet-colored fluid was drained. CTA chest showed no PE, showed bilateral pleural effusion and bilateral basilar consolidation. Patient had pleural fluid analysis on January, which was compatible with transudative effusion and was attributed to CHF???. Cytology was negative for malignant cells at that time. At this time, pneumonia cannot be ruled out. Patient is coughing, confused and disoriented and she did have leukocytosis on admission. Plan: Cancel thoracentesis, bronchodilators, start IV antibiotics, oncology consult. #2 encephalopathy: According to the nursing staff who spoke with the patient's , patient is usually confused and disoriented. Today, she is confused, disoriented and lethargic. No focal deficit on physical exam. Plan: CT scan brain to rule out brain mets. #3 probable healthcare associated pneumonia: This is based on shortness of breath, CT scan findings, leukocytosis as well as cough and confusion. She has been afebrile. Plan: Urinalysis, urine culture, sputum culture, start IV meropenem and vancomycin, bronchodilators, chest physiotherapy. #4 acute kidney injury: Baseline kidney function is normal. Admission creatinine is 1.48, came down to 1.44 today. Plan: Restart IV fluids, input output chart, repeat BMP tomorrow morning. #5 coagulopathy: Unclear etiology. Pro time is 18.6, INR is 1.6. Patient is not on any antiplatelets or anticoagulation. Recently, LFT was elevated. She had liver ultrasound done last month and revealed enlarged fatty liver, normal bile ducts, no demonstrated mass lesion. At this time, no evidence of active bleeding. #6 anemia/thrombocytopenia: Probably due to chemotherapy. Today's hemoglobin is 10.1, platelet count is [id number]. Plan to monitor. #7 hypertension: Blood pressure is maintained, continue losartan, DC HCTZ. #8 metastatic breast cancer: With metastasis to bone, on chemotherapy. Plan for oncology consult. #9 GERD: Continue PPI. #10 migraine: Continue Topamax. #11 DVT prophylaxis: SCDs. This note was generated with [employer] dictation software. It may contain incorrect words, spelling, and punctuation that were not noted in checking the note before signing. Code Visit Inpatient E&M: 58066 [facility] L[facility]
[2019-03-01] MEDS: Pantoprazole Sodium 40 MG Tablet PO (10:09)
[2019-03-01] MEDS: Losartan Potassium 25 MG Tablet PO (10:10)
[2019-03-01] MEDS: 0.9% Normal Saline 1,000 ML 75 ML IV ×2 (10:22→23:21)
--- NOTE | 2019-03-01 11:34 | PCM.RX.CS ---
Consult Pharmacy has been consulted to manage selected antiobiotic: Vancomycin Type of Consult: New start Suspected Infection: Pneumonia Prior Doses of Antibiotics Received/Current Regimen: 0 Labs: Sodium 140 mmol/L (136-145) 03/01/19 05:57 Potassium 4.3 mmol/L (3.5-5.1) 03/01/19 05:57 Chloride 107 mmol/L (98-107) 03/01/19 05:57 Carbon Dioxide 24.0 mmol/L (21.0-32.0) 03/01/19 05:57 9 (5-15) 03/01/19 05:57 BUN 48 mg/dL (7-18) H 03/01/19 05:57 1.44 mg/dL (0.55-1.02) H 03/01/19 05:57 Est GFR (MDRD) Af Amer 46 mL/min (>60) L 03/01/19 05:57 Est GFR (MDRD) Non-Af 38 mL/min (>60) L 03/01/19 05:57 33.3 RATIO (10-20) H 03/01/19 05:57 Glucose 76 mg/dL (74-106) 03/01/19 05:57 TROUGH LEVEL ORDERED FOR 03/03/19 @ 1045 PRIOR TO 3RD DOSE Weight used for dosin.5 kg Estimated Creatinine Clearance: 28.75 Goal Trough: 15-20 mcg/mL - VANCOMYCIN 1 GRAM X1 THEN 750MG Q24H, TROUGH ORDERED PRIOR TO 3RD DOSE Pharmacy Plan for Drug Dosing: Pharmacy Service will continue to monitor and adjust dosing as required.
[2019-03-01] MEDS: Vancomycin IV 1,000 MG/200 ML BAG 200 MG IV (12:27)
[2019-03-01] MEDS: Ipratropium/Albuterol Sulfate 3 ML AMPUL.NEB INHALATION ×2 (13:22→19:03)
--- NOTE | 2019-03-01 13:50 | CASEMGMT ---
NORA CARLOS Face to Face with patient for initial transition planning/care coordination assessment. NORA CARLOS introduced self and role at [facility]. Patient lying in bed, alert, slightly confused, at bedside. Patient willing to participate in assessment and is able to answer some questions appropriately, assisting in answering questions. Care providers, pharmacy, and demographics verified. Patient and family wish to discharge home with possible HHC. asking for information regarding Palliative Care and updated that CM will arrange for SW to see patient and for additional information. NORA CARLOS updated SW [facility] [place] regarding Palliative Care information. Patient and state they has no further needs or concerns at this time. CM to follow for discharge planning needs that may arise. PCP: Blu Specialists: Yasmin, oncologist; Dejon, transport analyst Preferred Pharmacy: [facility] [place] [employer] [facility] [place]: yes, [employer] Living Will/HPOA: yes, Toan Valderrama, will bring in documents LNOK: Living Arrangements: patient lives with in 1 story home with 2 steps to enter the home. has been assisting patient with ADLs at home. Transportation: /friends DME/HHC: Patient has shower chair, raised toilet, cane, grab bars, walker. No previous HHC of SNF. Will monitor need for home oxygen at discharge. Disposition Plan: Patient to discharge home with family support and follow-up plans in place. Will monitor for need for HHC and home oxygen. Cassy SHI, RN, CM
--- NOTE | 2019-03-01 13:52 | CHAPLAIN ---
Type of Pastoral Visit _x__ Initial Visit ___ Follow-up Visit ___ On-call Visit ___ General Patient Visit ___ Spiritual Assessment ___ Family Conference ___ Bereavement ___ Rapid Response ___ Code Blue ___ Other (describe below) Pastoral Care Referral From _x__ Patient _x__ Family ___ Nurse ___ Physician ___ Rn Orthopedic ___ Gas Appliance Servicer ___ Other (describe below) Sacrament/Intervention _x__ Active listening ___ Anointing ___ Religion ___ Bereavement ___ Communion ___ Lorenza exploration ___ ___ Life review _x__ Prayer ___ Reconciliation ___ Sacrament of Sick _x__ Supportive presence ___ Wedding ___ Other (describe below) Pastoral Comments family members in room with patient; pt is weak and not able to engage in long conversation so kept this visit fairly brief; family requested a prayer including the Our Father; offer for future support as desired
[2019-03-01 14:45] LABS: Bacteria 0 SEEN /hpf (None Seen); Mucous, Urine 0 SEEN /hpf (<or=2+); Red Blood Cells-Urine 0 SEEN /hpf (0-5); White Blood Cells 0 SEEN /hpf (0-5)
[2019-03-01 14:47] LABS: Color, Urine Yellow (Yellow); Glucose, Dipstick Normal (Normal); Ketone-Dipstick 5 mg/dl (Negative); Leukocyte Esterase-Dipstick Negative /ul (Negative); Nitrite-Dipstick Negative (Negative); Occult Blood-Urine Negative /ul (Negative); Protein-Dipstick Negative (Negative); Urine Bilirubin Dipstick Negative (Negative); Urine Clarity Sl. Cloudy (Clear); Urine Urobilinogen 1 mg/dl (Normal)
[2019-03-01 14:48] LABS: Pathologist Review Reviewed
[2019-03-01 14:52] LABS: Squamous Epithelial Cells - UA 0-5 SEEN /hpf (5-10)
[2019-03-01 14:55] LABS: Pathologist Review Reviewed
--- NOTE | 2019-03-01 15:02 | PCA ---
ghazal/makayla and i were ambulating pt from the bed to bathroom and right before getting the pt onto the toilet the pt's knees gave out and ghazal and i lowered the pt to the floor. i then called josh the pt's nurse and then i called valerie the charge nurse. We then got the pt up to a wheelchair and back to bed.
--- NOTE | 2019-03-01 15:25 | NURSING ---
LATE ENTRY - 1255 - CALLED TO PT ROOM BY PRINTER MACHINE - WAS ASSISTING UP TO BR WITH 2 ASSIST & PT WAS BACKING UP TO SIT ON TOILET, KNEES BUCKLED & PT WAS LOWERED TO GROUND. NO APPARENT INJURIES NOTED, VSS. PT PLACED IN WC & THEN RETURNED TO BED W/2 ASSIST. @ BS & AWARE OF EVENT. DR LAURA MADE AWARE OF SAME.
--- NOTE | 2019-03-01 16:31 | CASEMGMT ---
Social Work Note SW received Palliative Care consult from NORA Cottrell. Per NORA Cottrell pt's is requesting to speak about Palliative Care tomorrow and will be at [facility] after 2:00pm. SW to follow up with pt and pt's tomorrow regarding Palliative Care. Cassy Coronado AEROTRIANGULATION SPECIALIST, PIPE LINE GAUGER
[2019-03-01] MEDS: Ensure Clear 120 ML Liquid PO (22:42)
[2019-03-01] MEDS: Topiramate 25 MG Tablet PO (22:43)
[2019-03-01] MEDS: 0.9% NaCl IVPB Med Flush (250 mL) 15 ML IV (22:52)
[2019-03-02] VITALS (8 sets, daily range): BP systolic 108–113; BP diastolic 54–64; PULSE 106–120; RESP 16–18; TEMP 36.8–37.6; O2SAT 84–98
[2019-03-02 05:48] LABS: Absolute Lymphocyte Count 0.75 X10^3/uL (0.83-4.51); Absolute Neutrophil Count 10.6 X10^3/uL (2.0-7.7); Basophil# 0.05 X10^3/uL; Basophil% 0.3 % (0-1); Eosinophil# 0.04 X10^3/uL; Eosinophils% 0.3 % (0-5); Hematocrit 33.8 % (37-47); Hemoglobin 10.6 g/dL (12.0-15.0); Lymphocyte # 0.75 X10^3/ul (4.0); Lymphocyte % 4.9 % (19-41); Mean Corp Hgb Conc 31.4 g/dL (32-36); Mean Corpuscular Hgb 34.4 pg (27.0-32.0); Mean Corpuscular Volume 109.7 fL (81-99); Monocyte# 3.55 X10^3/uL; Monocyte% 23.2 % (0-10); Neutrophil # 10.57 X10^3/uL (2.7-7.7); Neutrophil % 68.9 % (47-70); POSITIVE COUNT YES; POSITIVE DIFFERENTIAL YES; POSITIVE MORPHOLOGY YES; Platelet Count 138 K/mm3 (150-450); RBC Distribution Width CV 25.5 % (11.6-14.6); Red Blood Count 3.08 M/mm3 (4.2-5.4); White Blood Count 15.3 K/mm3 (4.4-11.0)
--- NOTE | 2019-03-02 05:55 | RAD_ITS ---
STUDY: X-RAY CHEST REASON FOR EXAM: Female, 68 years old. Shortness of breath. Pleural effusions. TECHNIQUE: Single AP portable view of the chest. COMPARISON: Comparison is made with prior study dated February 28, 2019. FINDINGS: EKG electrodes are seen. Bilateral pleural effusions with underlying infiltration and/or atelectasis worse on the left side. There has been essentially no change. There is borderline cardiomegaly. Normal mediastinum and mariela. Normal visualized pulmonary arteries. There is atherosclerotic tortuosity of the aortic arch and descending thoracic aorta. Normal visualized thoracic spine. There is degenerative osteoarthritis of the bilateral shoulders. There is no demonstrated abnormality of the visualized soft tissue structures of the upper abdomen. RAD/Chest 1 View (Portable) IMPRESSION: Bilateral pleural effusions with underlying infiltration and/or atelectasis is worse on the left side. There has been essentially no change. Electronically Signed: Andrews eReder, at 8:33 EDT , Service support ,
[2019-03-02 06:00] LABS: International Normalized Ratio 1.7; Prothrombin Time (Protime)PT. 19.6 SECONDS (11.7-14.9)
[2019-03-02 06:01] LABS: Differential Indicated SCAN CRITERIA MET; NRBC Flagged by Analyzer 5.6 % (0-5); RBC Distribution Width SD 103.2 fl (35.1-43.9)
[2019-03-02 06:24] LABS: ALB/GLOB Ratio 0.8 RATIO (0.9-2.4); AST(SGOT) 258 U/L (15-37); Alanine Aminotransfer ALT/SGPT 45 U/L (13-56); Albumin, Serum 2.2 g/dL (3.2-5.0); Alkaline Phosphatase 585 U/L (45-117); Anion Gap 9 (5-15); BUN 48 mg/dL (7-18); BUN/Creat Ratio 36.1 RATIO (10-20); Calcium,Total 10.7 mg/dL (8.5-10.1); Chloride 109 mmol/L (98-107); Creatinine, Serum 1.33 mg/dL (0.55-1.02); EST Glomerular Filtration Rate 42 mL/min (>60); Est Glom Filt Rate - Afr Amer 51 mL/min (>60); Estimated Creatinine Clearance 31.13 ml/min; Globulin 2.7 g/dL (2.2-4.2); Glucose 101 mg/dL (74-106); Protein, Total 4.9 g/dL (6.4-8.2); Sodium Level 142 mmol/L (136-145)
[2019-03-02 06:25] LABS: Differential Comment SCANNED; Macrocytosis 3+; Polychromasia RARE; Schistocytes 1+
--- NOTE | 2019-03-02 08:44 | ONC.CON.INP2 ---
- Problem List (1) Encephalopathy Status: Acute (2) Breast cancer metastasized to bone Status: Chronic Qualifiers: Laterality: right Qualified Code(s): C50.911 - Malignant neoplasm of unspecified site of right female breast; C79.51 - Secondary malignant neoplasm of bone Subjective Chief Complaint: Pneumonia History of Present Illness: Diagnosis: 1) Metastatic breast cancer. ? HPI:?The patient is a 68?yo female who underwent breast conserving therapy (lumpectomy) and SLN biopsy 04/16/2011. Oncotype DX test recurrence score of 13. Received EBRT followed by AI therapy. Initially was treated with letrozole, but had increasing BP with it. Was changed to exemestane and was tolerating well. ? Had b/l salpingo--oophorectomy 01/11/2013. ? Completed 5 years worth of anastrozole. ? [place] that. ? She began developing low back pain in June 2017. It worsened and she was seen by her PCP. She was given a prescription for muscle relaxers and she had also seen a chiropractor. She took several Vicodin tablets with a caused significant constipation. She had been taking Advil. Pain had been escalating and she was referred to orthopedic surgery. MRI of the thoracic and lumbar spine disclosed widespread osseous metastatic disease and the vertebral bodies. There was a large lesion on the right side of T8 causing neural foraminal compromise with slight encroachment on the spinal cord. Extensive disease was observed in the sacrum. There was an endplate fracture of L2. ? Biopsy of one of the iliac bone metastases demonstrated metastatic breast cancer. Estrogen receptors and progesterone receptors were positive at 90% and 50%. HER-2 was quantified at 1+. ? Previous therapy for metastatic disease: 1) Palliative radiation to T7-T11, L1 to SI, left proximal femur completed 11/02/2017. 2) Palbociclib. Had significant nausea associated with severe dizziness and lightheadedness. She also had a sensation of pounding headache. She described it as hammers pounding in her head and she got no relief despite taking migraine medication and Tylenol. Once she stopped palbociclib, all symptoms promptly resolved. 3) Abemaciclib. Same symptoms as palbo, but worse. 4) Faslodex. PD with new bone lesions. 5) Palliative radiation to left shoulder completed 05/04/2018. 6) Palliative radiation to right hip completed 09/22/2018. 7)?Anastrozole and everolimus. Began 05/27/2018. 8) Taxol. Progressive disease. Was admitted several weeks ago for worsening bilateral pleural effusion associated with significant dyspnea on exertion. She underwent thoracentesis with removal of approximate 300 cc of fluid. Cytology was negative but she had significant symptomatic relief. Plans were to rotate therapy to single agent gemcitabine the last week patient developed progressive confusion. This was also associated with worsening shortness of breath. She was seen in the ED on Wednesday. Arrangements were made for outpatient thoracentesis on Wednesday. During the procedure, 50 cc of fluid were removed. Patient was sent home. She returned to the ER because of worsening dyspnea that afternoon. Additionally she was becoming more confused. She was not able to undergo outpatient brain MRI. Significant laboratory findings include elevated bilirubin was significant drop in albumin and prolongation of the prothrombin time. She is encephalopathic. She knows she is in the hospital but doesn't know which one. She is very drowsy and is not able to maintain alertness for conversation. She remains short of breath and oxygen dependent. CT scan suggested worsening bilateral effusions (when compared to that done at the [facility] 3 weeks ago). Potential basilar consolidation in each long as well. She is receiving empiric therapy for healthcare associated pneumonia. Has remained afebrile. She has no complaints of pain. Past Medical History: Chronic Problems Hypertension (Chronic) GERD (gastroesophageal reflux disease) (Chronic) Migraine (Chronic) Breast cancer metastasized to bone (Chronic) Past Medical/Surgical History: Past Medical History - Most Recent Inpatient Visit Past Medical History Start: 02/28/19 17:05 Text: Status: Complete Freq: Protocol: Document 02/28/19 17:17 [facility] (Rec: 02/28/19 17:22 [facility] [id number]) BMI Required to complete PMH What is Patient's BMI 27.4 Past Medical History Unable History Recalled No Query Text:Pt Unable/Family Not Present Neurologic Medical History Hx Stroke/TIA No Hx Dementia/Alzheimer's No Hx Parkinson's Disease No Hx Seizures No Hx Multiple Sclerosis No Hx Migraines Yes Cardiac Medical History VTE Present on Admission No Hx of Deep Vein Thrombosis/VTE/PE No Hx Hypertension No Hx Chest Pain/Angina No Hx Heart Attack No Hx Cardiac Surgery/Stents/Etc. No Hx Heart Failure No Hx Pacemaker/AICD No Hx Irregular Heartbeat and/or Afib No Hx Anticoagulant Therapy No Query Text:(Coumadin, Aspirin, Plavix, Xarelto, etc.) Hx Pain in Legs when Walking/Leg Cramps No Respiratory Medical History Hx COPD No Hx Emphysema No Hx Smoking No Smoking Status Never smoker Hx Smoking Exposure Yes: father smoked Hx Tobacco Use in last 12 months No Hx of Pipe Smoking No Hx of Cigar Smoking No Hx Sleep Apnea No Do you snore loudly (louder than talking No or can be heard through closed doors)? Do you often feel tired/ fatigued/ No sleepy during daytime? Has anyone observed you stop breathing No during sleep? STOP Results Negative GI Medical History Hx Ulcer No: gerd Hx Hepatitis No Hx Cirrhosis No Hx GI Bleed No Hx Unplanned Weight Loss Yes: 10 pounds Genitourinary Medical History Indwelling Catheter in Place on Arrival/ No Admission Hx Renal Disease No Hx Dialysis No Musculoskeletal History Hx Arthritis Yes: generalized Hx Rheumatoid Arthritis No Endocrine Medical History Hx Diabetes No Hx Thyroid Disease No Hematologic Medical History Hx of Blood Transfusion No Hx of Transfusion in last 3 Months No Ever experience any problems with No transfusion(s)? Hx of Preganancy in last 3 Months No Nurse Filling Out Transfusion & JLAMP Questions: Date: 02/28/19 Time: 17:20 Psycho/Social Medical History Hx Depression No Hx Anxiety No Hx Behavior Disorder No Hx Alcohol Use No Hx Substance Use No Other Medical History Hx Blood Disorders No Hx Anemia No Hx Cancer Yes: BREAST-last chemo December Hx Drug Resistant Organism No Wound/Pressure Injury Present on Arrival No /Admission Query Text:If yes, chart assessment in Shift/Clinical Findings Central Line/PICC/VAD Present on Arrival No /Admission Antibiotics within last 7 days? No Risk for Readmission Number of Risk Factors 3 At Risk for Readmission Patient is At Risk For Readmission Patient is eligible for Call Back Y Past Medical History GERD (gastroesophageal reflux disease) (Chronic) Migraine (Chronic) Breast cancer metastasized to bone (Chronic) Pleural effusion (Acute) Paternal Family History: No pertinent history Maternal Family History: Cancer - Breast cancer, Diabetes Sibling Family History: Cancer - Breast cancer - Social History Smoking Status: Never smoker Allergies/Adverse Reactions: Allergy/AdvReac Type Severity Reaction Status Date / Time alcohol Allergy Rash--alcohol Verified 02/28/19 14:31 wipes doxycycline Allergy Angioedema Verified 02/28/19 14:31 levofloxacin [From Levaquin] Allergy Rash Verified 02/28/19 14:31 Penicillins Allergy Rash Verified 02/28/19 14:31 cefdinir AdvReac Nausea Verified 02/28/19 17:13 clarithromycin [From Biaxin] AdvReac stomach Verified 02/28/19 14:31 pains codeine AdvReac Upset Verified 02/28/19 14:31 Stomach erythromycin base AdvReac Upset Verified 02/28/19 14:31 Stomach Vital Signs Height 1.57 m Weight: 70.5 kg Weight in Pounds 155.4 lbs Pulse Ox 93 Temperature 98.3 F Pulse Rate 110 Respiratory Rate 18 Blood Pressure 113/64 Blood Pressure Position Semi-Fowlers - Physical Exam General: Confused HEENT: - - Sclera wiht mild icterus. Cardiac:: Regular rate Lungs: - - No air entry at the bases. Clear otherwise with passive resps. Abdomen:: Non-tender Laboratory Data: Laboratory Tests 03/02/19 03/02/19 03/02/19 Range/Units 05:20 05:20 05:20 WBC 15.3 H (4.4-11.0) K/mm3 RBC 3.08 L (4.2-5.4) M/mm3 Hgb 10.6 L (12.0-15.0) g/dL Hct 33.8 L (37-47) % MCV 109.7 H (81-99) fL MCH 34.4 H (27.0-32.0) pg MCHC 31.4 L (32-36) g/dL RDW Std Deviation 103.2 H (35.1-43.9) fl RDW Coeff of Gus 25.5 H (11.6-14.6) % Plt Count 138 L (150-450) K/mm3 MPV 13.0 H (6.2-12.0) fl Immature Gran % (Auto) 2.400 H (0.0-0.9) % Neut % (Auto) 68.9 (47-70) % Lymph % (Auto) 4.9 L (19-41) % Harris % (Auto) 23.2 H (0-10) % Eos % (Auto) 0.3 (0-5) % Baso % (Auto) 0.3 (0-1) % Absolute Neuts (auto) 10.6 H (2.0-7.7) X10^3/uL Absolute Lymphs (auto) 0.75 L (0.83-4.51) X10^3/uL Nucleated RBC % 5.6 H (0-5) % Differential Comment SCANNED Diff Path Review May foll Polychromasia RARE Macrocytosis 3+ Schistocytes 1+ PT 19.6 H (11.7-14.9) SECONDS INR 1.7 Sodium 142 (136-145) mmol/L Potassium 4.0 (3.5-5.1) mmol/L Chloride 109 H (98-107) mmol/L Carbon Dioxide 24.0 (21.0-32.0) mmol/L Anion Gap 9 (5-15) BUN 48 H (7-18) mg/dL Creatinine 1.33 H (0.55-1.02) mg/dL Estim Creat Clear Calc 31.13 ml/min Est GFR (MDRD) Af Amer 51 L (>60) mL/min Est GFR (MDRD) Non-Af 42 L (>60) mL/min BUN/Creatinine Ratio 36.1 H (10-20) RATIO Glucose 101 (74-106) mg/dL Calcium 10.7 H (8.5-10.1) mg/dL Total Bilirubin 3.70 H (0.20-1.00) mg/dL AST 258 H (15-37) U/L ALT 45 (13-56) U/L Alkaline Phosphatase 585 H (45-117) U/L Total Protein 4.9 L (6.4-8.2) g/dL Albumin 2.2 L (3.2-5.0) g/dL Globulin 2.7 (2.2-4.2) g/dL Albumin/Globulin Ratio 0.8 L (0.9-2.4) RATIO Urine Color (Yellow) Urine Clarity (Clear) Urine pH (5.0 - 8.0) Ur Specific [place] (1.002-1.030) Urine Protein (Negative) mg/dl Urine Glucose (UA) (Normal) mg/dl Urine Ketones (Negative) mg/dl Urine Occult Blood (Negative) /ul Urine Nitrite (Negative) Urine Bilirubin (Negative) mg/dL Urine Urobilinogen (Normal) mg/dl Ur Leukocyte Esterase (Negative) /ul Urine RBC (0-5) /hpf Urine WBC (0-5) /hpf Ur Squamous Epith Cells (5-10) /hpf Urine Bacteria (None Seen) /hpf Urine Mucus (<or=2+) /hpf 03/01/19 03/01/19 02/28/19 Range/Units 14:30 05:57 14:44 WBC (4.4-11.0) K/mm3 RBC (4.2-5.4) M/mm3 Hgb (12.0-15.0) g/dL Hct (37-47) % MCV (81-99) fL MCH (27.0-32.0) pg MCHC (32-36) g/dL RDW Std Deviation (35.1-43.9) fl RDW Coeff of Gus (11.6-14.6) % Plt Count (150-450) K/mm3 MPV (6.2-12.0) fl Immature Gran % (Auto) (0.0-0.9) % Neut % (Auto) (47-70) % Lymph % (Auto) (19-41) % Harris % (Auto) (0-10) % Eos % (Auto) (0-5) % Baso % (Auto) (0-1) % Absolute Neuts (auto) (2.0-7.7) X10^3/uL Absolute Lymphs (auto) (0.83-4.51) X10^3/uL Nucleated RBC % (0-5) % Differential Comment Diff Path Review Reviewed Reviewed Polychromasia Macrocytosis Schistocytes PT (11.7-14.9) SECONDS INR Sodium (136-145) mmol/L Potassium (3.5-5.1) mmol/L Chloride (98-107) mmol/L Carbon Dioxide (21.0-32.0) mmol/L Anion Gap (5-15) BUN (7-18) mg/dL Creatinine (0.55-1.02) mg/dL Estim Creat Clear Calc ml/min Est GFR (MDRD) Af Amer (>60) mL/min Est GFR (MDRD) Non-Af (>60) mL/min BUN/Creatinine Ratio (10-20) RATIO Glucose (74-106) mg/dL Calcium (8.5-10.1) mg/dL Total Bilirubin (0.20-1.00) mg/dL AST (15-37) U/L ALT (13-56) U/L Alkaline Phosphatase (45-117) U/L Total Protein (6.4-8.2) g/dL Albumin (3.2-5.0) g/dL Globulin (2.2-4.2) g/dL Albumin/Globulin Ratio (0.9-2.4) RATIO Urine Color Yellow (Yellow) Urine Clarity Sl. Cloudy (Clear) Urine pH 5.0 (5.0 - 8.0) Ur Specific [place] 1.020 (1.002-1.030) Urine Protein Negative (Negative) mg/dl Urine Glucose (UA) Normal (Normal) mg/dl Urine Ketones 5 H (Negative) mg/dl Urine Occult Blood Negative (Negative) /ul Urine Nitrite Negative (Negative) Urine Bilirubin Negative (Negative) mg/dL Urine Urobilinogen 1 H (Normal) mg/dl Ur Leukocyte Esterase Negative (Negative) /ul Urine RBC 0 SEEN (0-5) /hpf Urine WBC 0 SEEN (0-5) /hpf Ur Squamous Epith Cells 0-5 SEEN (5-10) /hpf Urine Bacteria 0 SEEN (None Seen) /hpf Urine Mucus 0 SEEN (<or=2+) /hpf Diagnostic Data: Diagnostic Data Chest CTA 02/28/19 16:16 IMPRESSION: No demonstrated PE, or thoracic aortic aneurysm or dissection. Large free-flowing bilateral pleural effusions with associated bibasilar consolidations. Effusions should be considered malignant. Calcified coronary vessels Diffuse osseous metastasis Electronically Signed: Jame Keating MD at 17:23 EDT , Service support , Brain CT 03/01/19 09:00 IMPRESSION: Chronic involutional changes of the brain. 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 Electronically Signed: Andrews Reeder, at 15:34 EDT , Service support , Chest X-Ray 03/02/19 05:55 IMPRESSION: Bilateral pleural effusions with underlying infiltration and/or atelectasis is worse on the left side. There has been essentially no change. Electronically Signed: Andrews Reeder, at 8:33 EDT , Service support , Assessment and Plan 1) Encephalopathy. Assessment: -In summary the patient is a 68-year-old female who has progressive widespread skeletal metastases from breast cancer and recently had progression of disease on single agent Taxol. She is now admitted for worsening dyspnea associated with increasing bilateral pleural effusions and encephalopathy. Etiology of encephalopathy includes leptomeningeal disease, hepatic failure and possible hypercalcemia or any combination thereof. She is not a candidate for further cytotoxic chemotherapy. Her prognosis is measured in days. I discussed this with the in the presence of the patient. He has returned for health care decisions and is in agreement with inpatient hospice care. Plan: -Change code status to DNR-CC. -Consult hospice for transfer to inpatient hospice care. -Discussed with Dr. Up. Medications: Prescriptions This Visit Medication Instructions Recorded Calcium Carb/Vitamin D3/Vit K1 1 ea PO DAILY 02/28/19 [Calcium + D Soft Chewable Tab] Hydrochlorothiazide 12.5 mg PO DAILY PRN 02/28/19 Potassium Chloride [K-Dur] 20 meq PO BID 02/28/19 Medications Added to Medication List This Visit Category Date Time Status Vancomycin IV 750 mg Med 03/02/19 11:15 Active 0.9% Normal Saline 250 ml IV Q24H Primary Care Provider: Gretchen Hurt MD Referring Provider:
[2019-03-02] MEDS: Ensure Clear 120 ML Liquid PO (09:38)
[2019-03-02] MEDS: Pantoprazole Sodium 40 MG Tablet PO (09:39)
--- NOTE | 2019-03-02 11:02 | CASEMGMT ---
Social Work Note Physician updated this worker that Dr. Hoffman met with pt and pt's and are agreeable to Hospice referral and pt will likely go to inpatient hospice unit. ALEXSANDER placed a call to [facility] and spoke with NORA Armenta and provided referral. Kathi asked if pt's is still at [facility]. SW back to meet with pt. Pt's not at [facility] but pt's sister in law present. Pt's sister in law states pt's went to work and will be back around 12:00pm. Pt's sister in law provided pt's 's cell phone number. This worker relayed pt's cell phone number to NORA Armenta who states she will call pt's to update on meeting time. RN present in room and updated on Hospice meeting time. ALEXSANDER faxed referral to [facility]. Plan: [facility] will be meeting with pt and pt's family today at 12:30pm. Cassy Coronado [employer]AM [employer] TURBINE ASSEMBLER, SOCIAL SERVICES DIRECTOR
[2019-03-02] MEDS: 0.9% NaCl IVPB Med Flush (250 mL) 15 ML IV (12:23)
[2019-03-02] MEDS: 0.9% Normal Saline 1,000 ML 75 ML IV (12:23)
[2019-03-02] MEDS: 0.9% NaCl Peripheral Flush Adult/Peds IV (12:24)
[2019-03-02 12:46] LABS: Pathologist Review Reviewed
--- NOTE | 2019-03-02 12:55 | NURSING ---
hospice/ palliative care has arrived at this time to meet with patient and family members.
--- NOTE | 2019-03-02 14:15 | DS.PCM_ITS ---
Discharge Date and Diagnosis - Problem List Patient Problems: Active and Suspected Problems Healthcare-associated pneumonia (Suspected) Encephalopathy (Acute) Date of Admission: 02/28/19 Date of Discharge: 03/02/19 - Primary Discharge Diagnosis Active and Suspected Problems #1 metastatic breast cancer with mets to bone. #2 recurrent bilateral pleural effusion. #3 encephalopathy, attributed to hepatic encephalopathy. #4 probable acute hepatic failure. #5 acute kidney injury. #6 probable healthcare associated pneumonia. - Secondary Discharge Diagnosis Chronic Problems Hypertension (Chronic) GERD (gastroesophageal reflux disease) (Chronic) Migraine (Chronic) Breast cancer metastasized to bone (Chronic) Hospital Course and Treatment Imaging Results: 03/02/19 05:55 CXR [Chest 1 View (Portable)] [RAD] AM (NON MEDS) Clinical Impression(s) from Imaging Studies Chest CTA 02/28/19 16:16 IMPRESSION: No demonstrated PE, or thoracic aortic aneurysm or dissection. Large free-flowing bilateral pleural effusions with associated bibasilar consolidations. Effusions should be considered malignant. Calcified coronary vessels Diffuse osseous metastasis Electronically Signed: Jame Keating MD at 17:23 EDT , Service support , Brain CT 03/01/19 09:00 IMPRESSION: Chronic involutional changes of the brain. 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 Electronically Signed: Andrews Reeder, at 15:34 EDT , Service support , Chest X-Ray 03/02/19 05:55 IMPRESSION: Bilateral pleural effusions with underlying infiltration and/or atelectasis is worse on the left side. There has been essentially no change. Electronically Signed: Andrews Reeder, at 8:33 EDT , Service support , Operations: None Summary of Care Provided: The patient is a 68 year old F admitted because of increasing shortness of breath after she underwent thoracentesis for chronic bilateral pleural effusion. She was found to have large sized bilateral pleural effusion with bilateral basilar consolidation on CTA chest that also showed no evidence of PE or dissection. During this hospital stay, patient was confused and disoriented although reportedly, she is confused at baseline but apparently, it has been getting worse. 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 Patient was treated with IV vancomycin and meropenem for probable pneumonia based on CTA chest findings as well as cough, confusion and leukocytosis. Patient was found to have acute kidney injury which is attributed to dehydration and she was treated with IV fluids. She was found to have coagulopathy with prolonged PT and INR. Patient was not on any antiplatelets or anticoagulation. Her LFT was elevated. Patient did have evidence of acute hepatic failure which could be due to paclitaxel that she has been receiving for breast cancer. Oncology consulted and Dr. Hoffman had a long discussion with the patient's about the future plan. Patient had progressive widespread skeletal metastasis and recently had a progression of her disease while on paclitaxel. Dr. Hoffman states that patient is not a candidate for further cytotoxic chemotherapy and her prognosis is poor. After discussion with the patient's , decision was made to consult hospice and palliative care for evaluation. Hospice and palliative care team evaluated the patient and patient was appropriate for inpatient hospice and palliative care treatment. Patient was transferred to inpatient hospice facility. Patient Problems: Active and Suspected Problems Healthcare-associated pneumonia (Suspected) Encephalopathy (Acute) - Physical Exam General: Alert, Confused, Disoriented, Lethargic HEENT: Atraumatic, PERRLA, EOMI, Normocephalic, - - Patient does have asterixis, flapping tremor. Oral: Moist Mucosa, No Gingival or Mucosal Lesions/ Ulcerations Neck: Supple, No JVD, Negative Carotid Bruits, Trachea Midline, Thyroid Normal Size and Texture Lungs: Diminished, Rhonchi, Short of Breath, - - Decreased breath sounds at the bases, faint crackles. Cardiovascular: Regular rate, Regular Rhythm, Normal S1, Normal S2, PMI Normal, Tachycardic Abdomen: Bowel Sounds Present, Soft, Non Tender, Non-Distended, No Hepato- splenomegaly Extremities: No clubbing, No cyanosis, Edema Skin: No rashes, No breakdown Lymphatic: No Cervical, Supraclavicular, or Inguinal Adenopathy Neurological: Cranial nerves II-XII grossly intact, Motor Exam 5/5 strength throughout Psych/Mental Status: - - Unable to assess. Vital Signs Temp Pulse Resp BP Pulse Ox 99.6 F H 120 H 18 111/55 L 96 03/02/19 11:42 03/02/19 11:59 03/02/19 11:42 03/02/19 11:42 03/02/19 11:42 Oxygen Flow Rate (L/min) 2 Oxygen Delivery Method Nasal Cannula Weight: 155 lb 6.814 oz Body Mass Index (BMI) 28.4 Intake and Output for Last 24 Hours 02/28/19 03/01/19 03/02/19 23:59 23:59 23:59 Intake Total 1000 / 1120 2203.75 / 2203.75 1772.5 / 1772.5 Output Total 350 / 350 250 / 250 Balance 1000 / 1120 1853.75 / 1853.75 1522.5 / 1522.5 Microbiology Past 72 Hours 03/01/19 14:30 Urine Culture - Preliminary Urine Catheter - Mike Culture exhibits no growth. Laboratory Tests Past 24 Hrs 02/28/19 03/01/19 03/01/19 14:44 05:57 14:30 WBC RBC Hgb Hct MCV MCH MCHC RDW Std Deviation RDW Coeff of Gus Plt Count MPV Immature Gran % (Auto) Neut % (Auto) Lymph % (Auto) [place] % (Auto) Eos % (Auto) Baso % (Auto) Absolute Neuts (auto) Absolute Lymphs (auto) Nucleated RBC % Differential Comment Diff Path Review Reviewed Reviewed Polychromasia Macrocytosis Schistocytes PT INR Sodium Potassium Chloride Carbon Dioxide Anion Gap BUN Creatinine Estim Creat Clear Calc Est GFR (MDRD) Af Amer Est GFR (MDRD) Non-Af BUN/Creatinine Ratio Glucose Calcium Total Bilirubin AST ALT Alkaline Phosphatase Total Protein Albumin Globulin Albumin/Globulin Ratio Urine Color Yellow Urine Clarity Sl. Cloudy Urine pH 5.0 Ur Specific [place] 1.020 Urine Protein Negative Urine Glucose (UA) Normal Urine Ketones 5 H Urine Occult Blood Negative Urine Nitrite Negative Urine Bilirubin Negative Urine Urobilinogen 1 H Ur Leukocyte Esterase Negative Urine RBC 0 SEEN Urine WBC 0 SEEN Ur Squamous Epith Cells 0-5 SEEN Urine Bacteria 0 SEEN Urine Mucus 0 SEEN 03/02/19 03/02/19 03/02/19 05:20 05:20 05:20 WBC 15.3 H RBC 3.08 L Hgb 10.6 L Hct 33.8 L MCV 109.7 H MCH 34.4 H MCHC 31.4 L RDW Std Deviation 103.2 H RDW Coeff of Gus 25.5 H Plt Count 138 L MPV 13.0 H Immature Gran % (Auto) 2.400 H Neut % (Auto) 68.9 Lymph % (Auto) 4.9 L [place] % (Auto) 23.2 H Eos % (Auto) 0.3 Baso % (Auto) 0.3 Absolute Neuts (auto) 10.6 H Absolute Lymphs (auto) 0.75 L Nucleated RBC % 5.6 H Differential Comment SCANNED Diff Path Review Reviewed Polychromasia RARE Macrocytosis 3+ Schistocytes 1+ PT 19.6 H INR 1.7 Sodium 142 Potassium 4.0 Chloride 109 H Carbon Dioxide 24.0 Anion Gap 9 BUN 48 H Creatinine 1.33 H Estim Creat Clear Calc 31.13 Est GFR (MDRD) Af Amer 51 L Est GFR (MDRD) Non-Af 42 L BUN/Creatinine Ratio 36.1 H Glucose 101 Calcium 10.7 H Total Bilirubin 3.70 H AST 258 H ALT 45 Alkaline Phosphatase 585 H Total Protein 4.9 L Albumin 2.2 L Globulin 2.7 Albumin/Globulin Ratio 0.8 L Urine Color Urine Clarity Urine pH Ur Specific [place] Urine Protein Urine Glucose (UA) Urine Ketones Urine Occult Blood Urine Nitrite Urine Bilirubin Urine Urobilinogen Ur Leukocyte Esterase Urine RBC Urine WBC Ur Squamous Epith Cells Urine Bacteria Urine Mucus Home Medications: Medications to take at Discharge Cholecalciferol (Vitamin D3) [D3-2000] 2,000 unit PO DAILY 12/21/16 Esomeprazole Mag Trihydrate [Nexium] 40 mg PO DAILY 12/21/16 Topiramate [Topamax] 25 mg PO QHS 12/21/16 Multivitamins,Therapeutic [Multivitamin] 1 tab PO DAILY 11/10/17 Rizatriptan Benzoate [Maxalt] 10 mg PO DAILY PRN PRN 11/06/18 traMADol [Ultram] 50 mg PO Q6H PRN PRN 11/06/18 Famotidine [Pepcid AC] 20 mg PO QHS 02/14/19 Losartan Potassium [Cozaar] 25 mg PO DAILY 02/14/19 Ondansetron [Zofran Odt] 4 mg PO Q8H PRN PRN #15 tab 02/25/19 Calcium Carb/Vitamin D3/Vit K1 [Calcium + D Soft Chewable Tab] 1 ea PO DAILY 02/28/19 Hydrochlorothiazide 12.5 mg PO DAILY PRN 02/28/19 Potassium Chloride [K-Dur] 20 meq PO BID 02/28/19 Primary Care Physician: Gretchen Hurt MD [Primary Care Provider] - Disposition: Hospice Medical Facility Minutes spent on discharge:: 34 Patient Condition:: Stable Medical Necessity - Tobacco Use Smoking Status: Never smoker Meaningful Use Info Meaningful Use Diagnoses (Choose all that apply): None applicable Code Visit Inpatient E&M: 94640 Disch Hosp
== END 2019-03-02 14:10 | disposition hospice, inpatient (51) | DRG 597 ==
LOC: ED 14:50 → MS3 18:20
PROVIDERS: Emergency Provider Emergency Medicine; Family Provider Internal Medicine; PCP Internal Medicine; Visit Provider Hospitalist
DX: C50.919 Malignant neoplasm of unspecified site of unspecified female breast (principal); K72.00 Acute and subacute hepatic failure without coma; J18.9 Pneumonia, unspecified organism; N17.9 Acute kidney failure, unspecified; C79.51 Secondary malignant neoplasm of bone; J90 Pleural effusion, not elsewhere classified; R09.02 Hypoxemia; R06.89 Other abnormalities of breathing; G43.909 Migraine, unspecified, not intractable, without status migrainosus; Z92.3 Personal history of irradiation; Z66 Do not resuscitate; Z51.5 Encounter for palliative care; Z17.0 Estrogen receptor positive status [ER+]; Y95 Nosocomial condition; K21.9 Gastro-esophageal reflux disease without esophagitis; I10 Essential (primary) hypertension; D69.6 Thrombocytopenia, unspecified
CPT/HCPCS: 32555; 36415; 36430; 70450; 71045; 71046; 71275; 80048; 80053; 81001; 84484; 85025; 85379; 85610; 86900; 86901; 87086; 93005; 94640; 94667; 94668; 97802; 99285; J2185; J7030; J7040; J7050; P9017; Q9967; A4216

== ENCOUNTER → 2019-02-28 | Outpatient (CLI) | payer MEDICARE, OTHER, SELFPAY ==
[2019-02-25 10:34] VITALS: BMI 27.2
[2019-02-28 09:21] VITALS: BP 94/58; PULSE 115; RESP 24; TEMP 36.6; O2SAT 91; BMI 27.4
[2019-02-28 10:26] VITALS: BP 92/63; PULSE 104; RESP 22; TEMP 36.3; O2SAT 92
[2019-02-28 11:37] VITALS: BP 110/61; PULSE 104; RESP 26; TEMP 36.7; O2SAT 91
--- NOTE | 2019-02-28 12:51 | US_ITS ---
PROCEDURE: ULTRASOUND GUIDED THORACENTESIS. DATE: February 28, 2019.. INDICATION: Female, 68 years old. Left pleural effusion. PHYSICIAN: Andrews Reeder M.D. PROCEDURE: The risks, benefits, and alternatives to the procedure were explained to the patient. The specific risks of bleeding, infection, and pneumothorax requiring chest tube insertion were discussed and accepted. Written informed consent was obtained. Ultrasonographic evaluation of the left lower pleural space was carried out. An adequate pocket was identified. The patient was placed in the sitting, upright position. The overlying skin was prepped and draped in sterile fashion. 1% lidocaine was administered subcutaneously for local anesthesia. Under ultrasound guidance, a 5 Hungarian thoracentesis needle/catheter system was advanced into the left posterior lower pleural fluid collection. Approximately 50 mL of janet-colored fluid was drained. The catheter was removed, and a sterile dressing was applied. A specimen was collected and sent to the laboratory for analysis, as requested by the referring clinician. The patient tolerated the procedure well. A chest x-ray was ordered. US/Thoracentesis W US IMPRESSION: Ultrasound-guided left thoracentesis. Electronically Signed: Andrews Reeder, at 14:02 EDT , Service support ,
[2019-02-28 13:15] VITALS: BP 127/73; BP 127/74; BP 134/70; BP 136/71; PULSE 110; PULSE 111; PULSE 92; RESP 18; RESP 24; O2SAT 89; O2SAT 91; O2SAT 92
[2019-02-28 13:30] VITALS: BP 136/71; PULSE 92; RESP 24; O2SAT 92
--- NOTE | 2019-02-28 13:38 | RAD_ITS ---
STUDY: X-RAY CHEST REASON FOR EXAM: Female, 68 years old. The patient is status post left thoracentesis. TECHNIQUE: AP inspiration and expiration views. COMPARISON: Comparison is made with prior study dated February 25, 2019 at 10:45 AM. FINDINGS: The patient is status post left thoracentesis. There is no evidence of pneumothorax. Residual pleural parenchymal changes at both lung bases. Stable bony metastasis. RAD/Chest Insp/Exp 2 View IMPRESSION: Status post left thoracentesis. No evidence of pneumothorax. Electronically Signed: Andrews Reeder, at 14:01 EDT , Service support ,
== END | disposition home or self-care (01) ==
LOC: MEDOUTP 08:51
PROVIDERS: Family Provider Internal Medicine; PCP Internal Medicine; Visit Provider Emergency Medicine
DX: D69.6 Thrombocytopenia, unspecified (principal); J90 Pleural effusion, not elsewhere classified
CPT/HCPCS: 32555; 36430; 71046; 86900; 86901; J7040; P9017; A4216